=== PATIENT | female | born 1955 | race Caucasian/White ===

== ENCOUNTER 2023-08-09 09:13 | Observation (INO) ==
--- NOTE | 2023-07-16 10:15 | PAT Medication Instructions ---
Medication Instructions Date of Service July 16, 2023 Home Medications acetaminophen 325 mg capsule 325 mg PO QID PRN prn albuterol sulfate 90 mcg/actuation aerosol inhaler (Ventolin HFA) 2 puff inhalation Q6H PRN prn ascorbic acid (vitamin C) 500 mg capsule 500 mg PO TID azithromycin 250 mg tablet 250 mg PO QAM budesonide-formoterol HFA 80 mcg-4.5 mcg/actuation aerosol inhaler (Symbicort) 2 puff inhalation BID famotidine 20 mg tablet 20 mg PO BID ferrous sulfate 325 mg (65 mg iron) tablet 325 mg PO TID furosemide 20 mg tablet 20 mg PO QAM ipratropium 0.5 mg-albuterol 3 mg (2.5 mg base)/3 mL nebulization soln 3 ml inhalation Q6H PRN prn levothyroxine 50 mcg capsule 50 mcg PO QAM omeprazole 20 mg capsule,delayed release 20 mg PO QAM pregabalin 50 mg capsule 100 mg PO HS rivaroxaban 10 mg tablet 10 mg PO QPM Factor 5 2 tab PO QAM Respiractin 1 cap PO QPM Continue as directed azithromycin 250 mg tablet 250 mg PO QAM ASK your prescriber and surgeon rivaroxaban 10 mg tablet 10 mg PO QPM (in order to get spinal anesthesia DOS- must be off Xarelto/rivaroxaban for at least 72 hours) STOP taking 2 weeks before surgery Factor 5 2 tab PO QAM Respiractin 1 cap PO QPM DO NOT take the morning of surgery ascorbic acid (vitamin C) 500 mg capsule 500 mg PO TID ferrous sulfate 325 mg (65 mg iron) tablet 325 mg PO TID furosemide 20 mg tablet 20 mg PO QAM Take morning of surgery With a small sip of water, OTHERWISE NOTHING TO EAT OR DRINK AFTER MIDNIGHT: acetaminophen 325 mg capsule 325 mg PO QID PRN (if needed) albuterol sulfate 90 mcg/actuation aerosol inhaler (Ventolin HFA) 2 puff inhalation Q6H PRN (use if needed; please bring with you to hospital day of surgery if possible) budesonide-formoterol HFA 80 mcg-4.5 mcg/actuation aerosol inhaler (Symbicort) 2 puff inhalation BID famotidine 20 mg tablet 20 mg PO BID ipratropium 0.5 mg-albuterol 3 mg (2.5 mg base)/3 mL nebulization soln 3 ml inhalation Q6H PRN (if needed) levothyroxine 50 mcg capsule 50 mcg PO QAM omeprazole 20 mg capsule,delayed release 20 mg PO QAM Take evening before surgery acetaminophen 325 mg capsule 325 mg PO QID PRN (if needed) albuterol sulfate 90 mcg/actuation aerosol inhaler (Ventolin HFA) 2 puff inhalation Q6H PRN (if needed) ascorbic acid (vitamin C) 500 mg capsule 500 mg PO TID budesonide-formoterol HFA 80 mcg-4.5 mcg/actuation aerosol inhaler (Symbicort) 2 puff inhalation BID famotidine 20 mg tablet 20 mg PO BID ferrous sulfate 325 mg (65 mg iron) tablet 325 mg PO TID ipratropium 0.5 mg-albuterol 3 mg (2.5 mg base)/3 mL nebulization soln 3 ml inhalation Q6H PRN (if needed) pregabalin 50 mg capsule 100 mg PO HS Other Notes If you have any questions please call us at [phone] or [phone] or [phone] or [phone]
--- NOTE | 2023-07-19 08:54 | Anesthesiology Consultation ---
Date of Service July 19, 2023 Assessment & Plan (1) Encounter for pre-operative examination: Chart Review Chart Review: Acceptable Risk for Surgery and Patient seen in Pre Admission Testing - Patient is NOT an OPJ candidate (currently scheduled as 23 hour obs) Per PAT appt on 07/19/23, no recent illness/disease exposures, illness related symptoms, or recent illness/disease positive tests. Will leave to surgeon's discretion if preop Covid testing needed Patient seen by pulm 07/11/23= patient seen for routine follow-up and to review the results of her test. Has been fairly stable and tries to be functional. Still shortness of breath with moderate to strenuous activities. Patient is planning to have right knee replacement surgery and was wondering if it would be okay to go off Xarelto for 3 days prior to procedure. Interstitial lung diseasepatient clinically stable remains functional. Will continue to monitor conservatively at this point. Pulmonary hypertensionusing diuretic as recommen ded. OSAusing CPAP. Moderate persistent asthmacontinue with inhaler. Stable hernia with GERDcontinue reflux precautions. Morbid obesitycontinue diet and exercise as tolerated. COVID-19clinically stable. History of pulmonary embolismon Xarelto. She can stop her Xarelto 3 days before surgery. Continue current medications. Follow-up in 1 year Teaching & Discussion Pre-Anesthesia Teaching/Discussion Notes: Instructed NPO after midnight before surgery,except medications with 15 cc of water. Medication instructions provided according to the PAT guidelines. History Surgery Operation Date: 08/10/23 08:10 Proposed Procedures p Right Total Knee Arthroplasty - Amilcar Johnston, Height/Weight Height: 5 ft 1 in Weight: 110 kg Allergies Allergy/AdvReac Type Severity Reaction Status Date / Time enoxaparin [From Lovenox] Allergy Severe Rash Verified 07/13/23 11:27 contrast Allergy Severe rash, Uncoded 07/13/23 11:27 itching, chills Medications Home Medications Medication Instructions Recorded Confirmed Last Taken acetaminophen 325 mg capsule 325 mg PO QID PRN prn 05/16/23 07/16/23 Unknown albuterol sulfate 90 mcg/actuation 2 puff inhalation Q6H PRN prn 05/16/23 1 09/16/22 Unknown aerosol inhaler (Ventolin HFA) ascorbic acid (vitamin C) 500 mg 500 mg PO TID 05/16/23 07/16/23 Unknown capsule azithromycin 250 mg tablet 250 mg PO QAM 05/16/23 07/16/23 Unknown budesonide-formoterol HFA 80 2 puff inhalation BID 05/16/23 07/16/23 Unknown mcg-4.5 mcg/actuation aerosol inhaler (Symbicort) famotidine 20 mg tablet 20 mg PO BID 05/16/23 07/16/23 Unknown ferrous sulfate 325 mg (65 mg 325 mg PO TID 05/16/23 07/16/23 Unknown iron) tablet furosemide 20 mg tablet 20 mg PO QAM 05/16/23 07/16/23 Unknown ipratropium 0.5 mg-albuterol 3 mg 3 ml inhalation Q6H PRN prn 05/16/23 07/16/23 Unknown (2.5 mg base)/3 mL nebulization soln levothyroxine 50 mcg capsule 50 mcg PO QAM 05/16/23 07/16/23 Unknown omeprazole 20 mg capsule,delayed 20 mg PO QAM 05/16/23 07/16/23 Unknown release pregabalin 50 mg capsule 100 mg PO HS 05/16/23 07/16/23 Unknown rivaroxaban 10 mg tablet 10 mg PO QPM 05/16/23 07/16/23 Unknown Factor 5 2 tab PO QAM 07/13/23 07/16/23 Unknown Respiractin 1 cap PO QPM 07/13/23 07/16/23 Unknown psyllium husk 1 tbsp PO DAILY 07/16/23 07/16/23 Unknown Past Medical History Medical History (Updated 07/19/23 @ 09:49 by Salma Trammell PA-C) History of DVT (deep vein thrombosis) 2015- provoked 2020- s/p Covid infection Hiatal hernia Pulmonary hypertension Estimated PASP is 58 mmHg per 2020 ECHO Hypothyroidism roasterman (current) use of anticoagulants Hx pulmonary embolism 2020 after COVID diagnosis GI bleed 2021, saw Gastro at the time and was cleared, no longer seeing Atrial fibrillation one occurrence 5 years ago, 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, PE and DVT, resolved Exercise / Class Metabolic Activity II 4-5 Yardwork/Stairs/Walk up hill (one flight of stairs - no chest pain or SOB ) Past Surgical History Surgical History History of colonoscopy History of bronchoscopy Past Anesthesia History No Hx of Anesthesia Complications and No Family Hx of Anesthesia Complications History of PONV No Hx of PONV and No Hx of Motion Sickness Social History Smoking Status: Never smoker Do You Dip or Chew Tobacco: No Hx Alcohol Use: No Hx Substance Use: No Review of Systems - Reflux - controlled with medications Patient denies chest pain, shortness of breath, dyspnea on exertion, reflux, cough, wheezing, palpitations. No hx of seizures, stroke, ND. No hx of blood transfusions Physical Exam Vital Signs VITALS BP 126/75 P 70 TEMP 97.7 SP02 95% RESP 16 Constitutional no acute distress ENMT Mouth: no TMJ clicking Thyromental Distance: > or= 3.5 Finger Breadths (3.5) Mallampati Class: II Full upper denture Missing bottom side teeth and molars Neck neck extension not limited Respiratory normal respiratory effort; no respiratory distress Auscultation: lungs clear to auscultation bilaterally; no wheezes Cardiovascular Rate/Rhythm: regular rate and regular rhythm Heart Sounds: no murmur Vessels: no carotid bruit Musculoskeletal Spine: no pain with cervical ROM Extremities: extremities normal to inspection Psychiatric Orientation: alert Lab Results Anesthesia Preop Results Results Anesthesia Widget: WBC 6.86 K/ul (4.8-10.8) 07/19/23 Hgb 13.8 g/dl (12.0-16.0) 07/19/23 Hct 43.1 % (37.0-47.0) 07/19/23 Plt 255 K/uL (130-400) 07/19/23 Na 142 mmol/L (136-145) 07/19/23 K 4.0 mmol/L (3.5-5.1) 07/19/23 Cl 108 mmol/L (98-107) H 07/19/23 CO2 28 mmol/L (21-32) 07/19/23 BUN 23 mg/dl (6-23) 07/19/23 Creat 0.79 mg/dl (0.6-1.2) 07/19/23 Glucose Level 91 mg/dl (70-99(Fasting)) 07/19/23 PT 10.6 Seconds (9.0-12.0) 07/19/23 PTT 29 Seconds (21-31) 07/19/23 INR 1.0 (0.9-1.1) 07/19/23 Blood Type A Positive 07/19/23 Antibody Screen NEGATIVE 07/19/23 Testing Electrocardiogram Date: 07/19/23 Findings: + NSR @ (61bpm) RBBB Chest X-Ray Date: 07/11/23 Findings: + NAD and + cardiomegaly Circumscribed retrocardiac density distended with air, compatible with large hiatal hernia Echocardiogram Date: 05/09/21 EF: 50-54% LV Function: normal Other Findings: no LVH or no diastolic dysfunction Septal motion is normal, mild hypokinesis of the inferior lateral wall and inferior wall. RV systolic function is mildly reduced. Estimated PASP is 58 mmHg Dilated IVC with reduced collapsibility with sniff indicates an elevated right atrial pressure of 15 mmHg Mild MR. Mild TR
--- NOTE | 2023-08-08 07:37 | History & Physical Report ---
Date of Service August 08, 2023 Assessment & Plan (1) Osteoarthritis of right knee: We will proceed with a right total knee arthroplasty. Postoperatively she will be started on Xarelto for DVT prophylaxis and kept overnight in the hospital for postop medical management. She plans to use energy physical therapy upon discharge. History of Present Illness Chief Complaint: Osteoarthritis of the right knee. Primary Care Provider: Candie Rey PA-C Shraddha is a pleasant 68-year-old female who has been dealing with chronic increasing bilateral knee pain, the right worse than left. She saw another provider about a year ago. She has been treated conservatively for her knees. She is struggling more and more with her knees. Her right knee is keeping her from doing simple activities of daily living. She is really struggling with it. X-rays in the office show chronic worsening osteoarthritis of the knee. After failing conservative treatment, she has elected to proceed with a right total knee arthroplasty. Allergies Allergy/AdvReac Type Severity Reaction Status Date / Time enoxaparin [From Lovenox] Allergy Severe Rash Verified 07/13/23 11:27 contrast Allergy Severe rash, Uncoded 07/13/23 11:27 itching, chills Home Medications Medication Instructions Recorded Confirmed Type acetaminophen 325 mg capsule 325 mg PO QID PRN prn 05/16/23 07/16/23 History albuterol sulfate 90 mcg/actuation 2 puff inhalation Q6H PRN prn 05/16/23 07/16/23 History aerosol inhaler (Ventolin HFA) ascorbic acid (vitamin C) 500 mg 500 mg PO TID 05/16/23 07/16/23 History capsule azithromycin 250 mg tablet 250 mg PO QAM 05/16/23 07/16/23 History budesonide-formoterol HFA 80 2 puff inhalation BID 05/16/23 07/16/23 History mcg-4.5 mcg/actuation aerosol inhaler (Symbicort) famotidine 20 mg tablet 20 mg PO BID 05/16/23 07/16/23 History ferrous sulfate 325 mg (65 mg 325 mg PO TID 05/16/23 07/16/23 History iron) tablet furosemide 20 mg tablet 20 mg PO QAM 05/16/23 07/16/23 History ipratropium 0.5 mg-albuterol 3 mg 3 ml inhalation Q6H PRN prn 05/16/23 07/16/23 History (2.5 mg base)/3 mL nebulization soln levothyroxine 50 mcg capsule 50 mcg PO QAM 05/16/23 07/16/23 History omeprazole 20 mg capsule,delayed 20 mg PO QAM 05/16/23 07/16/23 History release pregabalin 50 mg capsule 100 mg PO HS 05/16/23 07/16/23 History rivaroxaban 10 mg tablet 10 mg PO QPM 05/16/23 07/16/23 History Factor 5 2 tab PO QAM 07/13/23 07/16/23 History Respiractin 1 cap PO QPM 07/13/23 07/16/23 History psyllium husk 1 tbsp PO DAILY 07/16/23 07/16/23 History Past Med/Surg History Medical History History of DVT (deep vein thrombosis) 2015- provoked 2020- s/p Covid infection Hiatal hernia Pulmonary hypertension Estimated PASP is 58 mmHg per 2020 ECHO 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 Hx pulmonary embolism 2020 after COVID diagnosis GI bleed 2021, saw Gastro at the time and was cleared, no longer seeing Atrial fibrillation one occurrence 5 years ago, 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, 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 Sleep apnea CPAP 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- follows with Dr Bernal, [facility], last seen 07/11/2023, takes Zithromax 3 times a week History of fungal pneumonia bilateral, 2018 History of COVID-19 2020, hospitalized [facility], PE and DVT, resolved Surgical History History of colonoscopy History of bronchoscopy Social History Smoking Status: Never smoker Second Hand Exposure: No; Do You Dip or Chew Tobacco: No; Tobacco Cessation Education Requested by Patient: No Hx Alcohol Use: No Hx Substance Use: No Preferred Language: American 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 Physical Exam On physical exam of the right knee, she has range of motion from 10 to 110 degrees. She has a large soft tissue envelope. No gross instability. Pain of the distal femoral condyles.. Constitutional WD/WN, vitals as above Eyes PERRL, conjunctivae normal, anicteric sclerae ENMT external ear and nose normal, oropharynx normal Neck trachea midline, no thyromegaly Respiratory normal respiratory effort Cardiovascular RRR, no murmur, no edema Gastrointestinal (Abdomen) normal bowel sounds, soft, nontender, no hepatosplenomegaly Psychiatric A+Ox3, euthymic affect Results & Data Results & Data Laboratory Results . Diagnostic Findings X-rays of the right knee show advanced osteoarthritis with joint space narrowing, osteophyte formation, and [id number] articulation. PG Care Time/CCT Total # of Minutes Spent Total Time Spent with Patient: Total time spent is greater than 50% in coordination of care (as documented) at patient's floor/unit and/or counseling patient: Coding Level of Care Code None Diagnoses Osteoarthritis of right knee M17.11
[~2023-08-09 09:13] MED LIST: ACETAMINOPHEN 500 MG TAB PO SCH; BUPIVACAINE 0.25% PF 30 ML VIAL ONE; BUPIVACAINE 0.5 % 5 MG/1 ML PF 10ML VIAL ONE; DEXAMETHASONE SOD INJ 4 MG/ML VIAL ONE; EPINEPHrine INJ 1 MG/ML AMP ONE; FAMOTIDINE 20 MG TAB PO SCH; GABAPENTIN 300 MG CAP PO SCH; LR 500ML BOLUS, THEN 15ML/HR IV SCH; LR 60ML/HR IV SCH; ORTHO JOINT MIX INFIL SCH; TRANEXAMIC ACID 1,000 MG **IV Intra-op IV SCH; TRANEXAMIC ACID 1,000 MG **IV Pre-op IV SCH; ceFAZolin 2000MG 2,000 MG/15 ML SYR IV SCH; dexAMETHasone 4 MG TAB PO SCH
[2023-08-09] MEDS ORDERED: PROPOFOL IV EMULSION 10 MG/ML 20 ML VIAL IV ONE ×3 (10:18→13:49)
[2023-08-09] MEDS ORDERED: MIDAZOLAM HCL 1 MG/ML 2ML VIAL ONE (10:18)
--- OUTSIDE RECORDS SUMMARY | 2023-08-09 10:37 | External Medical Summary | Summary of Care ---
Author Name Unknown Organization [facility] Address [address] [place] [address] Phone [phone] Care Team Providers Care Gas Tester Name Role Phone Candie Rey PA-C Primary Care Provider +1- [phone] Reason for Visit * Reason Onset Date Comments Medication Refill 07/24/2023 Encounter Details Date Type Department Care Team (Late st Contact Info) Description 07/24/2023 Refill [place] [address] [place], [place] [id number] Candie Rey PA-C [facility] [place], [place] [id number] Neuropathy Allergies Active Allergy Reactions Criticality Noted Date Comments Iodinated Contrast Media 01/26/2022 Will need premedicated for any Contrast Studies Enoxaparin Rash High 05/16/2021 documented as of this encounter (statuses as of 07/25/2023) Medications Medication Sig Dispensed Refills Start Date End Date Status acetaminophen (TYLENOL) 325 MG Tablet Take 1 Tablet by mouth every 4 hours as needed for Pain. 0 Active Ascorbic Acid (VITAMIN C) 500 MG CAPSIndications:Ir on deficiency anemia, unspecified iron deficiency anemia type Take 1 Cap by mouth 2 times a day. With iron 180 Cap 3 01/31/2020 Active Ventolin HFA 108 (90 Base) MCG/ACT Inhalation Aerosol Solution Inhale 2 Puffs by mouth every 4 hours as needed for Shortness of Breath. 18 g 6 07/28/2020 Active Spacer/Aero-Holdin g Chambers Device Use as directed with Symbicort. 1 Each 0 08/11/2020 Active CAM MISCELLANEOUS MEDICATION Take 2 Caps by mouth daily. Factor five herbal supplement from apothecary - Take 2 capsules by mouth daily for inflammation 0 Active CPAP every night at bedtime. Auto 6-15 cm 0 Active Ipratropium-Albute rol 0.5-2.5 (3) MG/3ML Inhalation Solution (Duoneb)Indication s:ILD (interstitial lung disease) ([facility]),Pulmonary hypertension (HCC) INHALE THE CONTENTS OF 1 VIAL VIA NEBULIZER 3 TIMES A DAY NEEDED 810 mL 3 04/25/2021 Active Azithromycin 250 MG Oral Tablet (Zithromax)Indicat ions:Interstitial lung disease (HCC) Mondays, Wednesdays, and Fridays 39 Tablet 3 10/04/2022 Active Symbicort 80-4.5 MCG/ACT Inhalation Aerosol (Budesonide-Formot parish)Indications:I nterstitial lung disease (HCC) INHALE 2 PUFFS IN THE MORNING AND 2 PUFFS BEFORE BEDTIME 30.6 g 3 11/24/2022 Active Famotidine 20 MG Oral Tablet (Pepcid)Indication s:Gastroesophageal reflux disease without esophagitis TAKE 1 TABLET EVERY 12 HOURS 180 Tablet 2 01/03/2023 Active Omeprazole 20 MG Oral Capsule Delayed Release (PriLOSEC)Indicati ons:Gastroesophage al reflux disease without esophagitis TAKE 1 CAPSULE EVERY DAY 90 Capsule 2 01/03/2023 Active Levothyroxine Sodium 50 MCG Oral Tablet (Levoxyl)Indicatio ns:Hypothyroidism, unspecified type TAKE 1 TABLET EVERY DAY FIRST THING IN THE MORNING 90 Tablet 1 03/08/2023 Active Furosemide 20 MG Oral Tablet (Lasix) TAKE 2 TABLETS IN THE MORNING 180 Tablet 1 03/08/2023 Active FeroSul 325 (65 Fe) MG Oral Tablet (Ferrous Sulfate)Indication s:Iron deficiency anemia, unspecified iron deficiency anemia type TAKE 1 TABLET THREE TIMES DAILY (MORNING, NOON, AND BEFORE BEDTIME) 270 Tablet 2 04/10/2023 Active Rivaroxaban 10 MG Oral Tablet (Xarelto)Indicatio ns:History of GI bleed,History of DVT (deep vein thrombosis),Other acute pulmonary embolism without acute cor pulmonale (HCC) Take 1 Tablet by mouth in the morning. 90 Tablet 3 04/12/2023 Active Pregabalin 50 MG Oral Capsule (Lyrica)Indication s:Neuropathy Take 2 Capsules by mouth at bedtime. 180 Capsule 1 07/25/2023 Active Pregabalin 50 MG Oral Capsule (Lyrica)Indication s:Neuropathy TAKE 2 CAPSULES AT BEDTIME 180 Capsule 1 01/12/2023 07/24/20 23 Discontinu ed(Refill) Hospital, Clinic, or Other Facility Administered Medication Ordered Dose Route Frequency Start Date End Date Status Albuterol Sulfate (Proventil) (2.5 MG/3ML) 0.083% inhalation solution 2.5 mgIndications:Interstit ial lung disease (HCC) 2.5 mg NEBULIZER PRN 10/04/2022 10/04/2023 Ac tive Albuterol Sulfate (Proventil) (5 MG/ML) 0.5% *conc* inhalation solution 2.5 mgIndications:Interstit ial lung disease (HCC) 2.5 mg NEBULIZER PRN 10/04/2022 10/04/2023 Ac tive Albuterol Sulfate (Proventil) (2.5 MG/3ML) 0.083% inhalation solution 2.5 mgIndications:Interstit ial lung disease (HCC) 2.5 mg NEBULIZER PRN 07/11/2023 07/10/2024 Ac tive Albuterol Sulfate (Proventil) (5 MG/ML) 0.5% *conc* inhalation solution 2.5 mgIndications:Interstit ial lung disease (HCC) 2.5 mg NEBULIZER PRN 07/11/2023 07/10/2024 Ac tive documented as of this encounter (statuses as of 07/25/2023) Active Problems Problem Noted Date Diagnosed Date History of pulmonary embolism 11/08/2021 History of 2019 novel coronavirus disease (COVID -19) 11/08/2021 Cardiac murmur, previously undiagnosed JANINE (obstructive sleep apnea) 07/19/2020 Class 3 severe obesity due t o excess calories with serious comorbidity and body mass index (BMI) of 45.0 to 49.9 in adult 08/20/2019 Acquired hypothyroidism 02/17/2019 RBBB (right bundle branch block) 08/27/2018 Chronic diastolic congestive heart failure 08/19 Pulmonary hypertension 08/19/2018 Interstitial lung disease 08/19/2018 History of atrial flutter 08/19/2018 History of DVT (deep vein thrombosis) 08/19/2018 Gastroesophageal reflux disease without esophagi tis 07/09/2018 Large hiatal hernia 06/30/2018 Chronic hypoxemic respiratory failure 06/28/2018 documented as of this encounter (statuses as of 07/25/2023) Resolved Problems Problem Noted Date Diagnosed Date Resolved Date Pulmonary embolism 05/06/2021 2 Hypoxia 05/06/2021 11/08/2021 COVID-19 05/06/2021 11/08/2021 Chronic deep vein thrombosis (DVT) of femoral vein of right lower extremity 08/30/2020 11/08/2021 GI bleed 03/07/2020 12/17/2020 Lower GI bleed 03/03/2020 03/10/2020 Body mass index (BMI) of 40. 0 to 44.9 in adult 02/17/2019 08/30/2020 Overview: Per Obesity protocol Class 3 severe obesity due t o excess calories with serious comorbidity and body mass index (BMI) of 45.0 to 49.9 in adult 08/19/2018 9 Overview: Per Obesity protocol Aspiration pneumonitis 06/30/201808/19 Morbid obesity 06/30/2018 08/19/2018 Chronic anticoagulation 06/28/201804/14 documented as of this encounter (statuses as of 07/25/2023) Immunizations No known immunizationsdocumented as of this encounter Social History Tobacco Use Types Packs/Day Years Used Date Smoking Tobacco: Never Smokeless Tobacco: Never Alcohol Use Standard Drinks/Week Comments No 0 (1 standard drink = 0.6 oz pur e alcohol) AUDIT-C Answer Date Recorded Frequency of Alcohol Consumption Never 06/28/2018 Average Number of Drinks Not on file 018 Frequency of Binge Drinking Not on file 06/13 PHQ-2 Answer Date Recorded PHQ Adult Total Score 2 06/19/2022 Hunger Vital Sign Answer Date Recorded Within the past 12 months, y ou worried that your food would run out before you got the money to buy more. Never true 06/19/20 22 Within the past 12 months, t he food you bought just didn't last and you didn't have money to get more. Never true 06/19/2022 Sex and Gender Information Value Date Recorded Sex Assigned at Female 03/10/2020 10:47 AM EDT Gender Identity Female 03/10/2020 10:47 AM EDT Sexual Orientation Straight 03/10/2020 10 :47 AM EDT Job Start Date Occupation Industry Not on file Not on file Not on file documented as of this encounter Functional Status Functional Status Response Date of Assess ment Are you deaf or do you have serious difficulty h earing? No 05/06/2021 Are you blind or do you have serious difficulty seeing, even when wearing glasses? No 05/06/2021 Do you have serious difficul ty walking or climbing stairs? (5 years old or older) No 05/06/2021 Do you have difficulty dress ing or bathing? (5 years old or older) No 05/06/2021 Because of a physical, menta l, or emotional condition, do you have difficulty doing errands alone such as visiting a doctor s office or shopping? (15 years old or older) No 05/06/20 21 Cognitive Status Response Date of Assessm ent Because of a physical, menta l, or emotional condition, do you have serious difficulty concentrating, remembering, or making decisions? (5 years old or older) No 05/06/2021 documented as of this encounter Miscellaneous Notes * Telephone Encounter - Candie Rey PA-C - 07/25/2023 7:08 AM ESTSigned Prescriptions: Disp Refills Pregabalin 50 MG Oral Capsule (Lyrica) 180 Ca*1 Sig: Take 2 Capsules by mouth at bedtime. Authorizing Provider: CANDIE REY * Telephone Encounter - Ricardo Cheung [facility] - 07/24/2023 10:11 AM EST Pending Prescriptions: Disp Refills Pregabalin 50 MG Oral Capsule (Lyrica) 180 Ca*1 Sig: Take 2 Capsules by mouth at bedtime. * Telephone Encounter - Ricardo Cheung [facility] - 07/24/2023 10:10 AM EST I have reviewed the patients controlled substance dispensing history in the Prescription Drug Monitoring Program in compliance with the [facility] regulations before prescribing a controlled substance. PDMP checked on 07/24/2023. Pending Prescriptions: Disp Refills Pregabalin 50 MG Oral Capsule (Lyrica) 180 Ca*1 Sig: Take 2 Capsules by mouth at bedtime. Last Visit: 03/13/2023 (in office), Visit date not found (telemedicine) Next Visit: 09/14/2023 Date medication was last filled: 04/10/2023 Date medication is due for refill: 07/08/2023 Pharmacy: [facility] [address] [facility] [place] Is this request for a controlled substance? Yes and Urine Drug Screen Not completed Toxicology results: No results found for this or any previous visit. Please approve if appropriate. Thanks, Ricardo Cheung Pharm.D. Clinical Pharmacist [facility] ([facility])(Formerly Telepharmacy) [phone] 07/24/2023, 10:10 AM * Telephone Encounter - Magalie Jose CPhT - 07/24/2023 9:57 AM EST Pt is out. Did you pend patient's preferred pharmacy and medication before forwarding?yes Pharmacy: [facility] [address] [facility] [place] Pending Prescriptions: Disp Refills Pregabalin 50 MG Oral Capsule (Lyrica) 180 Ca*1 Sig: Take 2 Capsules by mouth at bedtime. Last Visit: 03/13/2023 (in office), Visit date not found (telemedicine) Next Visit: 09/14/2023 If no future appointments scheduled, and last appointment is greater than a year ago, please schedule patient for a follow-up appointment Last date the medication was ordered: 01/12/23 Is this request for a controlled substance?Yes, What was the last refill date 01/12/23 w/ quantity 180 and dosage 50 mg and Urine Drug Screen Not completed Urine Drug Screen:No results found for this or any previous visit. Patient Phone Numbers Labs: Lab Results Component Value Date/Time CREAT 0.9 08/24/2022 07:22 AM CREAT 0.8 03/07/2020 07:39 AM POTASSIUM 4.7 08/24/2022 07:22 AM POTASSIUM 4.2 03/07/2020 07:39 AM TSH 2.62 08/24/2022 07:22 AM TSH 2.24 01/15/2020 08:09 AM LDLCALC 114 08/24/2022 07:22 AM LDLCALC 89 01/19/2020 08:05 AM LDLDIRECT NOT APPLICABLE 01/19/2020 08:05 AM LDLDIRECT 119 12/05/2018 08:17 AM ALT 15 08/24/2022 07:22 AM ALT 13 03/06/2020 06:01 AM HGBA1C 5.3 08/24/2022 07:22 AM documented in this encounter Plan of Treatment Upcoming Encounters Date Type Department Care Team (Late st Contact Info) Description 09/05/2023 8:30 AM EST [facility]ment [facility] [place] [address] 09/14/2023 9:00 AM EST [facility] [address] [place] [address] Candie Rey PAHalleyC [address] [facility] [address] 07/11/2024 11:00 AM EST PulmDiagnostic Pulmonary Function Lab, [facility] [address] [place] [address] Gl, Pulm Function [facility] 2 [address] [facility] [address] 07/11/2024 11:30 AM EST Appointment Radiology, [facility] [address] [place] [id number] Scheduled Procedures Name Priority Associated Diagnoses Date/Ti me COLONOSCOPY FLEXIBLE PROXIMAL DIAGNOSTIC Recall Diverticulosis Health Maintenance Due Date Last Done Comments COVID-19 Vaccine (#1) 1955 Pneumococcal Vaccine: 65+ Years (1 - PCV) 1962 DTaP,Tdap,and Td Vaccines (1 - Tdap) 1975 Zoster Vaccines (1 of 2) 2006 Influenza Vaccine (FLU shot) (#1) 2023 Depression Screening 06/19/2023 06/19/2022 TSH 08/24/2023 08/24/2022, 12/2021, 01/14/2021, Additional history exists Mammogram 09/04/2023 09/04/2022, 08/14, 03/04/2021, Additional history exists Diabetes Screening 08/24/2025 08/24/2022, 0 08/24/2022, 01/24/2022, Additional history exists COLONOSCOPY-EVERY 5 YRS AGES 18-100 01/06/2026 01/06/2021, 01/06/2021, 03/05/2020, Additional history exists Lipid Panel 08/24/2027 08/24/2022, 06/0 03/2020, 12/05/2018 DXA Scan 06/29/2029 06/29/2022 Pap Smear Discontinued 08/20/2019, 08/20/2019 GARDASIL-HPV IMMUNIZATION SERIES Aged Out No longer eligible based on patient's age to complete this topic Hepatitis B Aged Out No longer eligi ble based on patient's age to complete this topic MENINGOCOCCAL (MENACTRA/MENVEO) Aged Out No longer eligible based on patient's age to complete this topic documented as of this encounter Medical Devices Implanted Type Area Head Of Art Device Identifier Shelf Expiration Date Model / Serial / Lot Clip Quick 2.8mm 230cm - [id number] Implanted:Qty: 5 on 03/05/2020 by Brent Barrow MD at [facility] [employer] 05/12/2022 [id number] / [id number] Description:Sigmoid colon = site placed documented as of this encounter Visit Diagnoses Diagnosis Neuropathy Mononeuritis of unspecified site documented in this encounter Advance Directives Documents on File Type Date Recorded 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 Question Answer Comments Discussion of Advance Directives occurred with: Patient Code Status History Code Status Date Activated Date Inactivated Comments Full Code 12/15/2020 10:57 AM 12/17/2020 5:31 PM This o rder reflects the patients wishes and were consensually agreed upon. Full Code 03/05/2020 5:40 PM 03/07/2020 4:18 PM This order reflects the patients wishes and were consensually agreed upon. Question Answer Comments Discussion of Advance Directives occurred with: Patient Does the patient have a Living Will? No Does the patient have Health Care Power of Peoplesoft Fscm Developer? No Full Code 03/03/2020 4:23 PM 03/03/2020 9:41 PM This order reflects the patients wishes and were consensually agreed upon. Question Answer Comments Discussion of Advance Directives occurred with: Patient Full Code 06/28/2018 9:42 AM 07/18/2018 6:19 PM This order reflects the patients wishes and were consensually agreed upon. Question Answer Comments Discussion of Advance Directives occurred with: Patient/Family Care Teams Gas Tester Relationship Specialty Start Date End Date Candie Rey, PASTORC [address] [facility] [place] [address] PCP - General Physician Mason Foreman/Superintendant 08/30/20 documented as of this encounter
--- OUTSIDE RECORDS SUMMARY | 2023-08-09 10:37 | External Medical Summary | Summary of Care ---
Author Name Unknown Organization [facility] Address [address] [place] [address] Phone [phone] Care Team Providers Care Hole Digger Name Role Phone Candie Rey PA-C Primary Care Provider +1- [phone] Reason for Visit * Reason Comments eRx-Medication Refill Encounter Details Date Type Department Care Team (Late st Contact Info) Description 07/31/2023 Refill Pulmonary Medicine James Lyles [address] [place] [address] Sherrell Bernal MD [address] [place] [id number] Interstitial lung disease (HCC) Allergies Active Allergy Reactions Criticality Noted Date Comments Iodinated Contrast Media 01/26/2022 Will need premedicated for any Contrast Studies Enoxaparin Rash High 05/16/2021 documented as of this encounter (statuses as of 08/02/2023) Medications Medication Sig Dispensed Refills Start Date End Date Status acetaminophen (TYLENOL) 325 MG Tablet Take 1 Tablet by mouth every 4 hours as needed for Pain. 0 Active Ascorbic Acid (VITAMIN C) 500 MG CAPSIndications:Ir on deficiency anemia, unspecified iron deficiency anemia type Take 1 Cap by mouth 2 times a day. With iron 180 Cap 3 0 Active Ventolin HFA 108 (90 Base) MCG/ACT Inhalation Aerosol Solution Inhale 2 Puffs by mouth every 4 hours as needed for Shortness of Breath. 18 g 6 0 Active Spacer/Aero-Holdin g Chambers Device Use as directed with Symbicort. 1 Each 0 0 Active CAM MISCELLANEOUS MEDICATION Take 2 Caps by mouth daily. Factor five herbal supplement from [employer] - Take 2 capsules by mouth daily for inflammation 0 Active CPAP every night at bedtime. Auto 6-15 cm 0 Active Ipratropium-Albute rol 0.5-2.5 (3) MG/3ML Inhalation Solution (Duoneb)Indication s:ILD (interstitial lung disease) ([facility]),Pulmonary hypertension (HCC) INHALE THE CONTENTS OF 1 VIAL VIA NEBULIZER 3 TIMES A DAY NEEDED 810 mL 3 1 Active Symbicort 80-4.5 MCG/ACT Inhalation Aerosol (Budesonide-Formot parish)Indications:I nterstitial lung disease (HCC) INHALE 2 PUFFS IN THE MORNING AND 2 PUFFS BEFORE BEDTIME 30.6 g 3 3 Active Famotidine 20 MG Oral Tablet (Pepcid)Indication s:Gastroesophageal reflux disease without esophagitis TAKE 1 TABLET EVERY 12 HOURS 180 Tablet 2 3 Active Omeprazole 20 MG Oral Capsule Delayed Release (PriLOSEC)Indicati ons:Gastroesophage al reflux disease without esophagitis TAKE 1 CAPSULE EVERY DAY 90 Capsule 2 3 Active Levothyroxine Sodium 50 MCG Oral Tablet (Levoxyl)Indicatio ns:Hypothyroidism, unspecified type TAKE 1 TABLET EVERY DAY FIRST THING IN THE MORNING 90 Tablet 1 3 Active Furosemide 20 MG Oral Tablet (Lasix) TAKE 2 TABLETS IN THE MORNING 180 Tablet 1 3 Active FeroSul 325 (65 Fe) MG Oral Tablet (Ferrous Sulfate)Indication s:Iron deficiency anemia, unspecified iron deficiency anemia type TAKE 1 TABLET THREE TIMES DAILY (MORNING, NOON, AND BEFORE BEDTIME) 270 Tablet 2 3 Active Rivaroxaban 10 MG Oral Tablet (Xarelto)Indicatio ns:History of GI bleed,History of DVT (deep vein thrombosis),Other acute pulmonary embolism without acute cor pulmonale (HCC) Take 1 Tablet by mouth in the morning. 90 Tablet 3 3 Active Pregabalin 50 MG Oral Capsule (Lyrica)Indication s:Neuropathy Take 2 Capsules by mouth at bedtime. 180 Capsule 1 3 Active Azithromycin 250 MG Oral Tablet (Zithromax)Indicat ions:Interstitial lung disease (HCC) TAKE 1 TABLET ON SUN, SUN AND SUN 39 Tablet 3 3 Active Azithromycin 250 MG Oral Tablet (Zithromax)Indicat ions:Interstitial lung disease (HCC) Mondays, Wednesdays, and Fridays 39 Tablet 3 3 08/02/20 23 Discontinued Hospital, Clinic, or Other Facility Administered Medication [...] as of this encounter (statuses as of 08/02/2023) Active Problems Problem Noted Date Diagnosed Date History of pulmonary embolism 11/08/2021 History of 2019 novel coronavirus disease (COVID -19) 11/08/2021 Cardiac murmur, previously undiagnosed 1 JANINE (obstructive sleep apnea) 07/19/2020 Class 3 [...] as of this encounter (statuses as of 08/02/2023) Resolved Problems Problem Noted Date Diagnosed Date [...] as of this encounter (statuses as of 08/02/2023) Immunizations No known immunizationsdocumented as of this [...] (15 years old or older) No 05/06/20 Cognitive Status Response Date of Assessm ent Because of a physical, menta l, or emotional condition, do you have serious difficulty concentrating, remembering, or making decisions? (5 years old or older) No 05/06/2021 documented as of this encounter Miscellaneous Notes * Telephone Encounter - Sherrell Bernal MD - 08/02/2023 8:18 AM ESTSigned Prescriptions: Disp Refills Azithromycin 250 MG Oral Tablet (Zithromax)39 Tab*3 Sig: TAKE 1 TABLET ON MON, WED AND FRI Authorizing Provider: SHERRELL BERNAL * Telephone Encounter - Sola Kingsley LPN - 07/31/2023 11:46 AM ESTPending Prescriptions: Disp Refills Azithromycin 250 MG Oral Tablet [Pharmacy *39 Tab*3 Sig: TAKE 1 TABLET ON MON, WED AND FRI * Telephone Encounter - Sola Kingsley LPN - 07/31/2023 11:45 AM EST Did you pend patient's preferred pharmacy and medication before forwarding?yes Pharmacy: [facility] [address] [facility] [place] Pending Prescriptions: Disp Refills Azithromycin 250 MG Oral Tablet (Zithroma*39 Tab*3 Sig: TAKE 1 TABLET ON SUN, SUN AND SUN Last Visit: 07/11/2023 (in office), Visit date not found (telemedicine) Next Visit: Visit date not found If no future appointments scheduled, and last appointment is greater than a year ago, please schedule patient for a follow-up appointment Last date the medication was ordered: 10/04/22 Is this request for a controlled substance?No Urine Drug Screen:No results found for this [...] Info) Description 09/05/2023 8:30 AM EST Appointment Radiology[address] [place] [address] 09/14/2023 9:00 AM EST Office Visit [place] [address] [place] [address] Candie Rey PARiaz [address] [place] [address] 07/11/2024 11:00 AM EST PulmDiagnostic Pulmonary Function Lab, [address] [address] [address], Pulm Function Room 2 [address] [facility] [place] [address] 07/11/2024 11:30 AM EST Appointment Radiology, [address] [place] [phone] Scheduled Procedures Name Priority Associated Diagnoses Date/Ti me COLONOSCOPY FLEXIBLE PROXIMAL DIAGNOSTIC Recall Diverticulosis Health Maintenance Due Date Last Done Comments COVID-19 Vaccine (#1) 1955 Pneumococcal Vaccine: 65+ Years (1 - PCV) 1962 DTaP,Tdap,and Td Vaccines (1 - Tdap) 1975 Zoster Vaccines (1 of 2) 2006 Influenza Vaccine (FLU shot) (#1) 2023 Depression Screening 06/19/2023 06/19/2022 TSH 08/24/2023 08/24/2022, 0 12/2021, 01/14/2021, Additional history exists Mammogram 09/04/2023 09/04/2022, 08/14, 03/04/2021, Additional history exists Diabetes Screening 08/24/2025 08/24/2022, 0 08/24/2022, 01/24/2022, Additional history exists COLONOSCOPY-EVERY 5 YRS AGES 18-100 01/06/2026 01/06/2021, 01/06/2021, 03/05/2020, Additional history exists Lipid Panel 08/24/2027 08/24/2022, 060 03/2020, 12/05/2018 DXA Scan 06/29/2029 06/29/2022 Pap [...] this encounter Medical Devices Implanted Type Area Wireless Consultant Device Identifier Shelf Expiration Date Model / Serial / Lot Clip Quick 2.8mm 230cm - [id number] Implanted:Qty: 5 on 03/05/2020 by Brent Barrow MD at [facility] [employer] [facility] 05/12/2022 [id number] / [id number] Description:Sigmoid colon = site placed documented as of this encounter Visit Diagnoses Diagnosis Interstitial lung disease (HCC) Postinflammatory pulmonary fibrosis documented in this encounter Advance Directives Documents on File Type Date Recorded 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 No Full Code 03/03/2020 4:23 PM 03/03/2020 9:41 PM This order reflects the patients wishes and were consensually agreed upon. Question Answer Comments Discussion of Advance Directives occurred with: Patient Full Code 06/28/2018 9:42 AM 07/18/2018 6:19 PM This order reflects the patients wishes and were consensually agreed upon. Question Answer Comments Discussion of Advance Directives occurred with: Patient/Family Care Teams Hole Digger Relationship Specialty Start Date End Date Candie Rey PA-C [address] [place] [address] [place] [address] PCP - General Physician Plumbing Assembler 08/30/20 documented as of this encounter
[2023-08-09] MEDS ORDERED: fentaNYL citrate PF 100 MCG/2 ML VIAL IV PRN (11:05)
[2023-08-09] MEDS ORDERED: ePHEDrine sulfate 50 MG/ML AMP IV PRN (11:05)
[2023-08-09] MEDS ORDERED: ATROPINE SULFATE 0.1 MG/ML 10ML SYR IV PRN (11:05)
[2023-08-09] MEDS ORDERED: ONDANSETRON INJ 2 MG/ML 2 ML VIAL IV PRN ×2 (11:05→17:04)
[2023-08-09] MEDS ORDERED: ORTHO JOINT ANESTHETIC ONE (11:41)
--- NOTE | 2023-08-09 11:46 | History & Physical Bridge Note ---
Date of Service August 09, 2023 History & Physical Bridge Note I have examined the patient, reviewed the History & Physical and in the interval since the performance of the History & Physical I have noted the following changes of clinical significance: no changes noted
[2023-08-09] MEDS ORDERED: ONDANSETRON INJ 2 MG/ML 2 ML VIAL ONE (12:42)
--- NOTE | 2023-08-09 13:37 | Operative Report ---
PG Post Operative Report Pre & Post Diagnosis Operation Date: 08/09/23 11:00 Pre-Op Diagnosis: Osteoarthritis of right knee Post-Op Diagnosis: Osteoarthritis of right knee I identified the patient and participated in the time-out.: Yes Procedure Operation Date: 08/09/23 11:00 Actual Procedures p Right Total Knee Arthroplasty(Right) - Amilcar Johnston DO Surgeon Amilcar Johnston DO Assistant Bookkeeper Redd Ramirez PA-C Estimated Blood Loss 30 Findings Consistent with Post-Op Diagnosis Specimens Right femoral and tibial bone Description of Procedure Implants used: I used a Zeina Persona total knee arthroplasty system with a size 7 standard PRK femur, D tibia, 31 oval patella, and a size 18 CCK polyethylene bearing. All components were cemented in place with Biomet cement. Shraddha arrived [facility] for the above procedure. She was seen in the preoperative holding area and the operative extremity was identified and signed. She was given a preoperative antibiotic, TXA, a spinal anesthetic and an adductor nerve block. She was taken back to the operating room and laid on the table in supine position. She was given basic sedation. The operative knee was then prepped and draped in sterile fashion. A timeout was done, and the patient and the operative extremity was properly identified. A midline incision was made directly over the patella. Dissection was taken down to the extensor mechanism. A medial parapatellar arthrotomy was used. The medial retinaculum was released and the fat pad was mostly excised. The knee was flexed and the ACL, PCL, and meniscus were removed. A drill was sent down the center of the femoral canal followed by an intramedullary blake. Off that blake a distal femoral cutting block was placed. 9 mm was resected off the distal femur at 5 of valgus. A posterior referencing AP sizing guide was then placed on the distal femur. The femur measured to be a size 7. 2 drill holes were placed in 3 of external rotation. A 4-in-1 cutting block was then impacted into place. Anterior, posterior, and chamfer cuts were then made. The proximal tibia was then exposed. An external tibial alignment guide was placed. A tibial cut guide was then anchored in place and the proximal tibia was then resected. The posterior aspect of the knee was then opened up and any additional meniscus fragments and osteophytes were removed. The tibia measured to be a size D. The tibial plate was then placed in the appropriate rotation and the tibia was drilled and punched. Trial components were then placed. I used a size 18 CCK polyethylene insert. The knee was brought through a full range of motion and felt to be stable. The peg holes for the femoral component were then drilled. The patella was then everted and 9 mm was resected off the posterior aspect of the patella. The patella measured to be a size 31 oval. 3 peg holes were then drilled. A trial patella was placed. The knee was once again brought through a full range of motion and felt to be stable. Trial components were then removed. The surrounding soft tissues were injected with 100 cc of an orthopedic pain control cocktail. All components were then cemented into place with Biomet cement. The final polyethylene insert was then snapped into place. Once cement was dry the tourniquet was deflated. Hemostasis was obtained. A dilute betadyne lavage was then done for 3 minutes. The joint was then irrigated with normal saline solution. The medial parapatellar arthrotomy was then closed with #1 Vicryl suture. The skin was closed with 2-0 Vicryl, 3-0V lock suture, and emy. A soft compressive dressing was placed. She was then transferred to a hospital bed and taken to the postanesthesia care unit in stable condition. She tolerated the procedure well. Redd Ramirez PA-C, was present for the entire procedure. He was critical for patient positioning, prepping, draping, retraction exposure, wound closure and application of sterile dressing. I attest to the content of the Intraoperative Record and any orders documented therein. Any exceptions are noted below.
--- NOTE | 2023-08-09 14:57 | XRay Report ---
TWO VIEWS RIGHT KNEE CLINICAL HISTORY: Postoperative examination. FINDINGS: AP and crosstable lateral portable views of the right knee are obtained. A right knee arthr oplasty is in near anatomic alignment. There has been undersurface remodeling of the patella. No acut e fracture is seen. There are expected postoperative changes around the knee including skin clips, so ft tissue edema, and subcutaneous gas. IMPRESSION: Expected postoperative changes status post right knee arthroplasty. No acute fracture is seen. ACT 112: Negative or not required by law. Electronically signed by: Den Andujar M.D. 08/09/2023 2:55 PM
--- NOTE | 2023-08-09 15:06 | Anesthesiology Progress Note ---
Date of Service August 09, 2023 Anesthesia Post Procedure Vital Signs Vital Signs: Temp Pulse Resp BP Pulse Ox O2 Del Method O2 Flow Rate 08/09/23 15:00 58 L 18 108/68 97 Nasal Cannula 2 08/09/23 14:50 53 L 20 114/67 97 Nasal Cannula 2 08/09/23 14:40 55 L 18 120/73 96 Nasal Cannula 2 08/09/23 14:30 57 L 20 113/62 96 Nasal Cannula 2 08/09/23 14:20 36.4 C L 61 18 114/67 91 Nasal Cannula 2 08/09/23 09:35 36.9 C 66 20 155/92 H 93 Room Air Pain Intensity Right Knee: Pain Intensity: 0 Transfer of Care Handoff Completed per policy Notes Mental Status: alert / awake / arousable Patient Amnestic to Procedure: Yes Nausea / Vomiting: adequately controlled Pain: adequately controlled Airway Patency, RR, SpO2: stable & adequate BP & HR: stable & adequate Hydration State: stable & adequate Neuraxial Anesthesia: was administered and sensory block is resolving Anesthetic Complications: no major complications apparent
[2023-08-09] MEDS ORDERED: NALOXONE HCL 0.4 MG/1 ML VIAL/CARP IV PRN (17:04)
[2023-08-09] MEDS ORDERED: METOCLOPRAMIDE HCL INJ 5 MG/ML 2 ML VIAL IV PRN (17:04)
[2023-08-09] MEDS ORDERED: MAGNESIUM HYDROXIDE SUSP 30 ML UDC PO PRN (17:04)
[2023-08-09] MEDS ORDERED: bisacodyL 10 MG SUPP PR PRN (17:04)
[2023-08-09] MEDS ORDERED: HYDROmorphone INJ 0.5 MG/0.5 ML SYR IV PRN (17:04)
[2023-08-09] MEDS: SODIUM CHLORIDE 0.9% 1,000 ML IV SCH (17:16)
[2023-08-09] MEDS: KETOROLAC TROMETHAMINE 15 MG/ML VIAL IV SCH ×2 (17:47→22:30)
[2023-08-09] MEDS: ceFAZolin 2000MG 2,000 MG/15 ML SYR IV SCH (20:02)
[2023-08-09] MEDS: DOCUSATE SODIUM 100 MG CAP PO SCH (20:08)
[2023-08-09] MEDS: FAMOTIDINE 20 MG TAB PO SCH (20:09)
[2023-08-09] MEDS: oxyCODONE HCL IR 5 MG TAB (IMMEDIATE RELEASE) PO PRN (20:46)
[2023-08-09] MEDS ORDERED: SENNA 8.6 MG TAB PO SCH (21:00)
[2023-08-09] MEDS ORDERED: PREGABALIN 100 MG CAP PO SCH (21:00)
[2023-08-09] MEDS: ACETAMINOPHEN 500 MG TAB PO SCH (22:30)
[2023-08-10] MEDS: SODIUM CHLORIDE 0.9% 1,000 ML IV SCH (02:46)
[2023-08-10] MEDS: ACETAMINOPHEN 500 MG TAB PO SCH (05:07)
[2023-08-10] MEDS: ceFAZolin 2000MG 2,000 MG/15 ML SYR IV SCH (05:07)
[2023-08-10] MEDS: KETOROLAC TROMETHAMINE 15 MG/ML VIAL IV SCH (05:07)
[2023-08-10] MEDS ORDERED: LEVOTHYROXINE SODIUM 50 MCG TABLET PO SCH (06:30)
[2023-08-10] MEDS ORDERED: dexAMETHasone 4 MG TAB PO SCH (08:00)
[2023-08-10] MEDS: DOCUSATE SODIUM 100 MG CAP PO SCH (08:11)
[2023-08-10] MEDS: FAMOTIDINE 20 MG TAB PO SCH (08:11)
[2023-08-10] MEDS: oxyCODONE HCL IR 5 MG TAB (IMMEDIATE RELEASE) PO PRN (08:14)
[2023-08-10] MEDS ORDERED: MULTIVITAMIN TAB PO SCH (09:00)
[2023-08-10] MEDS ORDERED: PANTOprazole 40 MG TAB PO SCH (09:00)
[2023-08-10] MEDS ORDERED: FUROSEMIDE 20 MG TAB PO SCH (09:00)
[2023-08-10] MEDS ORDERED: FACTOR PO SCH (09:00)
--- NOTE | 2023-08-10 10:15 | Orthopedic Progress Note ---
Date of Service August 10, 2023 Assessment & Plan (1) Status post right knee replacement: Overall she is doing quite well today with good pain control to the right knee. She will work with physical therapy later on this morning to work on ambulation and range of motion exercises. She is currently on Xarelto for DVT prophylaxis. She will be discharged home later today pending physical therapy evaluation. She will follow-up in orthopedics in 2 weeks for postoperative care. Subjective . Shraddha was seen and evaluated at bedside today resting comfortably in no apparent distress. She states that her pain to the right knee is well- controlled. She has been up and ambulating with no significant issues. She has yet to work with physical therapy. She has no other concerns. Review of Systems All systems reviewed & are unremarkable except as noted in HPI & below. Physical Exam . On physical examination of the right knee, dressing is in place, clean, dry, and intact. Her leg is out in full extension. She has active plantarflexion dorsiflexion of the right ankle. +2 DP and PT pulses. Less than 2-second capillary refill. Normal sensation. Neurovascular intact. Results & Data Results & Data Laboratory Results . Diagnostic Findings . Postoperative x-rays of the right knee show prosthesis to be in anatomical alignment with no signs of fracture complication or loosening. PG Care Time/CCT Total # of Minutes Spent Total Time Spent with Patient: Total time spent is greater than 50% in coordination of care (as documented) at patient's floor/unit and/or counseling patient: Coding Level of Care Code 97640 Post Operative Follow-Up Diagnoses Status post right knee replacement Z96.651
--- NOTE | 2023-08-10 10:16 | Discharge Summary ---
Date of Service August 10, 2023 Admission HPI (Per Admitting) Shraddha is a pleasant 68-year-old female who has been dealing with chronic increasing bilateral knee pain, the right worse than left. She saw another provider about a year ago. She has been treated conservatively for her knees. She is struggling more and more with her knees. Her right knee is keeping her from doing simple activities of daily living. She is really struggling with it. X-rays in the office show chronic worsening osteoarthritis of the knee. After failing conservative treatment, she has elected to proceed with a right total knee arthroplasty. Admission Exam (Per Admitting) On physical exam of the right knee, she has range of motion from 10 to 110 degrees. She has a large soft tissue envelope. No gross instability. Pain of the distal femoral condyles.. Principal Diagnosis Same as "Discharge Diagnosis" noted below under Discharge Instructions. Discharge Exam . On physical examination of the right knee, dressing is in place, clean, dry, and intact. Her leg is out in full extension. She has active plantarflexion dorsiflexion of the right ankle. +2 DP and PT pulses. Less than 2-second capillary refill. Normal sensation. Neurovascular intact. Discharge Data Procedures Performed Operation Date: 08/09/23 11:00 Actual Procedures p Right Total Knee Arthroplasty(Right) - Amilcar Johnston DO Ordered Studies 08/09/23 05:00 US - OR guided needle placemen Routine Hospital Course (1) Status post right knee replacement: On August 09, 2023 Shraddha arrived at [facility] and underwent a right total knee arthroplasty without complications. She had a spinal anesthetic. Postoperatively, she was restarted on Xarelto for DVT prophylaxis and transferred to the general orthopedic floor in stable condition. Her hospital course was uneventful. On postoperative day #1, her vital signs were stable and her pain was well-controlled. She participated well with physical therapy doing ambulation and range of motion exercises. She was then discharged home in stable condition. She will follow-up in orthopedics in 2 weeks for postoperative care. PG Care Time/CCT Total # of Minutes Spent Total Time Spent with Patient: Total time spent is greater than 50% in coordination of care (as documented) at patient's floor/unit and/or counseling patient: Discharge Plan Discharge Items Patient Disposition: Home - Home Health Services Reason For Visit: POST OP Discharge Diagnosis: Same Activity: Per Instructions section Non-emergency contact: Surgeon Call non-emergency contact if: your temperature is above 101.5, your wound has increased redness and your wound has increased drainage Follow-up/Referrals: Candie Rey PA-C [Primary Care Provider] - Diet: Regular Addtl Attending Provider Instructions: Activity and Therapy Recommendations: * If you are using [facility] then therapy will be provided at your home until they feel you have accomplished all of your goals. * If you are using [facility] then Physical Therapy will be provided until they feel you are ready to start Outpatient Physical Therapy. * If you are not using home therapy then Outpatient Physical Therapy should start about 3-5 days from your day of surgery. Therapy will last about 6-10 weeks * It is important not to put a pillow under your knee when you are relaxing or sleeping. It is just as important to make sure you are getting your knee perfectly straight as it is to regain your knee bend. * You were shown a series of exercises in the hospital. Do these exercises three times each day including the exercises you were shown in physical therapy. * Get up and walk several times each day. For the first four weeks, try not to stand or walk for more than one hour at a time. If you do stand or walk for more than one hour, you will not hurt anything, but your leg will likely swell. * As you feel comfortable, you may change from the walker or crutches to a cane and then to independent walking. Medications: * Narcotic You will likely be sent home from the hospital with a prescription for the narcotic pain medication that worked best throughout your stay. * Cefadroxil -take the antibiotic twice a day for 10 days to help prevent infection. * Continue taking your Xarelto as prescribed. * Other medications may be prescribed for specific circumstances. If you have any questions, please call the office at . * Resume previous home medications unless otherwise instructed TEDs/Elastic Stockings: The white elastic stockings help limit swelling and prevent blood clots from forming in your legs.~ The more you wear them, the more they work. Wear them for six weeks. Dressing Care: The dressing can be changed after physical therapy on postop day #1. Daily dry dressing changes for a few days, especially if the incision is still draining some. If the incision is not draining then you may leave the emy open to air. If there is a little bit of drainage or if the emy are getting stuck on your clothing then cover the incision with a dry dressing. The emy will be removed at your 2 week follow-up appointment. Showering: You may shower 5 days from the day of surgery as long as the incision is no longer draining. You may shower with the emy exposed. Let soapy water run over the emy and pat them dry. Do not scrub or soak the incision. Things To Watch For: * Drainage from the incision site that occurs more than one week after your surgery. * Increased redness at the incision site. * Fever above 102 degrees Fahrenheit. * Unusual chest pain or shortness of breath. * Call [facility] at with any of the above problems Follow-Up Visit: Follow-up with Dr. Johnston's PA (Amilcar Vaca) 2-3 weeks after your day of surgery. He will remove your emy and answer any questions. If you have any additional questions or concerns, Dr Johnston is usually in the office at the same time and will be available An appointment was probably scheduled when you signed-up for surgery in the office. If you have any questions call Office Instructions: More detailed instructions as well as Frequently Asked Questions were provided in a folder by our office when you signed-up for surgery. Please review these instructions when you get home. If you have any further questions or concerns, please feel free to call the office at [phone] Pending Studies at Discharge: No Stand-Alone Forms: [facility], Smoking Cessation Medications and DC Order Prescriptions: New oxycodone 5 mg Tablet 5 mg PO Q6 PRN (Reason: pain) Qty: 30 0RF cefadroxil 500 mg capsule 500 mg PO BID 10 Days Qty: 20 0RF Continued acetaminophen 325 mg capsule 325 mg PO QID PRN (Reason: prn) ipratropium-albuterol 0.5 mg-3 mg(2.5 mg base)/3 mL solution for nebulization 3 ml inhalation Q6H PRN (Reason: prn) famotidine 20 mg tablet 20 mg PO BID ferrous sulfate 325 mg (65 mg iron) tablet 325 mg PO TID furosemide 20 mg tablet 20 mg PO QAM levothyroxine 50 mcg capsule 50 mcg PO QAM omeprazole 20 mg capsule,delayed release(DR/EC) 20 mg PO QAM pregabalin 50 mg capsule 100 mg PO HS rivaroxaban 10 mg tablet 10 mg PO QPM Rx Instructions: for 35 days budesonide-formoterol [Symbicort] 80-4.5 mcg/actuation HFA aerosol inhaler 2 puff inhalation BID albuterol sulfate [Ventolin HFA] 90 mcg/actuation HFA aerosol inhaler 2 puff inhalation Q6H PRN (Reason: prn) ascorbic acid (vitamin C) 500 mg capsule 500 mg PO TID Factor 5 2 tab PO QAM Patient Comments: herbal supplement, tumeric, garlic, horsetail, stinging metal, celery Respiractin 1 cap PO QPM Patient Comments: puria, zeinab ox, skullcap root, kellie leaf, nigella, sinkiang bulb, magnolia bark extract, cinnamon bark, thyme, schisandra rodriguez ingredients per patient psyllium husk 1 tbsp PO DAILY Discontinued azithromycin 250 mg tablet 250 mg PO QAM Rx Instructions: sun orally daily; start on day 2 of therapy Admission Data Admit Date/Time: 08/09/23 14:16 Attending Provider: Amiclar Johnston Admit Provider: Amilcar Johnston Primary Care Provider: Candie Rey
[2023-08-10] MEDS ORDERED: RIVAROXABAN 10 MG TABLET PO SCH (21:00)
== END 2023-08-10 11:09 | disposition home health service (06) ==
LOC: PACUINP 09:13 → ASU 09:13 → 3E 17:00

== ENCOUNTER 2023-09-01 11:54 | Inpatient (IN) ==
[2023-09-01] MEDS ORDERED: cefTRIAXone SODIUM 2,000 MG/50 ML BAG IV STA (12:18)
[2023-09-01] MEDS ORDERED: VANCOMYCIN HCL 2,000 MG in SODIUM CHLORIDE 0.9% 500 ML IV ONE (12:18)
[2023-09-01] MEDS ORDERED: VANCOMYCIN CONSULT ACTIVE PRN ×2 (12:18→14:07)
--- NOTE | 2023-09-01 12:22 | Emergency Department Note ---
Impression & Plan Post op infection, Cellulitis ED Provider Note NAME: TAY BLANDON AGE: 68 SEX: F : 1955 ARRIVES VIA: Walk-In INFORMANT: Patient ED PROVIDER(S): Brigido Palmer DO CHIEF COMPLAINT: possible infection HPI: Patient is a 68-year-old female who had her right knee replaced by Dr. Johnston 3 weeks ago. She had the emy removed on Sunday. She notes over the past 48 hours she has noticed surrounding redness and green to yellow drainage from the incision midline. She notes it is becoming cool and is slightly more uncomfortable to move. She denies any headache or change in vision. No chest pain or shortness of breath. No nausea vomiting or diarrhea. ADDITIONAL HISTORY OBTAINED: Per HPI Chronic Medical/Social Conditions Affecting Care: Per HPI PAST MEDICAL HISTORY:See Below PAST SURGICAL HISTORY:See Below FAMILY HISTORY:See Below SOCIAL HISTORY:See Below HOME MEDICATIONS:See Below ALLERGIES:See Below VITALS:See Below PHYSICAL EXAMINATION: GENERAL: Sitting up in bed, alert, well appearing, well nourished, no distress, non-toxic EYE EXAM: normal conjunctiva. OROPHARYNX: no exudate, no erythema, lips, buccal mucosa, and tongue normal and mucous membranes are moist NECK: supple, no nuchal rigidity, no adenopathy, non-tender LUNGS: Clear to auscultation. Normal chest wall mechanics HEART: no murmurs, S1 normal and S2 normal ABDOMEN: abdomen soft, non-tender, normo-active bowel sounds, no masses, no rebound or guarding. UPPER EXTREMITIES: upper extremities are grossly normal. LOWER EXTREMITIES: Incision midline is approximated with some dehiscence and surrounding erythema midline in the middle of the incision. Skin is warm and tender. Patient does have range of motion. DP 2 out of 4. NEURO EXAM: Normal sensorium, cranial nerves II-XII grossly intact, normal speech, no gross weakness of arms, no gross weakness of legs. MEDICAL DECISION MAKING: Patient is a 68-year-old female who presents ER for above-stated complaint. IV was established blood work was obtained. Labs show no significant leukocytosis or anemia. BMP was unremarkable. Midline incision of the right knee is erythematous warm and slightly tender. Patient notes drainage/yellow purulence from it. Ordered Rocephin and vancomycin. Discussed with orthopedics as well as the hospitalist and patient was admitted for orthopedic evaluation. Consults/Care Managements Discussions: Per MDM Triage Nursing notes reviewed. Limited review of prior medical records performed Vital Signs: reviewed and remarkable for HTN Differential diagnosis: Cellulitis, abscess, MRSA infection, DVT, necrotizing fasciitis, dermatitis, drug eruption, allergic reaction, as well as other pathologies. ER treatment provided: See below Diagnostics interpreted by me include EKG and cardiac monitoring as listed below: -Cardiac Monitoring: An order was placed for continuous cardiac monitoring. The monitor shows a rate of 80 with sinus rhythm. -ECG: none -Laboratory studies:Interpreted by me as stated above in MDM and shown below. Imaging studies: Xrays: As interpreted by me:none CTs show: none Procedures:none Critical Care: None Past Med/Surg History Medical History (Updated 09/01/23 @ 17:26 by Brigido Palmer DO) Surgical site infection History of DVT (deep vein thrombosis) 2014- provoked 2020- s/p Covid infection Hiatal hernia Pulmonary hypertension Estimated PASP is 58 mmHg per 2020 ECHO Hypothyroidism residential (current) use of anticoagulants Hx pulmonary embolism 2020 after COVID diagnosis GI bleed 2021, saw Gastro at the time and was cleared, no longer seeing Atrial fibrillation one occurrence 5 years ago, 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, 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 Sleep apnea CPAP 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- follows with Dr Bernal, [facility], last seen 07/11/2023, takes Zithromax 3 times a week History of fungal pneumonia bilateral, 2018 History of COVID-19 2020, hospitalized [facility], PE and DVT, resolved Surgical History History of colonoscopy History of bronchoscopy Social History Smoking Status: Never smoker Second Hand Exposure: No; Do You Dip or Chew Tobacco: No; Tobacco Cessation Education Requested by Patient: No Hx Alcohol Use: No Hx Substance Use: No Preferred Language: Malawian Communication Ability: Effective Players Club Representative Required: No Beliefs That Will Affect Care: None Current Living Situation: Alone Current Living Situation Comment: Alone in own home Other Information That Helps Us Care for You: No Feels Safe at Home: Yes Safety Concerns: Feels Safe At This Time Assistive Devices: Walker Allergies Allergies Allergy/AdvReac Type Severity Reaction Status Date / Time enoxaparin [From Lovenox] Allergy Severe Rash Verified 08/09/23 09:30 contrast Allergy Severe rash, Uncoded 08/09/23 09:30 itching, chills Home Meds Home Medications Medication Instructions Recorded Confirmed acetaminophen 325 mg capsule 325 mg PO QID PRN prn 05/16/23 09/01/23 albuterol sulfate 90 mcg/actuation 2 puff inhalation Q6H PRN prn 05/16/23 09/01/23 aerosol inhaler (Ventolin HFA) ascorbic acid (vitamin C) 500 mg 500 mg PO TID 05/16/23 09/01/23 capsule budesonide-formoterol HFA 80 2 puff inhalation BID 05/16/23 09/01/23 mcg-4.5 mcg/actuation aerosol inhaler (Symbicort) famotidine 20 mg tablet 20 mg PO BID 05/16/23 09/01/23 ferrous sulfate 325 mg (65 mg 325 mg PO TID 05/16/23 09/01/23 iron) tablet furosemide 20 mg tablet 40 mg PO QAM 05/16/23 09/01/23 ipratropium 0.5 mg-albuterol 3 mg 3 ml inhalation Q6H PRN prn 05/16/23 09/01/23 (2.5 mg base)/3 mL nebulization soln levothyroxine 50 mcg capsule 50 mcg PO QAM 05/16/23 09/01/23 omeprazole 20 mg capsule,delayed 20 mg PO QAM 05/16/23 09/01/23 release pregabalin 50 mg capsule 100 mg PO HS 05/16/23 09/01/23 rivaroxaban 10 mg tablet (Xarelto) 10 mg PO QPM 05/16/23 09/01/23 psyllium husk 1 tbsp PO DAILY 07/16/23 09/01/23 Previous Rx's Medication Instructions Recorded oxycodone 5 mg tablet 5 mg PO Q6 PRN pain #30 tabs 08/10/23 Results & Data (ED) Vital Signs Vital Signs - 24 hr 09/01/23 12:02 Temperature 36.8 C Temperature Source Temporal Artery Scan Pulse Rate 78 Respiratory Rate 21 Respiratory Effort / Characteristics Non-Labored Spontaneous Respiratory Depth Normal Respiratory Pattern Regular Blood Pressure 161/94 H Blood Pressure Mean 116 Blood Pressure Position Sitting Pulse Oximetry 94 Oxygen Delivery Method Room Air Sepsis Recent Fever Within 48 Hours No Sepsis New/Unexplained Change in Mental Status No Sepsis Action Taken by Nursing No Action Required Laboratory Data 09/01/23 12:15 09/01/23 12:15 Lab Results 09/01/23 Range/Units 12:15 WBC 9.96 (4.8-10.8) K/ul RBC 4.60 (4.20-5.40) M/uL Hgb 13.7 (12.0-16.0) g/dl Hct 42.3 (37.0-47.0) % MCV 92.0 (80.0-100.0) fL MCH 29.8 (25.0-34.0) pg MCHC 32.4 (32.0-36.0) g/dL RDW Std Deviation 47.8 H (36.4-46.3) fL RDW Coeff of Arelis 14.2 (11.5-14.5) % Plt Count 293 (130-400) K/uL MPV 9.9 (9.4-12.4) fL Immature Gran % (Auto) 0.4 % Neut % (Auto) 68.7 % Lymph % (Auto) 21.7 % [place] % (Auto) 8.0 % Eos % (Auto) 0.5 % Baso % (Auto) 0.7 % Neut # (Auto) 6.84 H (1.40-6.50) K/uL Lymph # (Auto) 2.16 (1.20-3.40) K/uL [place] # (Auto) 0.80 H (0.11-0.59) K/uL Eos # (Auto) 0.05 (0.00-0.50) K/uL Baso # (Auto) 0.07 (0.00-0.20) K/uL Immature Gran # (Auto) 0.04 (0.01-0.20) K/uL Sodium 140 (136-145) mmol/L Potassium 3.8 (3.5-5.1) mmol/L Chloride 107 (98-107) mmol/L Carbon Dioxide 24 (21-32) mmol/L Anion Gap 9 (3-11) BUN 21 (6-23) mg/dl Creatinine 0.79 (0.6-1.2) mg/dl Est Cr Clr Drug Dosing Not Reportable Est GFR ( Amer) 89.8 ml/min Est GFR (Non-Af Amer) 77.5 ml/min BUN/Creatinine Ratio 26.6 H (10-20) Glucose 96 (70-99(Fasting)) mg/dl Calcium 9.1 (8.6-10.3) mg/dl Administered Medications Ferrous Sulfate (Ferrous Sulfate 325 Mg Tab) 325 mg PO TIDM MIROSLAVA Stop: 10/01/23 16:59 Last Admin: 09/01/23 17:02 Dose: 325 mg Documented By: GEOVANY Discontinued Medications Vancomycin HCl 2,000 mg/ (Sodium Chloride) 540 mls @ 200 mls/hr IV NOW ONE Stop: 09/01/23 14:59 Last Infusion: 09/01/23 16:18 Dose: Infused Documented By: Admin: 09/01/23 13:32 Dose: 200 mls/hr Documented By: BROCK Ceftriaxone Sodium (Rocephin) 2,000 mg in 50 mls @ 100 mls/hr IV NOW STA Stop: 09/01/23 12:47 Last Infusion: 09/01/23 13:08 Dose: Infused Documented By: Admin: 09/01/23 12:34 Dose: 100 mls/hr Documented By: GUADALUPE Vancomycin HCl 1,500 mg/ (Sodium Chloride) 530 mls @ 200 mls/hr IV Q12H [facility] Stop: 09/08/23 14:14 Last Admin: 09/01/23 14:37 Dose: Not Given Documented By: Discharge Plan Visit Data Chief Complaint: Infection, Wound Stated Complaint: RT KNEE LAC INFECTION ED Provider: Brigido Palmer Discharge Problem: Post op infection, Cellulitis Patient Disposition: Admitted As Inpatient Discharge Instructions Interventions: ED Discharge Assessment Last Done: 09/01/23 14:47 Discharge Problem: Post op infection Qualifiers: Encounter type: initial encounter Postoperative infection type: unspecified type Qualified Code(s): T81.40XA - Infection following a procedure, unspecified, initial encounter Cellulitis Qualifiers: Site of cellulitis: unspecified site Qualified Code(s): L03.90 - Cellulitis, unspecified
[2023-09-01 12:35] LABS: Basophils # (auto) 0.07 K/uL (0.00-0.20); Basophils % (auto) 0.7 %; Eosinophils # (auto) 0.05 K/uL (0.00-0.50); Eosinophils % (auto) 0.5 %; Hematocrit (blood only) 42.3 % (37.0-47.0); Hemoglobin 13.7 g/dl (12.0-16.0); Immature Granulocytes # (auto) 0.04 K/uL (0.01-0.20); Immature Granulocytes % (auto) 0.4 %; Lymphocytes # (auto) 2.16 K/uL (1.20-3.40); Lymphocytes % (auto) 21.7 %; Mean Corpuscular Hemoglobin 29.8 pg (25.0-34.0); Mean Corpuscular Hgb Conc 32.4 g/dL (32.0-36.0); Mean Platelet Volume 9.9 fL (9.4-12.4); Neutrophils # (auto) 6.84 K/uL (1.40-6.50); Neutrophils % (auto) 68.7 %; Platelet Count 293 K/uL (130-400); RDW Coefficient of Variation 14.2 % (11.5-14.5); RDW Standard Deviation 47.8 fL (36.4-46.3); White Blood Count 9.96 K/ul (4.8-10.8)
[2023-09-01 13:07] LABS: Anion Gap 9 (3-11); BUN Creatinine Ratio 26.6 (10-20); Blood Urea Nitrogen 21 mg/dl (6-23); Calcium 9.1 mg/dl (8.6-10.3); Carbon Dioxide 24 mmol/L (21-32); Chloride 107 mmol/L (98-107); Est GFR (African American) 89.8 ml/min; Est GFR (Non-African American) 77.5 ml/min; Glucose 96 mg/dl (70-99(Fasting)); Potassium 3.8 mmol/L (3.5-5.1); Sodium 140 mmol/L (136-145)
[2023-09-01] MEDS ORDERED: MAGNESIUM HYDROXIDE SUSP 30 ML UDC PO PRN (13:19)
[2023-09-01] MEDS ORDERED: POLYETHYLENE (MIRALAX) 17 GM PACK PO PRN (13:19)
[2023-09-01] MEDS ORDERED: ALUMINUM/MAGNESIUM SUSP 30 ML UDC PO PRN (13:19)
[2023-09-01] MEDS ORDERED: ONDANSETRON INJ 2 MG/ML 2 ML VIAL IV PRN (13:19)
--- NOTE | 2023-09-01 13:31 | History & Physical Report ---
Date of Service September 01, 2023 Assessment & Plan (1) Surgical site infection: (2) Pulmonary fibrosis: (3) Hx pulmonary embolism: (4) History of DVT (deep vein thrombosis): (5) intermediate (current) use of anticoagulants: (6) Hypothyroidism: Plan Right Total Knee Arthroplasty on 08/09/23 under the care of Dr. Johnston; emy removed on Monday 08/28; now erythematous at site with green drainage; non- maldordours started 48 hr ago after she started her exercises. Does not appear toxic, no leukocytosis and is afebrile. Denies pain in right knee. ED physician spoke with Ortho air conditioning equipment mechanic who will formally see the patient. For now, recommended IV antibiotics. Vanco and Ceftriaxone started in ED. She uses a can int he house and walker outside of the house to ambulate. Other PMH includes: H/O DVT provoked in 2014; on Xarelto. H/O PE 2020 post covid. H/O Fungal PNA and pulm fibrosis; follows Dr. Bernla and takes Azithro three times weekly. No leukocytosis, afebrile, and does not appear toxic. Knee xray in ED without fracture and noted expected postoperative changes. Pt denies CHEEK, dizziness, SOB, chest pain, palpitations, neuropathy, N/V/D, abdominal pain or tenderness, visual or auditory changes, mental status changes, recent falls or trauma. Pt denies tobacco use, alcohol use, recreational drug use. She has not had any other major surgeries. No family history of AMI or CVA. On examination, AAO x4, right knee midline incision erythematous with green drainage. (+) popliteal and pedal pulses. Will admit for continuation of IV abx, NPO after MN with pending orthopedics consultation. Discussed with Orthopedics; ok to continue Xarelto for now. Surgical site infection: Acute Right Total Knee Arthroplasty on 08/09/23 under the care of Dr. 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 Bernal; last appt 07/11/23 Takes Zithromax three times weekly;continue Takes Lasix; continue JANINE: Chronic Uses Symbicort and Albuterol PRN; cont Wears CPAP at home; will order CPAP while here at [facility] Disposition: PCP: Candie Rey PA-C Code Status: Full Code VTE Prophylaxis: On Xarelto I spent a total of 87 minutes coordinating, documenting, and providing care for this patient excluding time spent in the performance of separately billed services. All of the aforementioned completed while collaborating with the assigned attending physician for a full treatment plan. Please see their addendum for further details. History of Present Illness Chief Complaint: knee infection Primary Care Provider: Candie Rey PA-C Right Total Knee Arthroplasty on 08/09/23 under the care of Dr. Johnston; emy removed on Monday 08/28; now erythematous at site with green drainage; non- maldordours started 48 hr ago after she started her exercises. No Leukocytosis and otherwise labs unremarkable. ED physician spoke with Ortho air conditioning equipment mechanic who will formally see the patient. For now, recommended IV antibiotics. Vanco and Ceftriaxone started in ED. She uses a can int he house and walker outside of the house to ambulate. No leukocytosis and does not appear toxic. Other PMH includes: H/O DVT provoked in 2014; on Xarelto. H/O PE 2020 provoked secondary to covid. H/O Fungal PNA and pulmonary fibrosis; follows Dr. Bernal and takes Zithromax three times weekly. Pt denies CHEEK, dizziness, SOB, chest pain, palpitations, neuropathy, N/V/D, abdominal pain or tenderness, visual or auditory changes, mental status changes, recent falls or trauma. Pt denies tobacco use, alcohol use, recreational drug use. She has not had any other major surgeries. No family history of AMI or CVA. On examination, AAO x4, right knee midline incision erythematous around midline without malodor. (+) popliteal , posttibial, and pedal pulses. Will admit for continuation of IV abx, NPO after MN with pending orthopedics consultation. Discussed with Orthopedics; ok to continue Xarelto for now. Patient will be admitted for further evaluation and management. Please see A/P for further details. Allergies Allergy/AdvReac Type Severity Reaction Status Date / Time enoxaparin [From Lovenox] Allergy Severe Rash Verified 08/09/23 09:30 contrast Allergy Severe rash, Uncoded 08/09/23 09:30 itching, chills Home Medications Medication Instructions Recorded Confirmed Type acetaminophen 325 mg capsule 325 mg PO QID PRN prn 05/16/23 09/01/23 History albuterol sulfate 90 mcg/actuation 2 puff inhalation Q6H PRN prn 05/16/23 09/01/23 History aerosol inhaler (Ventolin HFA) ascorbic acid (vitamin C) 500 mg 500 mg PO TID 05/16/23 09/01/23 History capsule budesonide-formoterol HFA 80 2 puff inhalation BID 05/16/23 09/01/23 History mcg-4.5 mcg/actuation aerosol inhaler (Symbicort) famotidine 20 mg tablet 20 mg PO BID 05/16/23 09/01/23 History ferrous sulfate 325 mg (65 mg 325 mg PO TID 05/16/23 09/01/23 History iron) tablet furosemide 20 mg tablet 40 mg PO QAM 05/16/23 09/01/23 History ipratropium 0.5 mg-albuterol 3 mg 3 ml inhalation Q6H PRN prn 05/16/23 09/01/23 History (2.5 mg base)/3 mL nebulization soln levothyroxine 50 mcg capsule 50 mcg PO QAM 05/16/23 09/01/23 History omeprazole 20 mg capsule,delayed 20 mg PO QAM 05/16/23 09/01/23 History release pregabalin 50 mg capsule 100 mg PO HS 05/16/23 09/01/23 History rivaroxaban 10 mg tablet (Xarelto) 10 mg PO QPM 05/16/23 09/01/23 History psyllium husk 1 tbsp PO DAILY 07/16/23 09/01/23 History oxycodone 5 mg tablet 5 mg PO Q6 PRN pain #30 tabs 08/10/23 09/01/23 Rx Past Med/Surg History Medical History (Updated 09/01/23 @ 13:26 by TOMAS Gomez) Surgical site infection History of DVT (deep vein thrombosis) 2015- provoked 2020- s/p Covid infection Hiatal hernia Pulmonary hypertension Estimated PASP is 58 mmHg per 2020 ECHO Hypothyroidism intermediate (current) use of anticoagulants Hx pulmonary embolism 2020 after COVID diagnosis GI bleed 2021, saw Gastro at the time and was cleared, no longer seeing Atrial fibrillation one occurrence 5 years ago, 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, 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 ogist 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 Sleep apnea CPAP 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- follows with José Miguel Grant, last seen 07/11/2023, takes Zithromax 3 times a week History of fungal pneumonia bilateral, 2018 History of COVID-2020, hospitalized [facility], PE and DVT, resolved Surgical History History of colonoscopy History of bronchoscopy Social History Smoking Status: Never smoker Second Hand Exposure: No; Do You Dip or Chew Tobacco: No; Tobacco Cessation Education Requested by Patient: No Hx Alcohol Use: No Hx Substance Use: No Preferred Language: Guatemalan Communication Ability: Effective 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 Outfitter Required: No Beliefs That Will Affect Care: None Current Living Situation: Alone Current Living Situation Comment: Alone in own home Other Information That Helps Us Care for You: No Feels Safe at Home: Yes Safety Concerns: Feels Safe At This Time Assistive Devices: Walker Review of Systems Review of Systems: Neuro: (-) Falls, trauma, slurred speech HEENT: (-) CHEEK, dizziness, dysphagia, visual or auditory changes CV: (-) CP, palpitations, swelling Resp: (-) SOB GI: (-) appetite changes, N/V/D, bowel changes : (-) urinary changes Skin: (-) rashes (+) erythema at surgical site Psych: (-) anxiety, depression Physical Exam Physical Exam: See Dr. Stallworth's addendum for physical examination findings Results & Data Results & Data Vital Signs (Past 12 Hours) Vital Signs Temp Pulse Resp BP Pulse Ox O2 Del Method 09/01/23 12:02 36.8 C 78 21 161/94 H 94 Room Air Laboratory Results Short CBC 09/01/23 Range/Units 12:15 WBC 9.96 (4.8-10.8) K/ul Hgb 13.7 (12.0-16.0) g/dl Hct 42.3 (37.0-47.0) % Plt Count 293 (130-400) K/uL BMP 09/01/23 12:15 Sodium 140 Potassium 3.8 Chloride 107 Carbon Dioxide 24 BUN 21 Creatinine 0.79 Glucose 96 Calcium 9.1 Code Status & VTE Plan Code Status Full Code in the event of cardiac or respiratory arrest VTE Prophylaxis Plan VTE Prophylaxis will be ordered: Yes Supervising Physician Co-Signing Physician Notes 68 year old woman who had Right total knee arthroplasty on 08/09/23, had emy removed 3 days ago presents with drain from right knee since yesterday morning. Reports feeling some tightness around knee. Reported drainage was reddish yellowish. Denied fevers, chills, pain, nausea, vomiting. On exam, General: Obese, no acute distress Eyes: PERRL, conjunctivae normal, not pale, anicteric sclerae, EOM intact bilaterally ENMT: External ear and nose normal, oropharynx normal Respiratory: Normal respiratory effort, no respiratory distress, lungs clear to auscultation, no crackles and no wheezes Cardiovascular: RRR S1 S2 Gastrointestinal (Abdomen): Abdomen is not distended, soft, non-tender to palpation, no guarding, no palpable hepatosplenomegaly, normal bowel sounds Musculoskeletal: Tiny opening along center of Right knee surgical site with surrounding erythema. No tenderness. No drainage noted at this time Neurologic: Alert and oriented x 3, No focal weakness, sensation grossly intact Psychiatric: Alert and oriented x 3, euthymic affect Labs are unremarkable Surgical site infection Continue ceftriaxone Pharm recommended Dapto instead of vanc for better dosing due to BMI Orthopedic consult Will keep NPO PMN in case surgeon wants to take to OR. Follow up infectious workup Continue home xarelto Continue home meds Agree with plans as detailed by Harriet MARIN I spent a total of 40 minutes coordinating, documenting and providing care for this patient excluding time spent in performance of separately billed services
[2023-09-01] MEDS ORDERED: VANCOMYCIN HCL 1,500 MG in SODIUM CHLORIDE 0.9% 500 ML IV SCH (14:15)
[2023-09-01] MEDS ORDERED: ALBUT/IPRATROP 3MG/0.5MG NEB 3 ML VIAL INH PRN (14:15)
[2023-09-01] MEDS ORDERED: ALBUTEROL HFA 8 GM INHALER INH PRN (14:15)
[2023-09-01] MEDS: FERROUS SULFATE 325 MG TAB PO SCH (17:02)
[2023-09-01] MEDS: DAPTOmycin 425 MG in SYRINGE 0 ML IV SCH (18:10)
[2023-09-01] MEDS: RIVAROXABAN 10 MG TABLET PO SCH (21:08)
[2023-09-01] MEDS: FAMOTIDINE 20 MG TAB PO SCH (21:08)
[2023-09-01] MEDS: PREGABALIN 100 MG CAP PO SCH (21:08)
[2023-09-02] MEDS ORDERED: VANCOMYCIN HCL 1,500 MG in SODIUM CHLORIDE 0.9% 500 ML IV SCH (03:00)
[2023-09-02] MEDS: LEVOTHYROXINE SODIUM 50 MCG TABLET PO SCH (04:20)
[2023-09-02] MEDS: ACETAMINOPHEN 325 MG TAB PO PRN (06:49)
[2023-09-02 06:56] LABS: Hematocrit (blood only) 39.4 % (37.0-47.0); Hemoglobin 12.5 g/dl (12.0-16.0); Mean Corpuscular Hemoglobin 29.5 pg (25.0-34.0); Mean Corpuscular Hgb Conc 31.7 g/dL (32.0-36.0); Mean Corpuscular Volume 92.9 fL (80.0-100.0); Mean Platelet Volume 9.4 fL (9.4-12.4); Platelet Count 310 K/uL (130-400); RDW Coefficient of Variation 13.9 % (11.5-14.5); RDW Standard Deviation 46.8 fL (36.4-46.3); Red Blood Count 4.24 M/uL (4.20-5.40); White Blood Count 6.71 K/ul (4.8-10.8)
[2023-09-02 07:12] LABS: Albumin Globulin Ratio 1.3 (0.9-2); Albumin Level 3.6 gm/dl (3.4-5.0); BUN Creatinine Ratio 29.9 (10-20); Bilirubin,Total 1.3 mg/dl (0.2-1.0); Creatinine Clr Calc Pharmacy 92.9 ml/min; Est GFR (African American) 105.4 ml/min; Globulin 2.8 gm/dl (2.5-4.0); Magnesium 2.1 mg/dl (1.7-2.4); Phosphorus 3.5 mg/dl (2.5-4.9); Potassium 4.2 mmol/L (3.5-5.1); Total Protein 6.4 gm/dl (6.0-8.3)
--- NOTE | 2023-09-02 07:14 | Orthopedic Consultation ---
Date of Service September 02, 2023 Assessment & Plan (1) Surgical site infection: I think she is dealing with a superficial surgical site infection and some cellulitis in the area. She is on Xarelto and she is morbidly obese with a BMI of 45.3. She does not have an effusion of the knee or any significant knee pain. Her white count is normal and she is afebrile. I do not feel that there is a deep infection. I was able to express a small amount of mostly bloody fluid from around the incision. We wrapped the knee. I think it is reasonable to continue the ceftriaxone and daptomycin for now. I will feed a regular diet and see how she is doing tomorrow morning. I think it is unlikely that this will need to go to the operating room for formal washout, however we will follow closely. History of Present Illness Reason for Consultation: Right knee surgical site infection. Requesting Physician: . Attending Physician: Lissette Stallworth MD Shraddha is a pleasant six 8-year-old female who underwent a right knee replacement on August 09, 2023. She is now about 3 weeks out. She has been doing fairly well with the knee. She is not having much pain. She has a little bit of stiffness which is to be expected. Beginning 3 days ago, she began noticing some soreness and some redness in the superior aspect of her incision. She was then noted to have some erythema around the area. She went to the emergency room and was admitted to the medical service for surgical site infection. She has had a very small amount of drainage from the area. Not a lot of drainage. She is on Xarelto. Orthopedics was consulted to evaluate and treat.. Allergies Allergy/AdvReac Type Severity Reaction Status Date / Time enoxaparin [From Lovenox] Allergy Severe Rash Verified 08/09/23 09:30 contrast Allergy Severe rash, Uncoded 08/09/23 09:30 itching, chills Home Medications Medication Instructions Recorded Confirmed Type acetaminophen 325 mg capsule 325 mg PO QID PRN prn 05/16/23 09/01/23 History albuterol sulfate 90 mcg/actuation 2 puff inhalation Q6H PRN prn 05/16/23 09/01/23 History aerosol inhaler (Ventolin HFA) ascorbic acid (vitamin C) 500 mg 500 mg PO TID 05/16/23 09/01/23 History capsule budesonide-formoterol HFA 80 2 puff inhalation BID 05/16/23 09/01/23 History mcg-4.5 mcg/actuation aerosol inhaler (Symbicort) famotidine 20 mg tablet 20 mg PO BID 05/16/23 09/01/23 History ferrous sulfate 325 mg (65 mg 325 mg PO TID 05/16/23 09/01/23 History iron) tablet furosemide 20 mg tablet 40 mg PO QAM 05/16/23 09/01/23 History ipratropium 0.5 mg-albuterol 3 mg 3 ml inhalation Q6H PRN prn 05/16/23 09/01/23 History (2.5 mg base)/3 mL nebulization soln levothyroxine 50 mcg capsule 50 mcg PO QAM 05/16/23 09/01/23 History omeprazole 20 mg capsule,delayed 20 mg PO QAM 05/16/23 09/01/23 History release pregabalin 50 mg capsule 100 mg PO HS 05/16/23 09/01/23 History rivaroxaban 10 mg tablet (Xarelto) 10 mg PO QPM 05/16/23 09/01/23 History psyllium husk 1 tbsp PO DAILY 07/16/23 09/01/23 History oxycodone 5 mg tablet 5 mg PO Q6 PRN pain #30 tabs 08/10/23 09/01/23 Rx Past Med/Surg History Medical History Surgical site infection History of DVT (deep vein thrombosis) 2015- provoked 2020- s/p Covid infection Hiatal hernia Pulmonary hypertension Estimated PASP is 58 mmHg per 2020 ECHO Hypothyroidism senior living (current) use of anticoagulants Hx pulmonary embolism 2020 after COVID diagnosis GI bleed 2021, saw Gastro at the time and was cleared, no longer seeing Atrial fibrillation one occurrence 5 years ago, 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, no cardiol ogist currently Sleep apnea CPAP 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- follows with Dr Bernal, [facility], last seen 07/11/2023, takes Zithromax 3 times a week History of fungal pneumonia bilateral, 2018 History of COVID-19 2020, hospitalized [facility], PE and DVT, resolved Surgical History History of colonoscopy History of bronchoscopy Social History Smoking Status: Never smoker Second Hand Exposure: No; Do You Dip or Chew Tobacco: No; Tobacco Cessation Education Requested by Patient: No Hx Alcohol Use: No Hx Substance Use: No Preferred Language: Somali Communication Ability: Effective Business Initiatives Manager Required: No Beliefs That Will Affect Care: None Current Living Situation: Alone Current Living Situation Comment: Alone in own home Other Information That Helps Us Care for You: No Feels Safe at Home: Yes Safety Concerns: Feels Safe At This Time Assistive Devices: Walker Review of Systems All systems reviewed & are unremarkable except as noted in HPI & below. Physical Exam On examination of the right knee, the erythema is all located around the superior incision site. There does not seem to be any deep infection within the knee. There is no significant effusion. Unable to flex at about 90 degrees without much pain. There is not much drainage from the incision but I pushed on it. I was able to extract a small amount of blood-tinged mildly purulent fluid. There was not enough to really culture. A soft dressing was placed.. Constitutional WD/WN, vitals as above Eyes PERRL, conjunctivae normal, anicteric sclerae ENMT external ear and nose normal, oropharynx normal Neck trachea midline, no thyromegaly Respiratory normal respiratory effort Cardiovascular RRR, no murmur, no edema Gastrointestinal (Abdomen) normal bowel sounds, soft, nontender, no hepatosplenomegaly Psychiatric A+Ox3, euthymic affect Results & Data Results & Data Laboratory Results . Diagnostic Findings . PG Care Time/CCT Total # of Minutes Spent Total Time Spent with Patient: Total time spent is greater than 50% in coordination of care (as documented) at patient's floor/unit and/or counseling patient: Coding Level of Care Code None Diagnoses Surgical site infection T81.49XA
[2023-09-02] MEDS: FLUTICASONE/VILANTEROL 100/25MCG 14 PUFFS/INHALER INH SCH (08:30)
[2023-09-02] MEDS: PANTOprazole 40 MG TAB PO SCH (08:31)
[2023-09-02] MEDS: FAMOTIDINE 20 MG TAB PO SCH ×2 (08:31→20:12)
[2023-09-02] MEDS: FUROSEMIDE 40 MG TAB PO SCH (08:31)
[2023-09-02] MEDS: FERROUS SULFATE 325 MG TAB PO SCH ×3 (08:32→17:01)
[2023-09-02] MEDS: cefTRIAXone SODIUM 2,000 MG in DEXTROSE 5 % MINI-B 50 ML IV SCH (12:29)
--- NOTE | 2023-09-02 16:24 | Hospitalist Progress Note ---
Date of Service September 02, 2023 Assessment & Plan (1) Surgical site infection: (2) Pulmonary fibrosis: (3) Hx pulmonary embolism: (4) History of DVT (deep vein thrombosis): (5) long-term (current) use of anticoagulants: (6) Hypothyroidism: Plan Ms. Mendez is a 68 year old woman with past medical history of DVT/PE on xarelto, pulmonary fibrosis c/b fungal pneumona (Dr Bernal), hypothyroidism, RLS and JANINE who is s/p Right Total Knee Arthroplasty on 08/09/23 under the care of Dr. Johnston. Patient admitted on 09/01 due to concern for surgical site infection. Patient's bette removed on Monday 08/28. On Thursday 08/31, patient noted feeling down with her physical therapy exercises and some increased soreness. She noted redness and discharge from surgical site. Patient started on Vanc, CTX. Vanc discontiued, Dapto added. Ortho on consult, suspects likely superficial infection at this time. Plan is to continue IV antibiotics and monitor clinical response for another 24 hours. If notable improvement, potential for discharge on PO regimen with close OP follow up. If still concerned, Ortho will plan washout. #SSTI/ Surgical site infection #s/p right RKA Right Total Knee Arthroplasty on 08/09/23 under the care of Dr. 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 Bernal; last appt 07/11/23 Takes Zithromax three times weekly;continue Takes Lasix; continue #JANINE: Chronic Uses Symbicort and Albuterol PRN; cont Wears CPAP at home; will order CPAP while here at [facility] Disposition: PCP: Candie Rey PA-C Code Status: Full Code VTE Prophylaxis: On Xarelto Admission and Anticipated Discharge Date Admission Date: September 01, 2023 Subjective NAEO Patient pleasant woman, reports feeling well overall, happy that Ortho does not suspect deep infection. Denies pain, just notes that knee feels "tight" She denies any chest pain, fevers, chill, or other acute concerns Physical Exam Constitutional: WD/WN, vitals as above Respiratory: normal respiratory effort, lungs clear to auscultation Cardiovascular: RRR, no murmur, no edema Skin: Right knee with midline incision and dehiscence of superior incision site, no purulence noted, surrounding erythema within drawn marker border drawn upon admission, no tenderness posteriorly Results & Data Results & Data Vital Signs (Past 12 Hours) Vital Signs Temp Pulse Resp BP Pulse Ox O2 Del Method 09/02/23 07:46 36.6 C 69 16 119/73 95 Room Air Laboratory Results Short CBC 09/02/23 Range/Units 06:03 WBC 6.71 (4.8-10.8) K/ul Hgb 12.5 (12.0-16.0) g/dl Hct 39.4 (37.0-47.0) % Plt Count 310 (130-400) K/uL BMP 09/02/23 06:03 Sodium 142 Potassium 4.2 Chloride 109 H Carbon Dioxide 28 BUN 20 Creatinine 0.67 Glucose 93 Calcium 9.0 Liver Function 09/02/23 Range/Units 06:03 Total Bilirubin 1.3 H (0.2-1.0) mg/dl AST 12 L (13-39) U/L ALT 13 (7-52) U/L Alkaline Phosphatase 103 (34-104) U/L Albumin 3.6 (3.4-5.0) gm/dl Medications Administered Home Medications Medication Instructions Recorded Confirmed Last Taken acetaminophen 325 mg capsule 325 mg PO QID PRN prn 05/16/23 09/01/23 1 Month Ago ~07/10/23 albuterol sulfate 90 mcg/actuation 2 puff inhalation Q6H PRN prn 05/16/23 09/01/23 Unknown aerosol inhaler (Ventolin HFA) ascorbic acid (vitamin C) 500 mg 500 mg PO TID 05/16/23 09/01/23 08/08/23 20:00 capsule budesonide-formoterol HFA 80 2 puff inhalation BID 05/16/23 09/01/23 08/09/23 08:00 mcg-4.5 mcg/actuation aerosol inhaler (Symbicort) famotidine 20 mg tablet 20 mg PO BID 05/16/23 09/01/23 Unknown ferrous sulfate 325 mg (65 mg 325 mg PO TID 05/16/23 09/01/23 08/08/23 20:00 iron) tablet furosemide 20 mg tablet 40 mg PO QAM 05/16/23 09/01/23 08/08/23 08:00 ipratropium 0.5 mg-albuterol 3 mg 3 ml inhalation Q6H PRN prn 05/16/23 09/01/23 Unknown (2.5 mg base)/3 mL nebulization soln levothyroxine 50 mcg capsule 50 mcg PO QAM 05/16/23 09/01/23 Unknown omeprazole 20 mg capsule,delayed 20 mg PO QAM 05/16/23 09/01/23 Unknown release pregabalin 50 mg capsule 100 mg PO HS 05/16/23 09/01/23 08/08/23 20:00 rivaroxaban 10 mg tablet (Xarelto) 10 mg PO QPM 05/16/23 09/01/23 08/05/23 psyllium husk 1 tbsp PO DAILY 07/16/23 09/01/23 08/07/23 oxycodone 5 mg tablet 5 mg PO Q6 PRN pain #30 tabs 08/10/23 09/01/23 Unknown Active Medications Generic Name Dose Route Start Last Admin Trade Name Freq PRN Reason Stop Dose Admin Acetaminophen 650 mg 09/01/23 13:19 09/02/23 06:49 Acetaminophen 325 Mg Tab PO 10/01/23 13:18 650 mg Q4H PRN Administration pain/fever Famotidine 20 mg 09/01/23 21:00 09/02/23 08:31 Famotidine 20 Mg Tab PO 10/01/23 20:59 20 mg BID MIROSLAVA Administration Ferrous Sulfate 325 mg 09/01/23 17:00 09/02/23 12:29 Ferrous Sulfate 325 Mg Tab PO 10/01/23 16:59 325 mg TIDM MIROSLAVA Administration Fluticasone/Vilanterol 1 puffs 09/02/23 09:00 09/02/23 08:30 Fluticasone/Vilanterol 100/25mcg 14 Puffs/Inhaler INH 10/02/23 08:59 1 puffs DAILY MIROSLAVA Administration Furosemide 40 mg 09/02/23 09:00 09/02/23 08:31 Furosemide 40 Mg Tab PO 10/02/23 08:59 40 mg QAM MIROSLAVA Administration Ceftriaxone Sodium 2,000 mg/ 50 mls @ 100 mls/hr 09/02/23 12:00 09/02/23 13:06 Dextrose IV 09/09/23 11:59 Infused Q24H MIROSLAVA Infusion Protocol Daptomycin 425 mg/ Syringe 8.5 mls @ 0 mls/min 09/01/23 18:00 09/01/23 18:10 IV 09/08/23 17:59 1 mls/min Q24H MIROSLAVA Administration Protocol Levothyroxine Sodium 50 mcg 09/02/23 06:30 09/02/23 04:20 Levothyroxine Sodium 50 Mcg Tablet PO 10/02/23 06:29 50 mcg DAILYBB MIROSLAVA Administration Pantoprazole Sodium 40 mg 09/02/23 09:00 09/02/23 08:31 Pantoprazole 40 Mg Tab PO 10/02/23 08:59 40 mg QAM MIROSLAVA Administration Pregabalin 100 mg 09/01/23 21:00 09/01/23 21:08 Pregabalin 100 Mg Cap PO 10/01/23 20:59 100 mg HS MIROSLAVA Administration Rivaroxaban 10 mg 09/01/23 21:00 09/01/23 21:08 Rivaroxaban 10 Mg Tablet PO 10/01/23 20:59 10 mg QPM MIROSLAVA Administration
[2023-09-02] MEDS: DAPTOmycin 425 MG in SYRINGE 0 ML IV SCH (17:01)
[2023-09-02] MEDS: PREGABALIN 100 MG CAP PO SCH (20:11)
[2023-09-02] MEDS: RIVAROXABAN 10 MG TABLET PO SCH (20:12)
[2023-09-03] MEDS: ACETAMINOPHEN 325 MG TAB PO PRN (02:52)
[2023-09-03] MEDS: LEVOTHYROXINE SODIUM 50 MCG TABLET PO SCH (02:52)
[2023-09-03 06:09] LABS: Basophils # (auto) 0.03 K/uL (0.00-0.20); Basophils % (auto) 0.3 %; Eosinophils % (auto) 3.3 %; Hematocrit (blood only) 41.4 % (37.0-47.0); Hemoglobin 13.4 g/dl (12.0-16.0); Immature Granulocytes # (auto) 0.03 K/uL (0.01-0.20); Immature Granulocytes % (auto) 0.3 %; Lymphocytes # (auto) 1.84 K/uL (1.20-3.40); Lymphocytes % (auto) 20.3 %; Mean Corpuscular Hemoglobin 29.6 pg (25.0-34.0); Mean Corpuscular Hgb Conc 32.4 g/dL (32.0-36.0); Mean Corpuscular Volume 91.4 fL (80.0-100.0); Mean Platelet Volume 9.4 fL (9.4-12.4); Monocytes # (auto) 1.02 K/uL (0.11-0.59); Monocytes % (auto) 11.3 %; Neutrophils # (auto) 5.83 K/uL (1.40-6.50); Neutrophils % (auto) 64.5 %; Platelet Count 321 K/uL (130-400); RDW Coefficient of Variation 13.8 % (11.5-14.5); RDW Standard Deviation 46.8 fL (36.4-46.3); Red Blood Count 4.53 M/uL (4.20-5.40); White Blood Count 9.05 K/ul (4.8-10.8)
[2023-09-03 06:15] LABS: BUN Creatinine Ratio 37.2 (10-20); Calcium 8.5 mg/dl (8.6-10.3); Creatinine Clr Calc Pharmacy 79.8 ml/min; Est GFR (African American) 91.2 ml/min; Est GFR (Non-African American) 78.7 ml/min; Potassium 3.8 mmol/L (3.5-5.1)
[2023-09-03] MEDS ORDERED: diphenhydrAMINE 50 MG/ML VIAL IV STA (07:37)
[2023-09-03] MEDS: FERROUS SULFATE 325 MG TAB PO SCH ×3 (08:42→17:42)
[2023-09-03] MEDS: FAMOTIDINE 20 MG TAB PO SCH ×2 (08:42→19:57)
[2023-09-03] MEDS: PANTOprazole 40 MG TAB PO SCH (08:42)
[2023-09-03] MEDS: FLUTICASONE/VILANTEROL 100/25MCG 14 PUFFS/INHALER INH SCH (08:42)
[2023-09-03] MEDS: FUROSEMIDE 40 MG TAB PO SCH (08:42)
[2023-09-03] MEDS: TRIAMCINOLONE ACET 0.1% OINT 15 GM TUBE EXT SCH ×2 (10:42→19:57)
[2023-09-03] MEDS: cefTRIAXone SODIUM 2,000 MG in DEXTROSE 5 % MINI-B 50 ML IV SCH (12:09)
--- NOTE | 2023-09-03 12:40 | Hospitalist Progress Note ---
Date of Service September 03, 2023 Assessment & Plan (1) Surgical site infection: (2) Pulmonary fibrosis: (3) Hx pulmonary embolism: (4) History of DVT (deep vein thrombosis): (5) [facility] (current) use of anticoagulants: (6) Hypothyroidism: Plan Ms. Mendez is a 68 year old woman with past medical history of DVT/PE on xarelto, pulmonary fibrosis c/b fungal pneumona (Dr Bernal), hypothyroidism, RLS and JANINE who is s/p Right Total Knee Arthroplasty on 08/09/23 under the care of Dr. Johnston. Patient admitted on 09/01 due to concern for surgical site infection. Patient's bette removed on Monday 08/28. On Thursday 08/31, patient noted feeling down with her physical therapy exercises and some increased soreness. She noted redness and discharge from surgical site. Patient started on Vanc, CTX. Vanc discontiued, Dapto added. Ortho on consult, suspects likely superficial infection at this time. Plan is to continue IV antibiotics and monitor clinical response for another 24 hours. If notable improvement, potential for discharge on PO regimen with close OP follow up. If still concerned, Ortho will plan washout. #SSTI/ Surgical site infection #s/p right RKA Right Total Knee Arthroplasty on 08/09/23 under the care of Dr. Johnston Bette removed as OPT on Monday 08/28, appeared infectious 08/30 Follow up infectious work up -No wound culture as will only capture skin santhosh -Continue Rocephin, switch Daptomycin to Doxycycline for suspected drug reaction -Blood cultures NGTD -Ortho following appreciate recommendations -Per Ortho, ok to continue Xarelto for now #Suspected Drug eruption pt with maculopapular itchy rash to back, neck, anterior thorax only new medications are Daptomycin and rocephin She has tolerated Cephalosporins in past, specifically took 10 days of oral antibiotics after d/c from hospital s/p TKA possibly related to Dapto, will switch to IV Doxy + Rocephin #Prior DVT/PE: #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 Bernal; last appt 07/11/23 Takes Zithromax three times weekly;continue Takes Lasix; continue #JANINE: Chronic Uses Symbicort and Albuterol PRN; cont Wears CPAP at home; will order CPAP while here at [facility] Disposition: PCP: Candie Rey PA-C Code Status: Full Code VTE Prophylaxis: On Xarelto Await ortho recs in terms of D/C vs intra op wash out Pt was seen and examined in collaboration with Dr. Jacobs, please see addendum A total of 45 minutes was spent coordinating, documenting, and providing care for this patient excluding time spent in the performance of separately billed services. This included personally viewing all current laboratories and imaging studies, medication reconciliation, outpatient chart review, and discussion with specialists. Admission and Anticipated Discharge Date Admission Date: September 01, 2023 Supervising Physician Co-Signing Physician Notes I have seen and discussed the case with the collaborating TONIE. I agree with the above PN. I have reviewed and confirmed the patients medical history, the findings on physical examination, and the patients diagnosis and treatment plan with Umm SCHILLING and agree with the information documented. In short, Ms. Mendez is 68 year old woman with recent knee replacement with concern for superficial infection. Appears patient has a drug eruption with prior tolerance to cephalosporins historically. Physical exam revealed maculopapular rash torso/chest. Plan to discontinue dapto, transition to doxy. CTM. Rest of plan as above Subjective Patient was seen and examined in 322. Follow-up right superficial TKA infection. 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 She has never experienced before. C/o itching, not painful. States ortho was in to see her and will re eval her this afternoon. She was discharged on antibiotics after TKA and didn't have reaction. She denies f/c/s, chest pain, sob, n/v/d. She is tolerating diet and moved bowels yesterday. Review of Systems Review of Systems: All systems reviewed & are unremarkable except as noted in HPI & below Physical Exam Physical Exam: Gen: WD/WN, NAD, A&O x3 HEENT: Normocephalic, atraumatic, conjunctivae moist, sclerae anicteric, mucous membranes moist. Lung: Clear to Auscultation bilaterally, no wheezes/rales/rhonchi Heart: Regular rate, regular rhythm, no murmurs, rubs, or gallops Abdomen: Soft, NT, ND +BS x 4 Extremities: R knee zen wrap in place, NVI distally Skin: Warm, erythematous maculopapular rash to back/upper thorax, negative turgor. Constitutional: WD/WN, vitals as above Respiratory: normal respiratory effort, lungs clear to auscultation Cardiovascular: RRR, no murmur, no edema Results & Data Results & Data Vital Signs (Past 12 Hours) Vital Signs Temp Pulse Resp BP Pulse Ox O2 Del Method 09/03/23 07:24 36.3 C L 71 18 125/79 94 Room Air Laboratory Results I have independently reviewed and interpreted patient's admitting labs including CBC, BMP, Mag, Phos Medications Administered Current Inpatient Medications Acetaminophen (Acetaminophen 325 Mg Tab) 650 mg PO Q4H PRN PRN Reason: pain/fever Stop: 10/01/23 13:18 Last Admin: 09/03/23 02:52 Dose: 650 mg Al Hydrox/Mg Hydrox/Simethicone (Aluminum/Magnesium Susp 30 Ml Udc) 30 ml PO Q6H PRN PRN Reason: Dyspepsia Stop: 10/01/23 13:18 Albuterol (Albuterol Hfa 8 Gm Inhaler) 2 puffs INH Q6H PRN PRN Reason: prn Stop: 10/01/23 14:14 Albuterol (Albut/Ipratrop 3mg/0.5mg Neb 3 Ml Vial) 3 ml INH Q6H PRN; Protocol PRN Reason: prn Stop: 10/01/23 14:14 Famotidine (Famotidine 20 Mg Tab) 20 mg PO BID MIROSLAVA Stop: 10/01/23 20:59 Last Admin: 09/03/23 08:42 Dose: 20 mg Ferrous Sulfate (Ferrous Sulfate 325 Mg Tab) 325 mg PO TIDM MIROSLAVA Stop: 10/01/23 16:59 Last Admin: 09/03/23 11:47 Dose: 325 mg Fluticasone/Vilanterol (Fluticasone/Vilanterol 100/25mcg 14 Puffs/Inhaler) 1 puffs INH DAILY MIROSLAVA Stop: 10/02/23 08:59 Last Admin: 09/03/23 08:42 Dose: 1 puffs Furosemide (Furosemide 40 Mg Tab) 40 mg PO QAM [facility] Stop: 10/02/23 08:59 Last Admin: 09/03/23 08:42 Dose: 40 mg Ceftriaxone Sodium 2,000 mg/ (Dextrose) 50 mls @ 100 mls/hr IV Q24H [facility]; Protocol Stop: 09/09/23 11:59 Last Admin: 09/03/23 12:09 Dose: 30 mls/hr Daptomycin 425 mg/ Syringe 8.5 mls @ 0 mls/min IV Q24H [facility]; Protocol Stop: 09/08/23 17:59 Last Admin: 09/02/23 17:01 Dose: 2 mls/min Lactic Acid (Ammonium Lactate 12% Lotion 225 Gm Btl) 1 gm EXT TID [facility] Stop: 10/03/23 13:59 Levothyroxine Sodium (Levothyroxine Sodium 50 Mcg Tablet) 50 mcg PO DAILYBB [facility] Stop: 10/02/23 06:29 Last Admin: 09/03/23 02:52 Dose: 50 mcg Magnesium Hydroxide (Magnesium Hydroxide Susp 30 Ml Udc) 30 ml PO Q6H PRN PRN Reason: Constipation Stop: 10/01/23 13:18 Ondansetron HCl (Ondansetron Inj 2 Mg/Ml 2 Ml Vial) 4 mg IV Q6H PRN PRN Reason: Nausea Stop: 10/01/23 13:18 Pantoprazole Sodium (Pantoprazole 40 Mg Tab) 40 mg PO QAM [facility] Stop: 10/02/23 08:59 Last Admin: 09/03/23 08:42 Dose: 40 mg Polyethylene Glycol (Polyethylene (Miralax) 17 Gm Pack) 17 gm PO DAILY PRN PRN Reason: Constipation Stop: 10/01/23 13:18 Pregabalin (Pregabalin 100 Mg Cap) 100 mg PO HS [facility] Stop: 10/01/23 20:59 Last Admin: 09/02/23 20:11 Dose: 100 mg Rivaroxaban (Rivaroxaban 10 Mg Tablet) 10 mg PO QPM [facility] Stop: 10/01/23 20:59 Last Admin: 09/02/23 20:12 Dose: 10 mg Triamcinolone Acetonide (Triamcinolone Acet 0.1% Oint 15 Gm Tube) 1 appln EXT BID [facility] Stop: 10/03/23 09:44 Last Admin: 09/03/23 10:42 Dose: 1 appln
--- NOTE | 2023-09-03 14:13 | Orthopedic Progress Note ---
<Statement entered by Amilcar Johnston, DO - 09/03/23 17:27> I, Dr. Amilcar Johnston, saw and examined Shraddha this morning. The surgical site infection seems mostly superficial. I did express a very small amount of purulent discharge but it was mostly a little bit of bloody drainage. She has a little bit of cellulitis around her incision as well. She has good motion of the knee. She has been walking up and down the hallways without any pain. I do not think that there is a deep surgical infection. At this point I do not see any areas of abscess or fluid collection that would warrant going to the operating room. We will keep her in the hospital on IV antibiotics for 1 more day. Tomorrow I will see her in the morning. If she is doing well then we can possibly discharge her to home on oral antibiotics. Date of Service September 03, 2023 Assessment & Plan (1) Surgical site infection: At this point, it was discussed with Dr. Johnston that this patient can still be treated with IV antibiotics at this point. It does appear that this is a superficial infection compared to a deep-seated hardware infection. Continue with ceftriaxone and daptomycin. Will continue to monitor. Subjective . Shraddha was resting comfortably today in bed in no apparent distress. She was seen and evaluated this morning by Dr. Johnston as well. She notes that she really has no pain to the right knee. She notes that the discharge that was exp ressed yesterday was a lot less today. She is still on ceftriaxone and daptomycin for coverage. No other concerns today. Review of Systems All systems reviewed & are unremarkable except as noted in HPI & below. Physical Exam . On examination of the right knee, the erythema is all located around the superior incision site. There does not seem to be any deep infection within the knee. There is no significant effusion. Unable to flex at about 90 degrees without much pain. There is not much drainage from the incision but when pushed, very mild bloody tinged mildly purulent fluid came out when compared to yesterday. Dressings are clean, dry, intact. Results & Data Results & Data Laboratory Results . Abnormal lab results 09/03/23 Range/Units 05:24 RDW Std Deviation 46.8 H (36.4-46.3) fL [place] # (Auto) 1.02 H (0.11-0.59) K/uL BUN 29 H (6-23) mg/dl BUN/Creatinine Ratio 37.2 H (10-20) Glucose 108 H (70-99(Fasting)) mg/dl Calcium 8.5 L (8.6-10.3) mg/dl Diagnostic Findings . PG Care Time/CCT Total # of Minutes Spent Total Time Spent with Patient: Total time spent is greater than 50% in coordination of care (as documented) at patient's floor/unit and/or counseling patient: Coding Level of Care Code 29261 Post Operative Follow-Up Diagnoses Surgical site infection T81.49XA
[2023-09-03] MEDS: AMMONIUM LACTATE 12% LOTION 225 GM BTL EXT SCH ×2 (15:37→19:57)
[2023-09-03] MEDS: DOXYCYCLINE HYCLATE 100 MG in DEXTROSE 5% MINI-B 100 ML IV SCH (15:37)
[2023-09-03 15:58] VITALS: RESP 16
[2023-09-03] MEDS: PREGABALIN 100 MG CAP PO SCH (19:57)
[2023-09-03] MEDS: RIVAROXABAN 10 MG TABLET PO SCH (19:57)
[2023-09-04] MEDS: DOXYCYCLINE HYCLATE 100 MG in DEXTROSE 5% MINI-B 100 ML IV SCH (01:56)
[2023-09-04] MEDS: LEVOTHYROXINE SODIUM 50 MCG TABLET PO SCH (06:15)
[2023-09-04 06:19] LABS: Basophils # (auto) 0.02 K/uL (0.00-0.20); Basophils % (auto) 0.2 %; Eosinophils # (auto) 0.59 K/uL (0.00-0.50); Eosinophils % (auto) 6.9 %; Hematocrit (blood only) 42.4 % (37.0-47.0); Hemoglobin 13.6 g/dl (12.0-16.0); Immature Granulocytes # (auto) 0.05 K/uL (0.01-0.20); Immature Granulocytes % (auto) 0.6 %; Lymphocytes # (auto) 1.34 K/uL (1.20-3.40); Lymphocytes % (auto) 15.7 %; Mean Corpuscular Hemoglobin 29.4 pg (25.0-34.0); Mean Corpuscular Hgb Conc 32.1 g/dL (32.0-36.0); Mean Corpuscular Volume 91.6 fL (80.0-100.0); Mean Platelet Volume 9.2 fL (9.4-12.4); Monocytes % (auto) 11.7 %; Neutrophils # (auto) 5.52 K/uL (1.40-6.50); Neutrophils % (auto) 64.9 %; Platelet Count 291 K/uL (130-400); RDW Coefficient of Variation 13.7 % (11.5-14.5); RDW Standard Deviation 46.7 fL (36.4-46.3); Red Blood Count 4.63 M/uL (4.20-5.40); White Blood Count 8.52 K/ul (4.8-10.8)
[2023-09-04 07:00] LABS: BUN Creatinine Ratio 35.8 (10-20); Calcium 8.9 mg/dl (8.6-10.3); Creatinine Clr Calc Pharmacy 76.8 ml/min; Est GFR (African American) 87.1 ml/min; Est GFR (Non-African American) 75.2 ml/min; Magnesium 1.9 mg/dl (1.7-2.4); Potassium 3.7 mmol/L (3.5-5.1)
[2023-09-04] MEDS: FUROSEMIDE 40 MG TAB PO SCH (09:05)
[2023-09-04] MEDS: FAMOTIDINE 20 MG TAB PO SCH ×2 (09:05→20:10)
[2023-09-04] MEDS: FLUTICASONE/VILANTEROL 100/25MCG 14 PUFFS/INHALER INH SCH (09:05)
[2023-09-04] MEDS: FERROUS SULFATE 325 MG TAB PO SCH ×3 (09:05→17:39)
[2023-09-04] MEDS: PANTOprazole 40 MG TAB PO SCH (09:05)
[2023-09-04] MEDS: AMMONIUM LACTATE 12% LOTION 225 GM BTL EXT SCH ×3 (09:06→20:09)
[2023-09-04] MEDS: TRIAMCINOLONE ACET 0.1% OINT 15 GM TUBE EXT SCH ×2 (09:06→20:10)
--- NOTE | 2023-09-04 10:21 | Orthopedic Progress Note ---
Date of Service September 04, 2023 Assessment & Plan (1) Surgical site infection: At this point, it was discussed with Dr. Johnston that this patient from an orthopedic standpoint can be switched to oral antibiotics and be discharged home at this point. It does appear that this is a superficial infection compared to a deep-seated hardware infection. Continue with ceftriaxone and daptomycin while in the hospital. Medical management per primary. Will continue to monitor. Subjective . Shraddha was resting comfortably today in bed in no apparent distress. She was seen and evaluated this morning by Dr. Johnston as well. She notes that she really has no pain to the right knee. She notes that she has not noticed any discharge and when Dr. Johnston tried to express any discharge this morning, he was unable too. She really had no pain to the right knee and has been walking up and down the hallways with no issues.. She is still on ceftriaxone and doxycycline for coverage. No other concerns today. Review of Systems All systems reviewed & are unremarkable except as noted in HPI & below. Physical Exam .On examination of the right knee, the erythema is all located around the superior incision site. There does not seem to be any deep infection within the knee. There is no significant effusion. Able to flex at about 90 degrees without much pain. There is not much drainage from the incision. Dressings are clean, dry, intact. Results & Data Results & Data Laboratory Results . Diagnostic Findings . PG Care Time/CCT Total # of Minutes Spent Total Time Spent with Patient: Total time spent is greater than 50% in coordination of care (as documented) at patient's floor/unit and/or counseling patient: Coding Level of Care Code 26798 Post Operative Follow-Up Diagnoses Surgical site infection T81.49XA
[2023-09-04] MEDS: cefTRIAXone SODIUM 2,000 MG in DEXTROSE 5 % MINI-B 50 ML IV SCH (12:25)
--- NOTE | 2023-09-04 12:49 | Hospitalist Progress Note ---
Date of Service September 04, 2023 Assessment & Plan (1) Surgical site infection: (2) Pulmonary fibrosis: (3) Hx pulmonary embolism: (4) History of DVT (deep vein thrombosis): (5) snf (current) use of anticoagulants: (6) Hypothyroidism: Plan Ms. Mendez is a 68 year old woman with past medical history of DVT/PE on xarelto, pulmonary fibrosis c/b fungal pneumona (Dr Bernal), hypothyroidism, RLS and JANINE who is s/p Right Total Knee Arthroplasty on 08/09/23 under the care of Dr. Johnston. Patient admitted on 09/01 due to concern for surgical site infection. Patient's bette removed on Monday 08/28. On Thursday 08/31, patient noted feeling down with her physical therapy exercises and some increased soreness. She noted redness and discharge from surgical site. Patient started on Vanc, CTX. Vanc discontiued, Dapto added. Ortho on consult, suspects likely superficial infection at this time. Plan is to continue IV antibiotics and monitor clinical response for another 24 hours. If notable improvement, potential for discharge on PO regimen with close OP follow up. If still concerned, Ortho will plan washout. #SSTI/ Surgical site infection #s/p right RKA Right Total Knee Arthroplasty on 08/09/23 under the care of Dr. Johnston Bette removed as OPT on Monday 08/28, appeared infectious 08/30 Follow up infectious work up -No wound culture as will only capture skin santhosh -Continue Rocephin, switch Daptomycin to Doxycycline for suspected drug reaction on 09/03 -Blood cultures NGTD -Erythema worsening on 09/04, will switch Doxy to IV Zyvox for better MRSA coverage, continue IV Rocephin -Drug Rash from Dapto much improved -consult infectious disease for antibiotic management and oral antibiotic recommendations for discharge in the next 1-2 days -Discussed with Dr. Johnston - no current indication for wash out, we both feel infection superficial, pt ambulating well w/o pain -Per Ortho, ok to continue Xarelto for now -Encourage patient to drink fluids, also adding senna s for bowel regimen #Suspected Drug eruption pt with maculopapular itchy rash to back, neck, anterior thorax only new medications are Daptomycin and rocephin She has tolerated Cephalosporins in past, specifically took 10 days of oral antibiotics after d/c from hospital s/p TKA possibly related to Dapto Rash has resolved with removing Dapto #Prior DVT/PE: #snf use of anticoagulants: Chronic DVT 2014, PE 2020 provoked secondary to Covid Takes Xarelto;continue for now #Hypothyroidism: Chronic Takes Levothyroxine;continue #RLS: Chronic Takes Lyrica; continue #Pulmonary Fibrosis: Chronic history of fungal PNA; follows with Dr. Bernal; last appt 07/11/23 Takes Zithromax three times weekly;continue Takes Lasix; continue #JANINE: Chronic Uses Symbicort and Albuterol PRN; cont Wears CPAP at home; will order CPAP while here at [facility] Disposition: PCP: Candie Rey PA-C Code Status: Full Code VTE Prophylaxis: On Xarelto Pt not yet medically stable for discharge, continued need for IV antibiotics, awaiting ID input Pt was seen and examined in collaboration with Dr. Jacobs, please see addendum A total of 51 minutes was spent coordinating, documenting, and providing care for this patient excluding time spent in the performance of separately billed services. This included personally viewing all current laboratories and imaging studies, medication reconciliation, outpatient chart review, and discussion with specialists. CBC, BMP ordered for a.m. Admission and Anticipated Discharge Date Admission Date: September 01, 2023 Supervising Physician Co-Signing Physician Notes I have seen and discussed the case with the collaborating TONIE. I agree with the above PN. I have reviewed and confirmed the patients medical history, the findings on physical examination, and the patients diagnosis and treatment plan with Umm SCHILLING and agree with the information documented. In short, Ms. Mendez is 68 year old woman with recent knee replacement with concern for superficial infection. Appears patient has a drug eruption with prior tolerance to cephalosporins historically. Physical exam revealed maculopapular rash torso/chest, still present at this time, but not bothersome per patient. Vertical incision with dehiscence present,minimal drainage, no odor, surround erythema not improved since admission. Plan to discontinue doxy +linezolid for better MRSA. ID for better abx and duration of treatment. CTM. Rest of plan as above Subjective Patient was seen and examined in 322. Follow-up right superficial TKA infection. NAEO He rash has resolved and improved. She is ambulating around the room w/o significant pain. She feels her redness is worse today, but denies drainage. She denies f/c/s, chest pain, sob, n/v/d. No BM in 2-3 days. She is passing flatus. Review of Systems Review of Systems: All systems reviewed & are unremarkable except as noted in HPI & below Physical Exam Physical Exam: Gen: WD/WN, NAD, A&O x3 HEENT: Normocephalic, atraumatic, conjunctivae moist, sclerae anicteric, mucous membranes moist. Lung: Clear to Auscultation bilaterally, no wheezes/rales/rhonchi Heart: Regular rate, regular rhythm, no murmurs, rubs, or gallops Abdomen: Soft, NT, ND +BS x 4 Extremities: R knee zen wrap in place, NVI distally, wrap removed which revealed R knee incision with central wound, no namita purulent drainage, erythema and warmth to knee Skin: Warm, erythematous maculopapular rash to back/upper thorax, negative turgor. Results & Data Results & Data Vital Signs (Past 12 Hours) Vital Signs Temp Pulse Resp BP Pulse Ox O2 Del Method 09/04/23 07:29 36.8 C 76 16 138/86 95 Room Air Laboratory Results Short CBC 09/04/23 Range/Units 06:00 WBC 8.52 (4.8-10.8) K/ul Hgb 13.6 (12.0-16.0) g/dl Hct 42.4 (37.0-47.0) % Plt Count 291 (130-400) K/uL BMP 09/04/23 06:00 Sodium 137 Potassium 3.7 Chloride 103 Carbon Dioxide 27 BUN 29 H Creatinine 0.81 Glucose 104 H Calcium 8.9 I have independently reviewed and interpreted patient's labs including CBC, bmp, mag Medications Administered Current Inpatient Medications Acetaminophen (Acetaminophen 325 Mg Tab) 650 mg PO Q4H PRN PRN Reason: pain/fever Stop: 10/01/23 13:18 Last Admin: 09/03/23 02:52 Dose: 650 mg Al Hydrox/Mg Hydrox/Simethicone (Aluminum/Magnesium Susp 30 Ml Udc) 30 ml PO Q6H PRN PRN Reason: Dyspepsia Stop: 10/01/23 13:18 Albuterol (Albuterol Hfa 8 Gm Inhaler) 2 puffs INH Q6H PRN PRN Reason: prn Stop: 10/01/23 14:14 Albuterol (Albut/Ipratrop 3mg/0.5mg Neb 3 Ml Vial) 3 ml INH Q6H PRN; Protocol PRN Reason: prn Stop: 10/01/23 14:14 Famotidine (Famotidine 20 Mg Tab) 20 mg PO BID [facility] Stop: 10/01/23 20:59 Last Admin: 09/04/23 09:05 Dose: 20 mg Ferrous Sulfate (Ferrous Sulfate 325 Mg Tab) 325 mg PO TIDM [facility] Stop: 10/01/23 16:59 Last Admin: 09/04/23 09:05 Dose: 325 mg Fluticasone/Vilanterol (Fluticasone/Vilanterol 100/25mcg 14 Puffs/Inhaler) 1 puffs INH DAILY [facility] Stop: 10/02/23 08:59 Last Admin: 09/04/23 09:05 Dose: 1 puffs Furosemide (Furosemide 40 Mg Tab) 40 mg PO QAM [facility] Stop: 10/02/23 08:59 Last Admin: 09/04/23 09:05 Dose: 40 mg Ceftriaxone Sodium 2,000 mg/ (Dextrose) 50 mls @ 100 mls/hr IV Q24H [facility]; Protocol Stop: 09/09/23 11:59 Last Admin: 09/04/23 12:25 Dose: 100 mls/hr Linezolid (Zyvox) 600 mg in 300 mls @ 300 mls/hr IV Q12H [facility] Stop: 09/11/23 11:14 Lactic Acid (Ammonium Lactate 12% Lotion 225 Gm Btl) 1 gm EXT TID [facility] Stop: 10/03/23 13:59 Last Admin: 09/04/23 09:06 Dose: 1 gm Levothyroxine Sodium (Levothyroxine Sodium 50 Mcg Tablet) 50 mcg PO DAILYBB [facility] Stop: 10/02/23 06:29 Last Admin: 09/04/23 06:15 Dose: 50 mcg Magnesium Hydroxide (Magnesium Hydroxide Susp 30 Ml Udc) 30 ml PO Q6H PRN PRN Reason: Constipation Stop: 10/01/23 13:18 Ondansetron HCl (Ondansetron Inj 2 Mg/Ml 2 Ml Vial) 4 mg IV Q6H PRN PRN Reason: Nausea Stop: 10/01/23 13:18 Pantoprazole Sodium (Pantoprazole 40 Mg Tab) 40 mg PO QAM [facility] Stop: 10/02/23 08:59 Last Admin: 09/04/23 09:05 Dose: 40 mg Polyethylene Glycol (Polyethylene (Miralax) 17 Gm Pack) 17 gm PO DAILY PRN PRN Reason: Constipation Stop: 10/01/23 13:18 Pregabalin (Pregabalin 100 Mg Cap) 100 mg PO HS [facility] Stop: 10/01/23 20:59 Last Admin: 09/03/23 19:57 Dose: 100 mg Rivaroxaban (Rivaroxaban 10 Mg Tablet) 10 mg PO QPM [facility] Stop: 10/01/23 20:59 Last Admin: 09/03/23 19:57 Dose: 10 mg Senna/Docusate Sodium (Docusate Sodium/Senna 50/8.6mg Tab) 1 tab PO QAM [facility] Stop: 10/04/23 12:59 Triamcinolone Acetonide (Triamcinolone Acet 0.1% Oint 15 Gm Tube) 1 appln EXT BID [facility] Stop: 10/03/23 09:44 Last Admin: 09/04/23 09:06 Dose: 1 appln
[2023-09-04] MEDS: LINEZOLID 600 MG/300 ML BAG IV SCH ×2 (13:02→23:23)
[2023-09-04] MEDS: DOCUSATE SODIUM/SENNA 50/8.6MG TAB PO SCH (13:08)
[2023-09-04] MEDS: PREGABALIN 100 MG CAP PO SCH (20:09)
[2023-09-04] MEDS: RIVAROXABAN 10 MG TABLET PO SCH (20:10)
[2023-09-05] MEDS: LEVOTHYROXINE SODIUM 50 MCG TABLET PO SCH (05:21)
[2023-09-05 06:47] LABS: Basophils # (auto) 0.03 K/uL (0.00-0.20); Basophils % (auto) 0.3 %; Eosinophils # (auto) 0.82 K/uL (0.00-0.50); Eosinophils % (auto) 8.7 %; Hematocrit (blood only) 39.3 % (37.0-47.0); Hemoglobin 13.1 g/dl (12.0-16.0); Immature Granulocytes # (auto) 0.04 K/uL (0.01-0.20); Immature Granulocytes % (auto) 0.4 %; Lymphocytes # (auto) 1.43 K/uL (1.20-3.40); Lymphocytes % (auto) 15.2 %; Mean Corpuscular Hemoglobin 29.6 pg (25.0-34.0); Mean Corpuscular Hgb Conc 33.3 g/dL (32.0-36.0); Mean Corpuscular Volume 88.9 fL (80.0-100.0); Mean Platelet Volume 9.8 fL (9.4-12.4); Monocytes % (auto) 10.6 %; Neutrophils % (auto) 64.8 %; Platelet Count 295 K/uL (130-400); RDW Coefficient of Variation 13.4 % (11.5-14.5); RDW Standard Deviation 43.7 fL (36.4-46.3); Red Blood Count 4.42 M/uL (4.20-5.40); White Blood Count 9.42 K/ul (4.8-10.8)
[2023-09-05 07:07] LABS: Calcium 8.9 mg/dl (8.6-10.3); Potassium 3.3 mmol/L (3.5-5.1)
[2023-09-05 07:12] LABS: BUN Creatinine Ratio 28.7 (10-20); Creatinine Clr Calc Pharmacy 71.5 ml/min; Est GFR (African American) 79.9 ml/min; Est GFR (Non-African American) 68.9 ml/min
[2023-09-05] MEDS ORDERED: POTASSIUM CHLORIDE CRTAB 20 MEQ TABCR PO STA (07:24)
[2023-09-05 07:43] VITALS: BP 131/82; PULSE 70; TEMP 97.7; O2SAT 93
[2023-09-05] MEDS: FAMOTIDINE 20 MG TAB PO SCH (08:32)
[2023-09-05] MEDS: AMMONIUM LACTATE 12% LOTION 225 GM BTL EXT SCH ×2 (08:32→14:21)
[2023-09-05] MEDS: FUROSEMIDE 40 MG TAB PO SCH (08:32)
[2023-09-05] MEDS: FLUTICASONE/VILANTEROL 100/25MCG 14 PUFFS/INHALER INH SCH (08:32)
[2023-09-05] MEDS: DOCUSATE SODIUM/SENNA 50/8.6MG TAB PO SCH (08:32)
[2023-09-05] MEDS: TRIAMCINOLONE ACET 0.1% OINT 15 GM TUBE EXT SCH (08:32)
[2023-09-05] MEDS: PANTOprazole 40 MG TAB PO SCH (08:33)
[2023-09-05] MEDS: FERROUS SULFATE 325 MG TAB PO SCH ×2 (08:33→12:20)
[2023-09-05] MEDS: cefTRIAXone SODIUM 2,000 MG in DEXTROSE 5 % MINI-B 50 ML IV SCH (12:20)
--- NOTE | 2023-09-05 12:30 | Infectious Disease Consult ---
Date of Service September 05, 2023 Telehealth Information I performed this visit using a real-time telehealth connection between my location and the patients location ([facility]). After connecting through interactive tele-video, patient was identified by name and date of and/or wristband check.Patient (or authorized healthcare fraud representative) was informed that this was a telemedicine visit and it was being conducted confidentially over secure lines. My office door was closed and no one else was present in the room with me.Patient (or authorized healthcare fraud representative) provided consent to proceed with the visit, expressed an understanding of privacy and security of the telemedicine visit, and gave permission to have a hospital fraud representative in the room in order to assist with the visit and to conduct portions of the visit, as needed. I informed the patient (or authorized healthcare fraud representative) that I reviewed their record and presented the opportunity for them to ask any questions regarding the visit today. The patient agreed to participate. Assessment & Plan (1) Surgical site infection: (2) Cellulitis: (3) Status post right knee replacement: Plan Patient with recent R TKA 08/09/23. Following surgery she had emy present which were removed 08/28. After staple removal she developed redness and drainage consistent with SSI. She has been evaluated by ortho who feels the infection is superficial and not involving hardware. She has been receiving CTX and multiple different gram positive medications. Currently on CTX and linezolid and consistently improving. It is difficult to confidently rule out deep infection at this time. Patient would benefit from arthrocentesis to rule out join infection. If her symptoms worsen would recommend re-evaluation by ortho. Can dc on cipro 500 BID and linezolid 600 BID to complete 10-14 days if treating for skin and soft tissue infection. Recommend short term follow up with ortho following discharge. Patient is at risk for treatment failure as PJI remains possible. ATTESTATION: I saw and evaluated the patient today. I have reviewed the trainee note and agree. My additional thoughts/findingsor any changes to the planare listed below. The fellow's choice of ABX is not incorrect - as we do not have cultures to guide us. However, my concern is that we may me masking a PJI. I attempted to discuss the case with the patient's Orthopedic Surgeon but unfortunately the patient was discharged prior to this discussion. These recommendations are not final. ID coverage changes frequently. Use the on- call schedule to find out who is covering your facility. Then, contact ID for updated recommendations. History of Present Illness History of Present Illness Patient will be admitted for further evaluation and management. Please see A/P for further details. Patient underwent R TKA on 08/09/23. Per H&P emy were removed 08/28. Following removal the site became erythematous with greenish discharge. Patient was started on vancomycin and ceftriaxone in the ED. She otherwise appeared well with no fever or leukocytosis. She has been seen by ortho who feels that her infection is superficial and not deep seated. She continues to improve and now drainage is minimal. She is currently receiving linezolid and ceftriaxone.She has been afebrile. Ortho is recommending discharge with oral antibiotics. No plans for washout at this time. Allergies Allergy/AdvReac Type Severity Reaction Status Date / Time enoxaparin [From Lovenox] Allergy Severe Rash Verified 08/09/23 09:30 daptomycin Allergy Mild rash Verified 09/04/23 11:05 Iodinated Contrast Media Allergy Itching Verified 09/03/23 10:00 Home Medications Medication Instructions Recorded Confirmed Type acetaminophen 325 mg capsule 325 mg PO QID PRN prn 05/16/23 09/01/23 History albuterol sulfate 90 mcg/actuation 2 puff inhalation Q6H PRN prn 05/16/23 09/01/23 History aerosol inhaler (Ventolin HFA) ascorbic acid (vitamin C) 500 mg 500 mg PO TID 05/16/23 09/01/23 History capsule budesonide-formoterol HFA 80 2 puff inhalation BID 05/16/23 09/01/23 History mcg-4.5 mcg/actuation aerosol inhaler (Symbicort) famotidine 20 mg tablet 20 mg PO BID 05/16/23 09/01/23 History ferrous sulfate 325 mg (65 mg 325 mg PO TID 05/16/23 09/01/23 History iron) tablet furosemide 20 mg tablet 40 mg PO QAM 05/16/23 09/01/23 History ipratropium 0.5 mg-albuterol 3 mg 3 ml inhalation Q6H PRN prn 05/16/23 09/01/23 History (2.5 mg base)/3 mL nebulization soln levothyroxine 50 mcg capsule 50 mcg PO QAM 05/16/23 09/01/23 History omeprazole 20 mg capsule,delayed 20 mg PO QAM 05/16/23 09/01/23 History release pregabalin 50 mg capsule 100 mg PO HS 05/16/23 09/01/23 History rivaroxaban 10 mg tablet (Xarelto) 10 mg PO QPM 05/16/23 09/01/23 History psyllium husk 1 tbsp PO DAILY 07/16/23 09/01/23 History oxycodone 5 mg tablet 5 mg PO Q6 PRN pain #30 tabs 08/10/23 09/01/23 Rx Saccharomyces boulardii 250 mg 250 mg PO DAILY #14 caps 09/05/23 Rx capsule (Florastor) ammonium lactate 5 % lotion 1 applic EXT TID #226 grams 09/05/23 Rx (Lac-Hydrin Five) ciprofloxacin HCl 500 mg tablet 500 mg PO BID #22 tabs 09/05/23 Rx linezolid 600 mg tablet (Zyvox) 600 mg PO BID 11 days #22 tabs 09/05/23 Rx triamcinolone acetonide 0.1 % 1 applic EXT BID rash #15 grams 09/05/23 Rx topical ointment Patient History Medical History Surgical site infection History of DVT (deep vein thrombosis) 2015- provoked 2020- s/p Covid infection Hiatal hernia Pulmonary hypertension Estimated PASP is 58 mmHg per 2020 ECHO Hypothyroidism care home (current) use of anticoagulants Hx pulmonary embolism 2020 after COVID diagnosis GI bleed 2021, saw Gastro at the time and was cleared, no longer seeing Atrial fibrillation one occurrence 5 years ago, 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, 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 Sleep apnea CPAP 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- [facility], last seen 07/11/2023, takes Zithromax 3 times a week History of fungal pneumonia bilateral, 2018 History of COVID-19 2020, hospitalized [facility], PE and DVT, resolved Surgical History History of colonoscopy History of bronchoscopy Social History Smoking Status: Never smoker Second Hand Exposure: No; Do You Dip or Chew Tobacco: No; Hx Alcohol Use: No Hx Substance Use: No Preferred Language: [place] Communication Ability: Effective Gate Tender Required: No Beliefs That Will Affect Care: None Current Living Situation: Alone Current Living Situation Comment: Alone in own home Feels Safe at Home: Yes Assistive Devices: Walker Review of Systems Full ROS was performed and is negative unless mentioned in the HPI. Physical Exam Patient was evaluated by telemedicine. Complete physical not performed Results & Data Vital Signs (Past 12 Hours) Vital Signs Temp Pulse Resp BP Pulse Ox O2 Del Method 09/05/23 07:43 36.5 C 70 16 131/82 93 Room Air Laboratory Results Microbiology 09/01/23 12:18 Blood Aerobic Blood Culture - Preliminary No growth in Aerobic bottle after 48 hours. 09/01/23 12:18 Blood Anaerobic Blood Culture - Preliminary No growth in Anaerobic bottle after 48 hours. 09/01/23 12:15 Blood Aerobic Blood Culture - Preliminary No growth in Aerobic bottle after 48 hours. 09/01/23 12:15 Blood Anaerobic Blood Culture - Final Laboratory Results - last 72 hr 09/03/23 09/04/23 09/05/23 05:24 06:00 05:29 WBC 9.05 8.52 9.42 RBC 4.53 4.63 4.42 Hgb 13.4 13.6 13.1 Hct 41.4 42.4 39.3 MCV 91.4 91.6 88.9 MCH 29.6 29.4 29.6 MCHC 32.4 32.1 33.3 RDW Std Deviation 46.8 H 46.7 H 43.7 RDW Coeff of Arelis 13.8 13.7 13.4 Plt Count 321 291 295 MPV 9.4 9.2 L 9.8 Immature Gran % (Auto) 0.3 0.6 0.4 Neut % (Auto) 64.5 64.9 64.8 Lymph % (Auto) 20.3 15.7 15.2 [place] % (Auto) 11.3 11.7 10.6 Eos % (Auto) 3.3 6.9 8.7 Baso % (Auto) 0.3 0.2 0.3 Neut # (Auto) 5.83 5.52 6.10 Lymph # (Auto) 1.84 1.34 1.43 [place] # (Auto) 1.02 H 1.00 H 1.00 H Eos # (Auto) 0.30 0.59 H 0.82 H Baso # (Auto) 0.03 0.02 0.03 Immature Gran # (Auto) 0.03 0.05 0.04 Sodium 140 137 137 Potassium 3.8 3.7 3.3 L Chloride 107 103 101 Carbon Dioxide 25 27 27 Anion Gap 8 7 9 BUN 29 H 29 H 25 H Creatinine 0.78 0.81 0.87 Est Cr Clr Drug Dosing 79.8 76.8 71.5 Est GFR ( Amer) 91.2 87.1 79.9 Est GFR (Non-Af Amer) 78.7 75.2 68.9 BUN/Creatinine Ratio 37.2 H 35.8 H 28.7 H Glucose 108 H 104 H 98 Calcium 8.5 L 8.9 8.9 Phosphorus 4.0 Magnesium 2.0 1.9 Diagnostic Findings No recent imaging Medications Administered Home Medications Medication Instructions Recorded Confirmed Last Taken acetaminophen 325 mg capsule 325 mg PO QID PRN prn 05/16/23 09/01/23 1 Month Ago ~07/10/23 albuterol sulfate 90 mcg/actuation 2 puff inhalation Q6H PRN prn 05/16/23 09/01/23 Unknown aerosol inhaler (Ventolin HFA) ascorbic acid (vitamin C) 500 mg 500 mg PO TID 05/16/23 09/01/23 08/08/23 20:00 capsule budesonide-formoterol HFA 80 2 puff inhalation BID 05/16/23 09/01/23 08/09/23 08:00 mcg-4.5 mcg/actuation aerosol inhaler (Symbicort) famotidine 20 mg tablet 20 mg PO BID 05/16/23 09/01/23 Unknown ferrous sulfate 325 mg (65 mg 325 mg PO TID 05/16/23 09/01/23 08/08/23 20:00 iron) tablet furosemide 20 mg tablet 40 mg PO QAM 05/16/23 09/01/23 08/08/23 08:00 ipratropium 0.5 mg-albuterol 3 mg 3 ml inhalation Q6H PRN prn 05/16/23 09/01/23 Unknown (2.5 mg base)/3 mL nebulization soln levothyroxine 50 mcg capsule 50 mcg PO QAM 05/16/23 09/01/23 Unknown omeprazole 20 mg capsule,delayed 20 mg PO QAM 05/16/23 09/01/23 Unknown release pregabalin 50 mg capsule 100 mg PO HS 05/16/23 09/01/23 08/08/23 20:00 rivaroxaban 10 mg tablet (Xarelto) 10 mg PO QPM 05/16/23 09/01/23 08/05/23 psyllium husk 1 tbsp PO DAILY 07/16/23 09/01/23 08/07/23 oxycodone 5 mg tablet 5 mg PO Q6 PRN pain #30 tabs 08/10/23 09/01/23 Unknown Active Medications Generic Name Dose Route Start Last Admin Trade Name Freq PRN Reason Stop Dose Admin Acetaminophen 650 mg 09/01/23 13:19 09/03/23 02:52 Acetaminophen 325 Mg Tab PO 10/01/23 13:18 650 mg Q4H PRN Administration pain/fever Famotidine 20 mg 09/01/23 21:00 09/05/23 08:32 Famotidine 20 Mg Tab PO 10/01/23 20:59 20 mg BID MIROSLAVA Administration Ferrous Sulfate 325 mg 09/01/23 17:00 09/05/23 12:20 Ferrous Sulfate 325 Mg Tab PO 10/01/23 16:59 325 mg TIDM MIROSLAVA Administration Fluticasone/Vilanterol 1 puffs 09/02/23 09:00 09/05/23 08:32 Fluticasone/Vilanterol 100/25mcg 14 Puffs/Inhaler INH 10/02/23 08:59 1 puffs DAILY MIROSLAVA Administration Furosemide 40 mg 09/02/23 09:00 09/05/23 08:32 Furosemide 40 Mg Tab PO 10/02/23 08:59 40 mg QAM [facility]IROSLAVA Administration Ceftriaxone Sodium 2,000 mg/ 50 mls @ 100 mls/hr 09/02/23 12:00 09/05/23 12:20 Dextrose IV 09/09/23 11:59 100 mls/hr Q24H [facility] Administration Protocol Linezolid 600 mg in 300 mls @ 300 mls/hr 09/04/23 12:00 09/05/23 00:40 Zyvox IV 09/11/23 11:14 Infused Q12H [facility] Infusion Lactic Acid 1 gm 09/03/23 14:00 09/05/23 08:32 Ammonium Lactate 12% Lotion 225 Gm Btl EXT 10/03/23 13:59 1 gm TID [facility]IROSLAVA Administration Levothyroxine Sodium 50 mcg 09/02/23 06:30 09/05/23 05:21 Levothyroxine Sodium 50 Mcg Tablet PO 10/02/23 06:29 50 mcg DAILYBB [facility]OSLA[facility] Administration Pantoprazole Sodium 40 mg 09/02/23 09:00 09/05/23 08:33 Pantoprazole 40 Mg Tab PO 10/02/23 08:59 40 mg QAM [facility]LA[facility] Administration Pregabalin 100 mg 09/01/23 21:00 09/04/23 20:09 Pregabalin 100 Mg Cap PO 10/01/23 20:59 100 mg HS [facility]OSLAVA Administration Rivaroxaban 10 mg 09/01/23 21:00 09/04/23 20:10 Rivaroxaban 10 Mg Tablet PO 10/01/23 20:59 10 mg QPM [facility] Administration Senna/Docusate Sodium 1 tab 09/04/23 13:00 09/05/23 08:32 Docusate Sodium/Senna 50/8.6mg Tab PO 10/04/23 12:59 1 tab QAM [facility]LA[facility] Administration Triamcinolone Acetonide 1 appln 09/03/23 09:45 09/05/23 08:32 Triamcinolone Acet 0.1% Oint 15 Gm Tube EXT 10/03/23 09:44 1 appln BID [facility] Administration (2) Cellulitis Site of cellulitis: unspecified site Qualified Code(s): L03.90 - Cellulitis, unspecified
[2023-09-05] MEDS: LINEZOLID 600 MG/300 ML BAG IV SCH (12:57)
[2023-09-05] MEDS ORDERED: CIPROFLOXACIN 500 MG TAB PO STA (14:35)
--- NOTE | 2023-09-05 14:41 | Discharge Summary ---
Discharge Summary Date of Service September 05, 2023 Notes For Next Care Provider Patient admitted for superficial soft tissue infection to right total knee replacement incision site. She was seen and evaluated by orthopedics and has not felt that this is extending to the joint and most likely all related to soft tissue. She was hospitalized and treated with IV antibiotics. She did have an allergic drug reaction to daptomycin with rash. She was therefore placed on Zyvox. She was seen and evaluated by infectious disease prior to discharge and recommended to be discharged on a trial of oral antibiotics with Cipro and Zyvox. We will continue this for additional 11 days. Medication Changes From Visit New medications: Ciprofloxacin 500 mg twice daily for additional 11 days. Next dose due 09/06/2023 A.M. Zyvox 600mg twice daily for additional 11 days. Next dose dose 07/07/24 A.M. Probiotic daily for the next 14 days for GI protection. Continue to Use AM-Lactin lotion or Triamcinolone as needed for itching Do Not Use anti nausea medication Zofran while using the antibiotic Cipro and these two interact with each other. Admission HPI Per Admitting Provider Right Total Knee Arthroplasty on 08/09/23 under the care of Dr. Johnston; bette removed on Monday 08/28; now erythematous at site with green drainage; non- maldordours started 48 hr ago after she started her exercises. No Leukocytosis and otherwise labs unremarkable. ED physician spoke with Ortho delivery consultant who will formally see the patient. For now, recommended IV antibiotics. Vanco and Ceftriaxone started in ED. She uses a can int he house and walker outside of the house to ambulate. No leukocytosis and does not appear toxic. Other PMH includes: H/O DVT provoked in 2014; on Xarelto. H/O PE 2020 provoked secondary to covid. H/O Fungal PNA and pulmonary fibrosis; follows Dr. Bernal and takes Zithromax three times weekly. Pt denies CHEEK, dizziness, SOB, chest pain, palpitations, neuropathy, N/V/D, abdominal pain or tenderness, visual or auditory changes, mental status changes, recent falls or trauma. Pt denies tobacco use, alcohol use, recreational drug use. She has not had any other major surgeries. No family history of AMI or CVA. On examination, AAO x4, right knee midline incision erythematous around midline without malodor. (+) popliteal , posttibial, and pedal pulses. Will admit for continuation of IV abx, NPO after MN with pending orthopedics consultation. Discussed with Orthopedics; ok to continue Xarelto for now. Patient will be admitted for further evaluation and management. Please see A/P for further details. Admission Exam Per Admitting Provider On exam, General: Obese, no acute distress Eyes: PERRL, conjunctivae normal, not pale, anicteric sclerae, EOM intact bilaterally ENMT: External ear and nose normal, oropharynx normal Respiratory: Normal respiratory effort, no respiratory distress, lungs clear to auscultation, no crackles and no wheezes Cardiovascular: RRR S1 S2 Gastrointestinal (Abdomen): Abdomen is not distended, soft, non-tender to palpation, no guarding, no palpable hepatosplenomegaly, normal bowel sounds Musculoskeletal: Tiny opening along center of Right knee surgical site with surrounding erythema. No tenderness. 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 Mendez is a 68 year old woman with past medical history of DVT/PE on xarelto, pulmonary fibrosis c/b fungal pneumona (Dr Bernal), hypothyroidism, RLS and JANINE who is s/p Right Total Knee Arthroplasty on 08/09/23 under the care of Dr. Johnston. Patient admitted on 09/01 due to concern for surgical site infection. Patient's bette removed on Monday 08/28. On Thursday 08/31, patient noted feeling down with her physical therapy exercises and some increased soreness. She noted redness and discharge from surgical site. Patient started on Vanc, CTX. Vanc discontiued, Dapto added. Ortho on consult, suspects likely superficial infection at this time. Plan is to continue IV antibiotics and monitor clinical response for another 24 hours. If notable improvement, potential for discharge on PO regimen with close OP follow up. If still concerned, Ortho will plan washout. #SSTI/ Surgical site infection #s/p right RKA Right Total Knee Arthroplasty on 08/09/23 under the care of Dr. Johnston Bette removed as OPT on Monday 08/28, appeared infectious 08/30 Follow up infectious work up -No wound culture as will only capture skin santhosh -Continue Rocephin, switch Daptomycin to Doxycycline for suspected drug reaction on 09/03 -Blood cultures NGTD -Erythema worsening on 09/04, will switch Doxy to IV Zyvox for better MRSA coverage, continue IV Rocephin -Drug Rash from Dapto much improved -Discussed with Dr. Johnston - no current indication for wash out, we both feel infection superficial, pt ambulating well w/o pain -Patient has been seen and evaluated by infectious disease. Okay to discharge on trial of oral antibiotics with ciprofloxacin 500 mg twice daily for additional 11 days and Zyvox 600 mg twice daily for additional 11 days. -Placed a call to patient's pharmacy which states both antibiotics will be a total of $9 and they will not have them in until later tomorrow afternoon. We will send her home with a 24-hour home pack supply. 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 Bernal; last appt 07/11/23 Takes Zithromax three times weekly;continue Takes Lasix; continue #JANINE: Chronic Uses Symbicort and Albuterol PRN; cont Wears CPAP at home; will order CPAP while here at Disposition: PCP: Candie Rey PA-C Code Status: Full Code VTE Prophylaxis: On Xarelto Patient is been seen and evaluated by infectious disease. She is medically stable to be discharged home. Discussed with patient and nurse at bedside. All questions were answered and she agrees with above. Pt was seen and examined in collaboration with Dr. Jacobs, please see addendum Discharge Exam Gen: WD/WN, NAD, A&O x3 HEENT: Normocephalic, atraumatic, conjunctivae moist, sclerae anicteric, mucous membranes moist. Lung: Clear to Auscultation bilaterally, no wheezes/rales/rhonchi Heart: Regular rate, regular rhythm, no murmurs, rubs, or gallops Abdomen: Soft, NT, ND +BS x 4 Extremities: R knee incision CDI, central area of clearing around incision site. Erythema slowing improving, less warm Skin: Warm, erythematous maculopapular rash to back/upper thorax, negative turgor. Updated Medication List Medication Instructions Recorded Confirmed Type acetaminophen 325 mg capsule 325 mg PO QID PRN prn 05/16/23 09/01/23 History albuterol sulfate 90 mcg/actuation 2 puff inhalation Q6H PRN prn 05/16/23 09/01/23 History aerosol inhaler (Ventolin HFA) ascorbic acid (vitamin C) 500 mg 500 mg PO TID 05/16/23 09/01/23 History capsule budesonide-formoterol HFA 80 2 puff inhalation BID 05/16/23 09/01/23 History mcg-4.5 mcg/actuation aerosol inhaler (Symbicort) famotidine 20 mg tablet 20 mg PO BID 05/16/23 09/01/23 History ferrous sulfate 325 mg (65 mg 325 mg PO TID 05/16/23 09/01/23 History iron) tablet furosemide 20 mg tablet 40 mg PO QAM 05/16/23 09/01/23 History ipratropium 0.5 mg-albuterol 3 mg 3 ml inhalation Q6H PRN prn 05/16/23 09/01/23 History (2.5 mg base)/3 mL nebulization soln levothyroxine 50 mcg capsule 50 mcg PO QAM 05/16/23 09/01/23 History omeprazole 20 mg capsule,delayed 20 mg PO QAM 05/16/23 09/01/23 History release pregabalin 50 mg capsule 100 mg PO HS 05/16/23 09/01/23 History rivaroxaban 10 mg tablet (Xarelto) 10 mg PO QPM 05/16/23 09/01/23 History psyllium husk 1 tbsp PO DAILY 07/16/23 09/01/23 History oxycodone 5 mg tablet 5 mg PO Q6 PRN pain #30 tabs 08/10/23 09/01/23 Rx Saccharomyces boulardii 250 mg 250 mg PO DAILY #14 caps 09/05/23 Rx capsule (Florastor) ciprofloxacin HCl 500 mg tablet 500 mg PO BID #22 tabs 09/05/23 Rx linezolid 600 mg tablet (Zyvox) 600 mg PO BID 11 days #22 tabs 09/05/23 Rx triamcinolone acetonide 0.1 % 1 applic EXT BID rash #15 grams 09/05/23 Rx topical ointment Hospital Stay Data Consultations 09/01/23 12:55 ED Decision to Admit Stat 09/01/23 16:08 Consult Orthopedic Surgery Routine 09/04/23 11:04 Consult Infectious Diseases Routine Pending Results Patient Have Any Pending Studies at Discharge: No Discharge Instructions Given to Patient (Per Discharging Provider) MEDICATION CHANGES: New medications: Ciprofloxacin 500 mg twice daily for additional 11 days. Next dose due 09/06/2023 A.M. Zyvox 600mg twice daily for additional 11 days. Next dose dose 07/07/24 A.M. Probiotic daily for the next 14 days for GI protection. Continue to Use AM-Lactin lotion or Triamcinolone as needed for itching Do not use anti nausea medication, Zofran, While taking Ciprofloxacin as these two medications can interact. SUMMARY OF TEST RESULTS: You were admitted to hospital secondary to a superficial skin infection related to your right total knee replacement. You were seen and evaluated by your orthopedic surgeon who did not feel your infection requires any further surgical intervention. You were seen and evaluated by infectious disease for antibiotic recommendations. You did develop a rash and this is thought to be due to antibiotic, Daptomycin. Please alert your primary care provider to add to your allergy list. PENDING TEST RESULTS: None RECOMMENDATIONS FOR FOLLOW-UP: Continue your current medication regimen. Continue to follow your current orthopedic activity plan. Please complete antibiotics in their entirety. If you have any difficulty with your antibiotics or adverse drug reaction please contact your primary care provider immediately. Recommend taking daily probiotic while on antibiotic therapy for GI prevention. If symptoms worsen please contact orthopedic surgeon and report to emergency department. OTHER INSTRUCTIONS: Seek medical attention if you have: * temperature above 101 * chest pain or trouble breathing * abdominal pain, nausea, vomiting * diarrhea, dark stools or bloody stools * any unanswered questions or concerns Call 911 if symptoms are severe. Please take good care of yourself. It has been a pleasure taking care of you. Please take care of yourself. If you have any questions regarding your recent hospitalization please contact [facility] and request [facility] @ [phone]. Martha Salomon PA-C Total Time Total Time Spent Total Time Spent (In Minutes): 55 minutes Supervising Physician Co-Signing Physician Notes I have seen and discussed the case with the collaborating TONIE. I agree with the above PN. I have reviewed and confirmed the patients medical history, the findings on physical examination, and the patients diagnosis and treatment plan with Umm SCHILLING and agree with the information documented. In short, Ms. Mendez is 68 year old woman with recent knee replacement with concern for superficial infection. Appears patient has a drug eruption which is improving with cessation of dapto. Physical exam revealed maculopapular rash torso/chest, which seems to be less prominent on day of discharge. Incision on right knee appears more dry this am with marginal improvement in surrounding erythema. ID consulted, recommend discharge on cipro/linezolid for an additional 11 days with plans for close follow up with surgery. Rest of plan as above I spent a total of 25 minutes coordinating, documenting, and providing care for this patient excluding time spent in the performance of separately billed services. All of the aforementioned completed outside of collaboration with advanced practitioner for a full treatment plan.
[2023-09-05] MEDS ORDERED: CIPROFLOXACIN 500MG HOME PACK PO ONE (15:00)
[2023-09-05] MEDS ORDERED: LINEZOLID 600 MG TAB PO SCH ×2 (15:00→21:00)
== END 2023-09-05 17:00 | disposition home or self-care (01) | DRG 863 ==
LOC: ED 11:54 → 3E 13:19 → SUATTDRO 13:19 → 3E 14:47

== ENCOUNTER 2023-11-19 09:14 | Observation (INO) ==
--- NOTE | 2023-11-02 13:10 | Anesthesiology Consultation ---
Date of Service November 02, 2023 Assessment & Plan (1) Encounter for pre-operative examination: - Infectious disease screening: Per assessment on 11/02/23: No known infectious disease contacts or current infectious disease symptoms. No noted recent Covid positive test result. - Outpatient joint assessment: Pt currently scheduled for inpatient pathway. If surgeon requests review for outpatient joint pathway, patient is not recommended candidate for outpatient joint program from anesthesia standpoint. - Pulmonary visit (07/11/23): Seen prior to Right TKA done 07/2023 at [facility] > Has been fairly stable and tries to be functional. Still shortness of breath with moderate to strenuous activities. Patient is planning to have right knee replacement surgery and was wondering if it would be okay to go off Xarelto for 3 days prior to procedure. Interstitial lung diseasepatient clinically stable remains functional. Will continue to monitor conservatively at this point. Pulmonary hypertensionusing diuretic as recommended. OSAusing CPAP. Moderate persistent asthmacontinue with inhaler. Stable hernia with GERDcontinue reflux precautions. Morbid obesitycontinue diet and exercise as tolerated. COVID-19clinically stable. History of pulmonary embolismon Xarelto. She can stop her Xarelto 3 days before surgery. Continue current medications. Follow- up in 1 year - S/P Right TKA (08/09/23): SAB at L3/4 + regional at [facility] - Orthopedic surgeon visit (09/26/23): "Shraddha is a pleasant 68-year-old female who is now 7 weeks status post right total knee arthroplasty. Postoperative course has been complicated by a postoperative cellulitis. She was placed on oral antibiotics. She is doing much better and the cellulitis has completely resolved. She has been off the antibiotics for the last week. It has not returned. She has no pain in her right knee. Unfortunately, she is dealing with a lot of left knee pain and she has known osteoarthritis of her left knee.. With regard to her right knee, she is doing well. She has been off the antibiotics for a week and the cellulitis has not returned. She is very happy with the progress. She would like to proceed with a left total knee arthroplasty. She understands the risks, benefits, and alternatives of the procedure and is electing to proceed." - Xarelto instructions: Spoke with patient via phone 11/02/23- patient made aware that for neuraxial anesthesia, Xarelto needs to be held 72 hours prior to surgery (patient states that these were the instructions she was already provided). Chart Review Chart Review: Acceptable Risk for Surgery and Patient NOT seen in Pre Admission Testing History Surgery Operation Date: 11/19/23 12:30 Proposed Procedures p Left Total Knee Arthroplasty - Amilcar Johnston DO Height/Weight Height: 5 ft 1 in Weight: 104.326 kg Allergies Allergy/AdvReac Type Severity Reaction Status Date / Time enoxaparin [From Lovenox] Allergy Severe Rash Verified 11/02/23 11:48 ciprofloxacin Allergy Intermediate Rash Verified 11/02/23 11:48 daptomycin Allergy Mild rash Verified 11/02/23 11:48 Iodinated Contrast Media Allergy Mild Itching Verified 11/02/23 11:48 Medications Home Medications Medication Instructions Recorded Confirmed Last Taken acetaminophen 325 mg capsule 325 mg PO QID PRN prn 05/16/23 11/02/23 1 Month Ago ~07/10/23 albuterol sulfate 90 mcg/actuation 2 puff inhalation Q6H PRN 05/16/23 11/02/23 Unknown aerosol inhaler (Ventolin HFA) Shortness Of Breath ascorbic acid (vitamin C) 500 mg 500 mg PO TID 05/16/23 11/02/23 08/08/23 20:00 capsule budesonide-formoterol HFA 80 2 puff inhalation BID 05/16/23 11/02/23 08/09/23 08:00 mcg-4.5 mcg/actuation aerosol inhaler (Symbicort) famotidine 20 mg tablet 20 mg PO BID 05/16/23 11/02/23 Unknown ferrous sulfate 325 mg (65 mg 325 mg PO TID 05/16/23 11/02/23 08/08/23 20:00 iron) tablet furosemide 20 mg tablet 40 mg PO QAM 05/16/23 11/02/23 08/08/23 08:00 ipratropium 0.5 mg-albuterol 3 mg 3 ml inhalation Q6H PRN Shortness 05/16/23 11/02/23 Unknown (2.5 mg base)/3 mL nebulization Of Breath soln levothyroxine 50 mcg capsule 50 mcg PO QAM 05/16/23 11/02/23 Unknown omeprazole 20 mg capsule,delayed 20 mg PO QAM 05/16/23 11/02/23 Unknown release pregabalin 50 mg capsule 100 mg PO HS 05/16/23 11/02/23 08/08/23 20:00 rivaroxaban 10 mg tablet (Xarelto) 10 mg PO QPM 05/16/23 11/02/23 08/05/23 psyllium husk 1 tbsp PO DAILY 07/16/23 11/02/23 08/07/23 azithromycin 250 mg tablet 250 mg PO [id number] 11/02/23 11/02/23 Unknown (Zithromax) Past Medical History Medical History Atrial fibrillation Episode 2018 (during PNA hospitalization), no known issues since, NSR on most recent EKG 07/19/23 GI bleed 2021, evaluated by GI at the time and was "cleared" No issues since Hiatal hernia History of COVID-19 2020- hospitalized [facility], DVT/PE History of DVT (deep vein thrombosis) 2014- provoked 2020- s/p Covid infection Hx pulmonary embolism 2020 (after COVID infection) Taking Xarelto Hypothyroidism Morbid obesity with BMI of 40.0-44.9, adult Pulmonary fibrosis R/t previous fungal infection (2017) Follows with Dr Bernal ([facility]) Takes Zithromax 3 times a week Pulmonary hypertension Echo 2020: Estimated PASP is 58 mmHg Sleep apnea CPAP Past Family History Family History Other No family history of adverse response to anesthesia Past Surgical History Surgical History History of bronchoscopy History of colonoscopy Status post right knee replacement (07/2023) Social History Smoking Status: Never smoker Do You Dip or Chew Tobacco: No Hx Alcohol Use: No Hx Substance Use: No substance use type: does not use Lab Results Anesthesia Preop Results Results Anesthesia Widget: WBC 6.60 K/ul (4.8-10.8) 09/27/23 Hgb 12.9 g/dl (12.0-16.0) 09/27/23 Hct 40.6 % (37.0-47.0) 09/27/23 Plt 321 K/uL (130-400) 09/27/23 Na 142 mmol/L (136-145) 09/27/23 K 3.9 mmol/L (3.5-5.1) 09/27/23 Cl 106 mmol/L (98-107) 09/27/23 CO2 28 mmol/L (21-32) 09/27/23 BUN 15 mg/dl (6-23) 09/27/23 Creat 0.73 mg/dl (0.6-1.2) 09/27/23 Glucose Level 96 mg/dl (70-99(Fasting)) 09/27/23 PT 10.9 Seconds (9.0-12.0) 09/27/23 PTT 29 Seconds (21-31) 09/27/23 INR 1.0 (0.9-1.1) 09/27/23 Blood Type A Positive 09/27/23 Antibody Screen NEGATIVE 09/27/23 Testing Electrocardiogram Date: 07/19/23 Findings: + NSR @ (61bpm) RBBB Chest X-Ray Date: 07/11/23 Findings: + NAD and + cardiomegaly Circumscribed retrocardiac density distended with air, compatible with large hiatal hernia Echocardiogram Date: 05/09/21 EF: 50-54% LV Function: normal Other Findings: no LVH or no diastolic dysfunction Septal motion is normal, mild hypokinesis of the inferior lateral wall and inferior wall. RV systolic function is mildly reduced. Estimated PASP is 58 mmHg Dilated IVC with reduced collapsibility with sniff indicates an elevated right atrial pressure of 15 mmHg Mild MR. Mild TR
--- NOTE | 2023-11-15 11:23 | History & Physical Report ---
Date of Service November 15, 2023 Assessment & Plan (1) Osteoarthritis of left knee: We will proceed with a left total knee arthroplasty. Postoperatively she will be started on Xarelto for DVT prophylaxis and kept overnight in the hospital for postop medical management. She plans to have energy physical therapy upon discharge. History of Present Illness Chief Complaint: Osteoarthritis of the left knee. Primary Care Provider: Candie Rey PA-C Shraddha is a pleasant 68-year-old female who is now 7 weeks status post right total knee arthroplasty. Postoperative course has been complicated by a postoperative cellulitis. She was placed on oral antibiotics. She is doing much better and the cellulitis has completely resolved. She has been off the antibiotics for the last week. It has not returned. She has no pain in her right knee. Unfortunately, she is dealing with a lot of left knee pain and she has known osteoarthritis of her left knee. After failing extensive conservative treatment with the left knee, she has elected proceed with a left total knee arthroplasty. Allergies Allergy/AdvReac Type Severity Reaction Status Date / Time enoxaparin [From Lovenox] Allergy Severe Rash Verified 11/02/23 11:48 ciprofloxacin Allergy Intermediate Rash Verified 11/02/23 11:48 daptomycin Allergy Mild rash Verified 11/02/23 11:48 Iodinated Contrast Media Allergy Mild Itching Verified 11/02/23 11:48 Home Medications Medication Instructions Recorded Confirmed Type acetaminophen 325 mg capsule 325 mg PO QID PRN prn 05/16/23 11/02/23 History albuterol sulfate 90 mcg/actuation 2 puff inhalation Q6H PRN 05/16/23 11/02/23 History aerosol inhaler (Ventolin HFA) Shortness Of Breath ascorbic acid (vitamin C) 500 mg 500 mg PO TID 05/16/23 11/02/23 History capsule budesonide-formoterol HFA 80 2 puff inhalation BID 05/16/23 11/02/23 History mcg-4.5 mcg/actuation aerosol inhaler (Symbicort) famotidine 20 mg tablet 20 mg PO BID 05/16/23 11/02/23 History ferrous sulfate 325 mg (65 mg 325 mg PO TID 05/16/23 11/02/23 History iron) tablet furosemide 20 mg tablet 40 mg PO QAM 05/16/23 11/02/23 History ipratropium 0.5 mg-albuterol 3 mg 3 ml inhalation Q6H PRN Shortness 05/16/23 0 11/02/23 History (2.5 mg base)/3 mL nebulization Of Breath soln levothyroxine 50 mcg capsule 50 mcg PO QAM 05/16/23 11/02/23 History omeprazole 20 mg capsule,delayed 20 mg PO QAM 05/16/23 11/02/23 History release pregabalin 50 mg capsule 100 mg PO HS 05/16/23 11/02/23 History rivaroxaban 10 mg tablet (Xarelto) 10 mg PO QPM 05/16/23 11/02/23 History psyllium husk 1 tbsp PO DAILY 07/16/23 11/02/23 History azithromycin 250 mg tablet 250 mg PO 3XWK 11/02/23 11/02/23 History (Zithromax) Past Med/Surg History Medical History Morbid obesity with BMI of 40.0-44.9, adult History of DVT (deep vein thrombosis) 2015- provoked 2020- s/p Covid infection Hiatal hernia Pulmonary hypertension Echo 2020: Estimated PASP is 58 mmHg Hypothyroidism Hx pulmonary embolism 2020 (after COVID infection) Taking Xarelto GI bleed 2021, evaluated by GI at the time and was "cleared" No issues since Atrial fibrillation Episode 2017 (during [facility] hospitalization), no known issues since, NSR on most recent EKG 07/19/23 Sleep apnea CPAP Pulmonary fibrosis R/t previous fungal infection (2017) Follows with Dr Bernal ([facility]) Takes Zithromax 3 times a week History of COVID-19 2020- hospitalized [facility], DVT/PE Surgical History Status post right knee replacement (07/2023) History of colonoscopy History of bronchoscopy Family History Other No family history of adverse response to anesthesia Social History Smoking Status: Never smoker Second Hand Exposure: No; Do You Dip or Chew Tobacco: No; Tobacco Cessation Education Requested by Patient: No Hx Alcohol Use: No Hx Substance Use: No Preferred Language: Burundian Communication Ability: Effective Director Home Required: No Beliefs That Will Affect Care: None Current Living Situation: Alone Current Living Situation Comment: Alone in own home Other Information That Helps Us Care for You: No Feels Safe at Home: Yes Safety Concerns: Feels Safe At This Time Assistive Devices: CPAP, Denture - Upper, Glasses and Nebulizer Review of Systems All systems reviewed & are unremarkable except as noted in HPI & below. Physical Exam Physical examination of the left knee, she has severe varus deformity. Tenderness palpation of the distal medial femoral condyle and over the medial joint line.. Constitutional WD/WN, vitals as above Eyes PERRL, conjunctivae normal, anicteric sclerae ENMT external ear and nose normal, oropharynx normal Neck trachea midline, no thyromegaly Respiratory normal respiratory effort Cardiovascular RRR, no murmur, no edema Gastrointestinal (Abdomen) normal bowel sounds, soft, nontender, no hepatosplenomegaly Psychiatric A+Ox3, euthymic affect Results & Data Results & Data Laboratory Results . Diagnostic Findings X-rays of the left knee show advanced osteoarthritis with joint space narrowing, osteophyte formation, and [id number] tubulation. PG Care Time/CCT Total # of Minutes Spent Total Time Spent with Patient: Total time spent is greater than 50% in coordination of care (as documented) at patient's floor/unit and/or counseling patient: Coding Level of Care Code None Diagnoses Osteoarthritis of left knee M17.12
[~2023-11-19 09:14] MED LIST changes: -ACETAMINOPHEN 500 MG TAB PO SCH; -BUPIVACAINE 0.25% PF 30 ML VIAL ONE; -DEXAMETHASONE SOD INJ 4 MG/ML VIAL ONE; -EPINEPHrine INJ 1 MG/ML AMP ONE; -FAMOTIDINE 20 MG TAB PO SCH; -GABAPENTIN 300 MG CAP PO SCH; -LR 500ML BOLUS, THEN 15ML/HR IV SCH; -LR 60ML/HR IV SCH; -ORTHO JOINT MIX INFIL SCH; +ROPIVACAINE 0.5% 5 MG/ML 30 ML VIAL ONE; -TRANEXAMIC ACID 1,000 MG **IV Intra-op IV SCH; -TRANEXAMIC ACID 1,000 MG **IV Pre-op IV SCH; -ceFAZolin 2000MG 2,000 MG/15 ML SYR IV SCH; -dexAMETHasone 4 MG TAB PO SCH
--- NOTE | 2023-11-19 10:04 | History & Physical Bridge Note ---
Date of Service November 19, 2023 History & Physical Bridge Note I have examined the patient, reviewed the History & Physical and in the interval since the performance of the History & Physical I have noted the following changes of clinical significance: no changes noted
[2023-11-19] MEDS: LR 500ML BOLUS, THEN 15ML/HR IV SCH (10:05)
[2023-11-19] MEDS: LR 60ML/HR IV SCH (10:05)
[2023-11-19] MEDS: GABAPENTIN 300 MG CAP PO SCH (10:07)
[2023-11-19] MEDS: FAMOTIDINE 20 MG TAB PO SCH ×2 (10:08→20:53)
[2023-11-19] MEDS: ACETAMINOPHEN 500 MG TAB PO SCH ×2 (10:08→17:20)
[2023-11-19] MEDS: dexAMETHasone**PF** 10 MG/ML VIAL IV SCH (10:09)
[2023-11-19] MEDS ORDERED: ATROPINE SULFATE 0.1 MG/ML 10ML SYR IV PRN (10:14)
[2023-11-19] MEDS ORDERED: fentaNYL citrate PF 100 MCG/2 ML VIAL IV PRN (10:14)
[2023-11-19] MEDS ORDERED: ePHEDrine sulfate 50 MG/ML AMP IV PRN (10:14)
[2023-11-19] MEDS ORDERED: ONDANSETRON INJ 2 MG/ML 2 ML VIAL IV PRN ×2 (10:14→17:03)
[2023-11-19] MEDS ORDERED: MIDAZOLAM HCL 1 MG/ML 2ML VIAL ONE (10:34)
[2023-11-19] MEDS: TRANEXAMIC ACID 1,000 MG **IV Pre-op IV SCH (10:49)
[2023-11-19] MEDS: ceFAZolin 2000MG 2,000 MG/15 ML SYR IV SCH ×2 (11:09→20:54)
[2023-11-19] MEDS ORDERED: PROPOFOL IV EMULSION 10 MG/ML 20 ML VIAL IV ONE ×2 (11:37→12:45)
[2023-11-19] MEDS ORDERED: LIDOCAINE 2% 2 ML VIAL/AMP(20MG/ML) INFIL ONE (11:37)
[2023-11-19] MEDS ORDERED: ONDANSETRON INJ 2 MG/ML 2 ML VIAL ONE (11:37)
[2023-11-19] MEDS: ROPIV 0.5% 246mg, Ketorolac 30mg, EPINEPHrine 0.5mg in NSS INFIL SCH (11:49)
[2023-11-19] MEDS: ORTHO JOINT ANESTHETIC ONE (11:49)
[2023-11-19] MEDS: TRANEXAMIC ACID 1,000 MG **IV Intra-op IV SCH (12:21)
--- OUTSIDE RECORDS SUMMARY | 2023-11-19 12:26 | External Medical Summary | Summary of Care ---
Author Name Unknown Organization [facility] Address [address] [place] [address] Phone [phone] Care Team Providers Care Medicine Technologist Name Role Phone Candie Rey PA-C Primary Care Provider [phone]- [phone] Reason for Visit * Reason Onset Date Comments Medication Problem 10/30/2023 Symbicort no longer formulary Encounter Details Date Type Department Care Team (Late st Contact Info) Description 10/30/2023 Telephone Pulmonary Medicine James Lyles [address] [place] [phone] Camilo Bernal MD [address] [address] Medication Problem (Symbicort no longer fo... Allergies Active Allergy Reactions Criticality Noted Date Comments Iodinated Contrast Media 01/26/2022 Will need premedicated for any Contrast Studies Enoxaparin Rash High 05/16/2021 documented as of this encounter (statuses as of 10/30/2023) Medications Medication Sig Dispensed Refills Start Date End Date Status acetaminophen (TYLENOL) 325 MG Tablet Take 1 Tablet by mouth every 4 hours as needed for Pain. 0 Active Ascorbic Acid (VITAMIN C) 500 MG CAPSIndications:Iro n deficiency anemia, unspecified iron deficiency anemia type Take 1 Cap by mouth 2 times a day. With iron 180 Cap 3 01/31/2020 Active Ventolin HFA 108 (90 Base) MCG/ACT Inhalation Aerosol Solution Inhale 2 Puffs by mouth every 4 hours as needed for Shortness of Breath. 18 g 6 07/28/2020 Active Spacer/Aero-Holding Chambers Device Use as directed with Symbicort. 1 Each 0 08/11/2020 Active CAM MISCELLANEOUS MEDICATION Take 2 Caps by mouth daily. Factor five herbal supplement from apothecary - Take 2 capsules by mouth daily for inflammation 0 Active CPAP every night at bedtime. Auto 6-15 cm 0 Active Ipratropium-Albuter ol 0.5-2.5 (3) MG/3ML Inhalation Solution (Duoneb)Indications :ILD (interstitial lung disease) ([facility]),Pulmonary hypertension ([facility]) INHALE THE CONTENTS OF 1 VIAL VIA NEBULIZER 3 TIMES A DAY NEEDED 810 mL 3 04/25/2021 Active Symbicort 80-4.5 MCG/ACT Inhalation Aerosol (Budesonide-Formote rol)Indications:Int erstitial lung disease ([facility]) INHALE 2 PUFFS IN THE MORNING AND 2 PUFFS BEFORE BEDTIME 30.6 g 3 11/24/2022 Active Famotidine 20 MG Oral Tablet (Pepcid)Indications :Gastroesophageal reflux disease without esophagitis TAKE 1 TABLET EVERY 12 HOURS 180 Tablet 2 01/03/2023 Active Omeprazole 20 MG Oral Capsule Delayed Release (PriLOSEC)Indicatio ns:Gastroesophageal reflux disease without esophagitis TAKE 1 CAPSULE EVERY DAY 90 Capsule 2 01/03/2023 Active Levothyroxine Sodium 50 MCG Oral Tablet (Levoxyl)Indication s:Hypothyroidism, unspecified type TAKE 1 TABLET EVERY DAY FIRST THING IN THE MORNING 90 Tablet 1 03/08/2023 Active Furosemide 20 MG Oral Tablet (Lasix) TAKE 2 TABLETS IN THE MORNING 180 Tablet 1 03/08/2023 Active FeroSul 325 (65 Fe) MG Oral Tablet (Ferrous Sulfate)Indications :Iron deficiency anemia, unspecified iron deficiency anemia type TAKE 1 TABLET THREE TIMES DAILY (MORNING, NOON, AND BEFORE BEDTIME) 270 Tablet 2 04/10/2023 Active Rivaroxaban 10 MG Oral Tablet (Xarelto)Indication s:History of GI bleed,History of DVT (deep vein thrombosis),Other acute pulmonary embolism without acute cor pulmonale (HCC) Take 1 Tablet by mouth in the morning. 90 Tablet 3 04/12/2023 Active Pregabalin 50 MG Oral Capsule (Lyrica)Indications :Neuropathy Take 2 Capsules by mouth at bedtime. 180 Capsule 1 07/25/2023 Active Azithromycin 250 MG Oral Tablet (Zithromax)Indicati ons:Interstitial lung disease (HCC) TAKE 1 TABLET ON MON, WED AND SUN 39 Tablet 3 08/02/2023 Active Fluticasone Furoate-Vilanterol 100-25 MCG/ACT Inhalation Aerosol Powder Breath Activated (BREO ellipta) Inhale 1 Puff by mouth in the morning. 180 Blister Dosing Unit 4 10/30/2023 Active Hospital, Clinic, or Other Facility Administered Medication [...] as of this encounter (statuses as of 10/30/2023) Active Problems Problem Noted Date Diagnosed Date [...] as of this encounter (statuses as of 10/30/2023) Resolved Problems Problem Noted Date Diagnosed Date [...] as of this encounter (statuses as of 10/30/2023) Immunizations No known immunizationsdocumented as of this [...] encounter Miscellaneous Notes * Telephone Encounter - Lorraine Don LPN - 10/30/2023 2:16 PM EDT Pt aware of the change to Breo. Dosing instructions and how to use the inhaler were reviewed with her. She states that she still has almost 2 full Symbicorts, so she plans to finish those before switching to the Breo. She will call the office back with any questions once she starts using it. * Telephone Encounter - Camilo Bernal MD - 10/30/2023 1:23 PM EDT Rah ordered Thank you * Telephone Encounter - Lorraine Don LPN - 10/30/2023 10:02 AM EDT Shraddha called the office because her Symbicort inhaler is no longer formulary. The preferred alternatives that she was given were Dulera or Breo. Please send one of these alternatives to [facility] pharmacy for a 3 month supply. documented in this encounter Plan of Treatment Upcoming Encounters Date Type Department Care Team (Late st Contact Info) Description 01/22/2024 9:00 AM EDT Nurse Only Ancillary, [place] [address] [place] [address] [place], Nurse Annual Wellness [address] [place] [address] [place] [address] 03/27/2024 8:40 AM EDT Office Visit Family Practice, [place] [address] [place] [address] Candie Rey PAHalleyC [address] [facility] [address] [place] [address] 07/11/2024 11:00 AM EST PulmDiagnostic Pulmonary Function Lab, [address] [address] [facility], Pulm Function [facility] [address] [facility] [address] 07/11/2024 11:30 AM EST Appointment Radiology, [facility] [address] [facility] [phone] 10/10/2024 1:00 PM EST Appointment Radiology[address] [address] Scheduled Procedures Name Priority Associated Diagnoses Date/Ti me COLONOSCOPY FLEXIBLE PROXIMAL DIAGNOSTIC Recall Diverticulosis Health Maintenance Due Date Last Done Comments Pneumococcal Vaccine: 65+ Years (1 of 2 - PCV) 1962 DTaP,Tdap,and Td Vaccines (1 - Tdap) 1975 Zoster Vaccines (1 of 2) 2006 COVID-19 Vaccine (1 - 2023-24 season) 2023 Influenza Vaccine (FLU shot) (#1) 2023 Depression Screening 06/19/2023 06/19/2022 TSH 09/27/2024 09/27/2023, 08/13, 08/17/2021, Additional history exists Mammogram 10/05/2024 10/05/2023, 08/14, 09/01/2021, Additional history exists COLONOSCOPY-EVERY 5 YRS AGES 18-100 01/06/2026 01/06/2021, 01/06/2021, 03/05/2020, Additional history exists Diabetes Screening 09/27/2026 09/27/2023, 0 08/24/2022, 08/24/2022, Additional history exists Lipid Panel 08/24/2027 08/24/2022, [...] this encounter Medical Devices Implanted Type Area Concrete Pipe Machine Operator Device Identifier Shelf Expiration Date Model / Serial / Lot Clip Quick 2.8mm 230cm - [id number] Implanted:Qty: 5 on 03/05/2020 by Brent Barrow MD at OR [facility] [employer] [facility] 05/12/2022 [id number] / / [id number] Description:Sigmoid colon = site placed documented as of this encounter Advance Directives Documents on File Type Date Recorded Patient Manager Sales Expl anation Advance Directives and Living Will 12/27/2022 ADVANCE DIRECTIVE / LIVING WILL Power of Electrical Journeyman 12/27/2022 POWER OF A TTORNEY - DURABLE [...] the patient have Health Care Power of Electrical Journeyman? No Full Code 03/03/2020 4:23 PM 03/03/2020 9:41 PM This order reflects the patients wishes and were consensually agreed upon. Question Answer Comments Discussion of Advance Directives occurred with: Patient Full Code 06/28/2018 9:42 AM 07/18/2018 6:19 PM This order reflects the patients wishes and were consensually agreed upon. Question Answer Comments Discussion of Advance Directives occurred with: Patient/Family Care Teams Medicine Technologist Relationship Specialty Start Date End Date Candie Rey PA-C [address] [facility] [address] [place] [address] PCP - General Physician Renewable Energy Broker 08/30/20 documented as of this encounter
--- OUTSIDE RECORDS SUMMARY | 2023-11-19 12:26 | External Medical Summary ---
Author Name Unknown Address Unknown Organization K01:[facility] [address] [facility] [address] Laboratory Report Ordering Provider Test Date Status NIK WEINBERG 09/27/2023 11:18:10 Correction Observation Date Value Abnormality Reference (Units ) Status BUN 09/27/2023 11:18:10 14 6-20 (mg/dL) Final Creatinine 09/27/2023 11:18:10 0.8 0.5-1.0 (mg/dL) Final Glomerular filtration rate/1.73 sq M.predicted [Volume Rate/Area] in Serum, Plasma or Blood by Creatinine-based formula (CKD-EPI) 09/27/2023 11:18:10 77 >=60 (mL/min) Final eGFR is calculated based on the CKD-EPI 2020 equation SODIUM 09/27/2023 11:18:10 144 135-146 (m mol/L) Correction Changed result: Previously r eported as 139 mmol/L on 09/28/2023 at 0159 EST. Potassium 09/27/2023 11:18:10 3.8 3.5-5.1 (m mol/L) Final Cl 09/27/2023 11:18:10 104 98-107 (mm ol/L) Correction Changed result: Previously r eported as 101 mmol/L on 09/28/2023 at 0159 EST. CO2 09/27/2023 11:18:10 23 22-32 (mmo l/L) Final Anion gap 09/27/2023 11:18:10 17 Above high normal 7- 15 (mmol/L) Correction Changed result: Previously r eported as 15 mmol/L on 09/28/2023 at 0159 EST. Glucose 09/27/2023 11:18:10 86 70-120 (mg /dL) Final Albumin 09/27/2023 11:18:10 4.4 3.8-5.0 (g /dL) Final AST (Aspartate aminotransferase) 09/27/2023 11:18:10 15 10-35 (U/L) Merrick marie Alk Phos 09/27/2023 11:18:10 133 Above high normal 35 -130 (U/L) Final Bilirubin, Total 09/27/2023 11:18:10 1.0 <=1 .2 (mg/dL) Final Calcium 09/27/2023 11:18:10 8.6 8.4-10.2 ( mg/dL) Final Protein 09/27/2023 11:18:10 6.6 6.0-8.3 (g /dL) Final ALT (Alanine aminotransferase) 09/27/2023 11:18:10 19 10-35 (U/L) Merrick marie Performing Location [facility] [address] [facility] [address]. [facility] [address]
--- OUTSIDE RECORDS SUMMARY | 2023-11-19 12:26 | External Medical Summary | Summary of Care ---
Author Name Unknown Organization [facility] Address [address] [place] [address] Phone [phone] Care Team Providers Care Lap Cutter Name Role Phone Candie Rey PA-C Primary Care Provider +1- [phone] Reason for Visit * Reason Onset Date Comments Test Results 10/10/2023 Order Request 10/10/2023 Encounter Details Date Type Department Care Team (Late st Contact Info) Description 10/10/2023 Telephone [facility] [address] [place] [address] Susana Ansari RN Test Results; Order Request Allergies Active Allergy Reactions Criticality Noted Date Comments Iodinated Contrast Media 01/26/2022 Will need premedicated for any Contrast Studies Enoxaparin Rash High 05/16/2021 documented as of this encounter (statuses as of 10/10/2023) Medications Medication Sig Dispensed Refills Start Date [...] Inhalation Solution (Duoneb)Indications :ILD (interstitial lung disease) ([facility]),Pulmonary hypertension ([facility]) INHALE THE CONTENTS OF 1 VIAL VIA NEBULIZER 3 TIMES A DAY NEEDED 810 mL 3 04/25/2021 Active Symbicort 80-4.5 MCG/ACT Inhalation Aerosol (Budesonide-Formote rol)Indications:Int erstitial lung disease ([facility]) INHALE 2 PUFFS IN THE MORNING AND [...] acute pulmonary embolism without acute cor pulmonale ([facility]) Take 1 Tablet by mouth in the morning. 90 Tablet 3 04/12/2023 Active Pregabalin 50 MG Oral Capsule (Lyrica)Indications :Neuropathy Take 2 Capsules by mouth at bedtime. 180 Capsule 1 07/25/2023 Active Azithromycin 250 MG Oral Tablet (Zithromax)Indicati ons:Interstitial lung disease (HCC) TAKE 1 TABLET ON MON, SUN AND SUN 39 Tablet 3 08/02/2023 Active Hospital, Clinic, or Other Facility Administered [...] as of this encounter (statuses as of 10/10/2023) Active Problems Problem Noted Date Diagnosed Date [...] as of this encounter (statuses as of 10/10/2023) Resolved Problems Problem Noted Date Diagnosed Date [...] as of this encounter (statuses as of 10/10/2023) Immunizations No known immunizationsdocumented as of this [...] encounter Miscellaneous Notes * Telephone Encounter - Felecia Ashford OSA - 10/10/2023 3:47 PM EST Appt made and letter sent. * Telephone Encounter - Susana Ansari RN - 10/10/2023 2:08 PM EST Please help schedule one year mammogram. Thank you! Reason for Call: Test Results and Order Request Contact: [facility] Contact Type: Care Coordination Outcome: MyG sent. Order placed. Face to face time spent with Patient (minutes): 0 Total Time including non face to face (minutes): 10 documented in this encounter Plan of Treatment Upcoming Encounters Date Type Department Care Team (Late st Contact Info) Description 03/27/2024 8:40 AM EDT Office Visit [place] [address] [address] [place] [address] Candie Rey PA-C [facility] [address] [place] [address] [place] [address] 07/11/2024 11:00 AM EST PulmDiagnostic Pulmonary Function Lab, [facility] [address] [facility] [address] [id number] [facility], Pulm Function Room 2 [address] [address] 07/11/2024 11:30 AM EST Appointment Radiology, [facility] [address] [place] [phone] 10/10/2024 1:00 PM EST Appointment Radiology[address] [place] [address] Scheduled Orders Name Type Priority Associated Diagnoses Orde r Schedule MAMMOGRAM SCREENING HEMANTH BILATERAL Medical Imaging Routine Encounter for screening mammogram for breast cancer Expected: 10/10/2024, Expires: 11/07/2024 Scheduled Procedures Name Priority Associated Diagnoses Date/Ti me COLONOSCOPY FLEXIBLE PROXIMAL DIAGNOSTIC Recall Diverticulosis Health Maintenance Due Date Last Done Comments Pneumococcal Vaccine: 65+ Years (1 of 2 - PCV) 1962 DTaP,Tdap,and Td Vaccines (1 - Tdap) 1975 Zoster Vaccines (1 of 2) 2006 COVID-19 Vaccine (1 - 2022- season) 2023 Influenza Vaccine (FLU shot) (#1) [...] this encounter Medical Devices Implanted Type Area Can Sterilizer Device Identifier Shelf Expiration Date Model / Serial / Lot Clip Quick 2.8mm 230cm - [id number] Implanted:Qty: 5 on 03/05/2020 by Brent Barrow MD at OR [facility] [employer] [facility] 05/12/2022 [id number] / [id number] Description:Sigmoid colon = site placed documented as of this encounter Visit Diagnoses Diagnosis Encounter for screening mammogram for breast cancer- Primary documented in this encounter Advance Directives Documents on File Type Date Recorded Patient Protocol Manager Expl anation Advance Directives and Living Will 12/27/2022 ADVANCE DIRECTIVE / LIVING WILL Power of Forest Fire Control Officer 12/27/2022 POWER OF A TTORNEY - DURABLE [...] the patient have Health Care Power of Forest Fire Control Officer? No Full Code 03/03/2020 4:23 PM 03/03/2020 9:41 PM This order reflects the patients wishes and were consensually agreed upon. Question Answer Comments Discussion of Advance Directives occurred with: Patient Full Code 06/28/2018 9:42 AM 07/18/2018 6:19 PM This order reflects the patients wishes and were consensually agreed upon. Question Answer Comments Discussion of Advance Directives occurred with: Patient/Family Care Teams Lap Cutter Relationship Specialty Start Date End Date Candie Rey PA-C [address] [facility] [address] [facility] [place] [phone] PCP - General Physician Cooperative Manager 08/30/20 documented as of this encounter
--- OUTSIDE RECORDS SUMMARY | 2023-11-19 12:26 | External Medical Summary | Summary of Care ---
Author Name Unknown Organization [facility] Address [address] [place] [address] Phone [phone] Care Team Providers Care Welcome Wagon Host/Hostess Name Role Phone Candie Rey PA-C Primary Care Provider +1- [phone] Encounter Details Date Type Department Care Team (Latest Contact Info) Description 10/05/2023 1:38 PM EST - 10/05/2023 11:59 PM EST Hospital Encounter Radiology, [address] [address] Arrived Discharge Disposition: Home - Self Care Allergies Active Allergy Reactions Criticality Noted Date Comments Iodinated Contrast Media 01/26/2022 Will need premedicated for any Contrast Studies Enoxaparin Rash High 05/16/2021 documented as of this encounter (statuses as of 10/06/2023) Medications Medication Sig Dispensed Refills Start Date [...] Inhalation Solution (Duoneb)Indications :ILD (interstitial lung disease) ([facility]),Pulmonary hypertension ([facility]) INHALE THE CONTENTS OF 1 VIAL VIA NEBULIZER 3 TIMES A DAY NEEDED 810 mL 3 04/25/2021 Active Symbicort 80-4.5 MCG/ACT Inhalation Aerosol (Budesonide-Formote rol)Indications:Int erstitial lung disease ([facility]) INHALE 2 PUFFS IN THE MORNING AND [...] acute pulmonary embolism without acute cor pulmonale ([facility]) Take 1 Tablet by mouth in the [...] as of this encounter (statuses as of 10/06/2023) Active Problems Problem Noted Date Diagnosed Date [...] as of this encounter (statuses as of 10/06/2023) Resolved Problems Problem Noted Date Diagnosed Date [...] as of this encounter (statuses as of 10/06/2023) Immunizations No known immunizationsdocumented as of this [...] No 05/06/2021 documented as of this encounter Plan of Treatment Upcoming Encounters Date Type Department Care Team (Late st Contact Info) Description 03/27/2024 8:40 AM EDT Office Visit [place] [address] [place] [address] Candie Rey PA-C [facility] [address] [place] [address] 07/11/2024 11:00 AM EST PulmDiagnostic Pulmonary Function Lab, [address] [address] [facility], Pulm Function Room [address] [place] [address] 07/11/2024 11:30 AM EST Appointment Radiology, [address] [phone] Scheduled Procedures Name Priority Associated Diagnoses Date/Ti me COLONOSCOPY FLEXIBLE PROXIMAL DIAGNOSTIC Recall Diverticulosis Health Maintenance Due Date Last Done Comments Pneumococcal Vaccine: 65+ Years (1 of 2 - PCV) 1962 DTaP,Tdap,and Td Vaccines (1 - Tdap) 1975 Zoster Vaccines (1 of 2) 2006 COVID-19 Vaccine (1 - 2022-24 season) 2023 Influenza Vaccine (FLU shot) (#1) [...] this encounter Medical Devices Implanted Type Area Beater And Pulper Feeder Device Identifier Shelf Expiration Date Model / Serial / Lot Clip Quick 2.8mm 230cm - [id number] Implanted:Qty: 5 on 03/05/2020 by Brent Barrow MD at OR [facility] [employer] [facility] 05/12/2022 [id number]-202UR.A / / [id number] Description:Sigmoid colon = site placed documented as of this encounter Procedures Procedure Name Priority Date/Time Associated Diagnosis Comments MAMMOGRAM SCREENING HEMANTH BILATERAL Routine 10/05/2023 1:56 PM EST Encounter for screening mammogram for breast cancer documented in this encounter Results * MAMMOGRAM SCREENING HEMANTH BILATERAL (10/05/2023 1:56 PM EST) Anatomical Region Laterality Modality Breast Bilateral Mammography Narrative 10/05/2023 6:42 PM EST Result MAMMOGRAM SCREENING HEMANTH BILATERAL History Encounter for screening mammogram for breast cancer The patient has no documented relevant family history. Films Compared 09/04/2022 MAMMOGRAM SCREENING HEMANTH BILATERAL, 09/01/2021 MAMMOGRAM DIAGNOSTIC HEMANTH BILATERAL, 03/04/2021 MAMMOGRAM DIAGNOSTIC HEMANTH RIGHT, 08/24/2020 MAMMOGRAM DIAGNOSTIC HEMANTH RIGHT, 08/16/2020 MAMMOGRAM SCREENING HEMANTH BILATERAL, and 08/11/2019 MAMMOGRAM SCREENING HEMANTH BILATERAL Findings The breasts have scattered areas of fibroglandular density. There is no evidence of suspicious masses, calcifications, or other abnormal findings. Impression Bilateral No mammographic evidence of malignancy. BI-RADS Category: 1 - Negative. Recommendation Screening mammogram in 1 year is recommended for both breasts. Digital breast tomosynthesis was performed. This digital mammogram has been analyzed with the computer aided detection system. This notice contains the results of your recent mammogram, including information about breast density. If your mammogram shows that your breast tissue is dense, you should know that dense breast tissue is a common finding and is not abnormal. Statistics show many women could have dense or highly dense breasts. Dense breast tissue can make it harder to find cancer on a mammogram and may be associated with an increased risk of cancer. This information about the result of your mammogram is given to you to raise your awareness and to inform your conversations with your physician. Together, you can decide which screening options are right for you, based on your mammogram results, individual risk factors or physical examination. A report of your results was sent to your physician. Your mammographic breast density on today's study is described above. There are four categories of breast density on mammography. Fatty breasts and those with scattered fibroglandular tissue are not considered dense. Heterogeneously dense or extremely dense tissue is considered "dense". Please understand that assessment of breast density may vary from year to year. This examination was performed at [facility], [address] [place] [address], [place] [address]. Candie Rey PA-C RAD MAMMOGRAPHY documented in this encounter Visit Diagnoses Diagnosis Encounter for screening mammogram for breast cancer documented in this encounter Advance Directives Documents on File Type Date Recorded Patient Sagger Maker Expl anation Advance Directives and Living Will 12/27/2022 ADVANCE DIRECTIVE / LIVING WILL Power of Jewel Bearing Turner 12/27/2022 POWER OF A TTORNEY - [facility] Latest Code Status on File [...] the patient have Health Care Power of Jewel Bearing Turner? No Full Code 03/03/2020 4:23 PM 03/03/2020 9:41 PM This order reflects the patients wishes and were consensually agreed upon. Question Answer Comments Discussion of Advance Directives occurred with: Patient Full Code 06/28/2018 9:42 AM 07/18/2018 6:19 PM This order reflects the patients wishes and were consensually agreed upon. Question Answer Comments Discussion of Advance Directives occurred with: Patient/Family Care Teams Welcome Wagon Host/Hostess Relationship Specialty Start Date End Date Candie Rey PA-C [address] [facility] [address] [place] [address] PCP - General Physician Staker Surveying 08/30/20 documented as of this encounter
--- OUTSIDE RECORDS SUMMARY | 2023-11-19 12:26 | External Medical Summary ---
Author Name Unknown Address Unknown Organization K01:[facility] - [address] [place] [address] Laboratory Report Ordering Provider Test Date Status LENARDNIK 09/27/2023 11:18:10 Final Observation Date Value Abnormality Reference (Units ) Status Magnesium 09/27/2023 11:18:10 2.2 1.5-2.6 (m g/dL) Final Performing Location [facility] - [address] [place] [address]
--- OUTSIDE RECORDS SUMMARY | 2023-11-19 12:26 | External Medical Summary | Summary of Care ---
Author Name Unknown Organization [facility] Address [address] [place] [address] Phone [phone] Care Team Providers Care Hull Line Crew Member Name Role Phone Candie Rey PA-C Primary Care Provider +1- [phone] Reason for Visit * Reason Onset Date Comments Test Results 10/10/2023 Order Request 10/10/2023 Encounter Details Date Type Department Care Team (Late st Contact Info) Description 10/10/2023 Telephone [facility] [address] [place] [address] Susana Ansari RN Test Results; Order [...] Inhalation Solution (Duoneb)Indications :ILD (interstitial lung disease) ([facility]),Pulmonary hypertension ([facility]) INHALE THE CONTENTS OF 1 VIAL VIA NEBULIZER 3 TIMES A DAY NEEDED 810 mL 3 04/25/2021 Active Symbicort 80-4.5 MCG/ACT Inhalation Aerosol (Budesonide-Formote rol)Indications:Int erstitial lung disease ([facility]) INHALE 2 PUFFS IN THE [...] acute pulmonary embolism without acute cor pulmonale ([facility]) Take 1 Tablet by mouth [...] encounter Miscellaneous Notes * Telephone Encounter - Susana Ansari RN - 10/10/2023 2:08 PM EST Please help schedule one year mammogram. Thank you! Reason for Call: Test Results and Order Request Contact: [facility] Contact Type: Care Coordination Outcome: MyG sent. Order placed. Face to face time spent with Patient (minutes): 0 Total Time including non face to face (minutes): 10 documented in this encounter Plan of Treatment Upcoming Encounters Date Type Department Care Team (Late st Contact Info) Description 03/27/2024 8:40 AM EDT Office Visit [place] [address] [place] [address] Candie Rey, PARiaz [address] [place] [address] [place] [address] 07/11/2024 11:00 AM EST PulmDiagnostic Pulmonary Function Lab, [facility] [address] [facility] [address] [address], Pulm Function Room 2 [address] [facility] [address] 07/11/2024 11:30 AM EST Appointment Radiology, [facility] [place] [phone] Scheduled Orders Name Type Priority Associated Diagnoses [...] this encounter Medical Devices Implanted Type Area Photogrammetric Technician Device Identifier Shelf Expiration Date Model / Serial / Lot Clip Quick 2.8mm 230cm - [id number] Implanted:Qty: 5 on 03/05/2020 by Brent Barrow MD at OR [facility] [employer] 05/12/2022 [id number]-202UR.A / / [id number] Description:Sigmoid colon = site placed documented as of this encounter Visit Diagnoses Diagnosis Encounter for screening mammogram for breast cancer- Primary documented in this encounter Advance Directives Documents on File Type Date Recorded 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 No Full Code 03/03/2020 4:23 PM 03/03/2020 9:41 PM This order reflects the patients wishes and were consensually agreed upon. Question Answer Comments Discussion of Advance Directives occurred with: Patient Full Code 06/28/2018 9:42 AM 07/18/2018 6:19 PM This order reflects the patients wishes and were consensually agreed upon. Question Answer Comments Discussion of Advance Directives occurred with: Patient/Family Care Teams Hull Line Crew Member Relationship Specialty Start Date End Date Candie Rey PA-C [address] [facility] [address] [place] [address] PCP - General Physician County Nurse 08/30/20 documented as of this encounter
--- OUTSIDE RECORDS SUMMARY | 2023-11-19 12:26 | External Medical Summary ---
Author Name Unknown Address Unknown Organization K01:LABORATORY [facility] - [address] [place] [address] Laboratory Report Ordering Provider Test Date Status NIK WEINBERG 09/27/2023 11:18:10 Final Observation Date Value Abnormality Reference (Units ) Status TSH 09/27/2023 11:18:10 1.92 0.27-4.20 (uIU/mL) Final Performing Location LABORATORY C - [address] [place] [address]
--- OUTSIDE RECORDS SUMMARY | 2023-11-19 12:26 | External Medical Summary | Summary of Care ---
Author Name Unknown Organization [facility] Address [address] [place] [address] Phone [phone] Care Team Providers Care Plate Inspector Name Role Phone Candie Rey PA-C Primary Care Provider +1- [phone] Reason for Visit * Reason Comments Outpatient Testing Encounter Details Date Type Department Care Team (Late st Contact Info) Description 09/27/2023 11:40 AM [facility] Laboratory Laboratory Patient Service [address] [phone] [id number] Acquired hypothyroidism; Encounter for long-term (current) use of medications Allergies Active Allergy Reactions Criticality Noted Date Comments Iodinated Contrast Media 01/26/2022 Will need premedicated for any Contrast Studies Enoxaparin Rash High 05/16/2021 documented as of this encounter (statuses as of 09/27/2023) Medications Medication Sig Dispensed Refills Start Date [...] Inhalation Solution (Duoneb)Indications :ILD (interstitial lung disease) ([facility]),Pulmonary hypertension ([facility]) INHALE THE CONTENTS OF 1 VIAL VIA NEBULIZER 3 TIMES A DAY NEEDED 810 mL 3 04/25/2021 Active Symbicort 80-4.5 MCG/ACT Inhalation Aerosol (Budesonide-Formote rol)Indications:Int erstitial lung disease ([facility]) INHALE 2 PUFFS IN THE MORNING AND [...] acute pulmonary embolism without acute cor pulmonale ([facility]) Take 1 Tablet by mouth in the morning. 90 Tablet 3 04/12/2023 Active Pregabalin 50 MG Oral Capsule (Lyrica)Indications :Neuropathy Take 2 Capsules by mouth at bedtime. 180 Capsule 1 07/25/2023 Active Azithromycin 250 MG Oral Tablet (Zithromax)Indicati ons:Interstitial lung disease ([facility]) TAKE 1 TABLET ON MON, WED AND FRI 39 Tablet 3 08/02/2023 Active Fluconazole 150 MG Oral Tablet (Diflucan)Indicatio ns:Vagina, candidiasis Take 1 Tablet by mouth once for 1 dose. Repeat if symptoms are still present in 3 days. 2 Tablet 0 09/27/2023 4 Active Hospital, Clinic, or Other Facility Administered [...] as of this encounter (statuses as of 09/27/2023) Active Problems Problem Noted Date Diagnosed Date [...] as of this encounter (statuses as of 09/27/2023) Resolved Problems Problem Noted Date Diagnosed Date [...] as of this encounter (statuses as of 09/27/2023) Immunizations No known immunizationsdocumented as of this [...] Care Team (Late st Contact Info) Description 10/05/2023 2:00 PM EST Appointment Radiology, [place] [address] [place] [address] 03/27/2024 8:40 AM EDT Office Visit [place] [address] [place] [address] Candie Rey PA-C [address] [place] [address] 07/11/2024 11:00 AM EST PulmDiagnostic Pulmonary Function Lab, [facility] [address] [place] [address] Glh, Pulm Function Room 2 [address] [facility] [place] [address] 07/11/2024 11:30 AM EST Appointment Radiology, [facility] [address] [place] [phone] Pending Results Name Type Priority Associated Diagnoses Date /Time TSH WITH FREE T4 IF INDICATED Lab Routine Acquired hypothyroidism 09/27/2023 11:18 AM EST CBC Lab Routine Encounter for long-term (current) use of medications 09/27/2023 11:18 AM EST COMPREHENSIVE METABOLIC PANEL Lab Routine Encounter for long-term (current) use of medications 09/27/2023 11:18 AM EST VITAMIN B12 Lab Routine Encounter for long-term (current) use of medications 09/27/2023 11:18 AM EST MAGNESIUM Lab Routine Encounter for long-term (current) use of medications 09/27/2023 11:18 AM EST Scheduled Procedures Name Priority Associated Diagnoses Date/Ti [...] this encounter Medical Devices Implanted Type Area Drugless Physician Device Identifier Shelf Expiration Date Model / Serial / Lot Clip Quick 2.8mm 230cm - [id number] Implanted:Qty: 5 on 03/05/2020 by Brent Barrow MD at OR [facility] [employer] [facility] 05/12/2022 [id number]-202UR.A / / [id number] Description:Sigmoid colon = site placed documented as of this encounter Visit Diagnoses Diagnosis Acquired hypothyroidism Unspecified hypothyroidism Encounter for long-term (current) use of medications Encounter for long-term (current) use of other medications documented in this encounter Advance Directives Documents on File Type Date Recorded 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 No Full Code 03/03/2020 4:23 PM 03/03/2020 9:41 PM This order reflects the patients wishes and were consensually agreed upon. Question Answer Comments Discussion of Advance Directives occurred with: Patient Full Code 06/28/2018 9:42 AM 07/18/2018 6:19 PM This order reflects the patients wishes and were consensually agreed upon. Question Answer Comments Discussion of Advance Directives occurred with: Patient/Family Care Teams Plate Inspector Relationship Specialty Start Date End Date Candie Rey PA-C [address] [place] [address] [place] [address] PCP - General Physician Dry Sand Molder 08/30/20 documented as of this encounter
--- OUTSIDE RECORDS SUMMARY | 2023-11-19 12:26 | External Medical Summary | Summary of Care ---
Author Name Unknown Organization [facility] Address [address] [place] [address] Phone [phone] Care Team Providers Care Doctor Of Pharmacy Name Role Phone Candie Rey PA-C Primary Care Provider +1- [phone] Reason for Visit * Reason Onset Date Comments Health Maintenance 10/19/2023 Encounter Details Date Type Department Care Team (Late st Contact Info) Description 10/19/2023 Telephone [place] [address] [place], [place] [phone] Candie Rey PA-C [facility] [place], [place] [phone] Health Maintenance Allergies Active Allergy Reactions Criticality Noted Date Comments Iodinated Contrast Media 01/26/2022 Will need premedicated for any Contrast Studies Enoxaparin Rash High 05/16/2021 documented as of this encounter (statuses as of 10/19/2023) Medications Medication Sig Dispensed Refills Start Date [...] Inhalation Solution (Duoneb)Indications :ILD (interstitial lung disease) ([facility]),Pulmonary hypertension ([facility]) INHALE THE CONTENTS OF 1 VIAL VIA NEBULIZER 3 TIMES A DAY NEEDED 810 mL 3 04/25/2021 Active Symbicort 80-4.5 MCG/ACT Inhalation Aerosol (Budesonide-Formote rol)Indications:Int erstitial lung disease ([facility]) INHALE 2 PUFFS IN THE [...] acute pulmonary embolism without acute cor pulmonale ([facility]) Take 1 Tablet by mouth in the morning. 90 Tablet 3 04/12/2023 Active Pregabalin 50 MG Oral Capsule (Lyrica)Indications :Neuropathy Take 2 Capsules by mouth at bedtime. 180 Capsule 1 07/25/2023 Active Azithromycin 250 MG Oral Tablet (Zithromax)Indicati ons:Interstitial lung disease ([facility]CC) TAKE 1 TABLET ON MON, WED AND FRI 39 Tablet 3 08/02/2023 Active Hospital, Clinic, [...] as of this encounter (statuses as of 10/19/2023) Active Problems Problem Noted Date Diagnosed Date [...] as of this encounter (statuses as of 10/19/2023) Resolved Problems Problem Noted Date Diagnosed Date [...] as of this encounter (statuses as of 10/19/2023) Immunizations No known immunizationsdocumented as of this [...] encounter Miscellaneous Notes * Telephone Encounter - Martha Holliday LPN - 10/19/2023 12:04 PM EST Care Gaps Comprehensive Care Outreach Last Office/Telemedicine Visit: 09/27/2023 (in office), Visit date not found (telemedicine) Next Office Visit: 03/27/2024 Hemoglobin AIC Results: Lab Results Component Value Date/Time HEMOGLOBIN A1C - MARCEL 5.3 08/24/2022 07:22 AM BP Readings from Last 1 Encounters: 09/27/23 122/74 Reviewed Health Maintenance below: Health Maintenance Topic Date Due COVID-19 Vaccine ( season) Never done Depression Screening 06/19/2023 Care Gap Outreach Action Taken: Left message AWV documented in this encounter Plan of Treatment Upcoming Encounters Date Type Department Care Team (Late st Contact Info) Description 03/27/2024 8:40 AM EDT Office Visit [place] [address] [place] [address] Candie Rey PA-C [address] [place] [address] 07/11/2024 11:00 AM EST PulmDiagnostic Pulmonary Function Lab, [facility] [address] [place] [address] Gl, Pulm Function Room 2 [address] [place] [address] 07/11/2024 11:30 AM EST Appointment Radiology, [facility] [address] [place] [phone] 10/10/2024 1:00 PM EST Appointment Radiology, [place] [address] [facility] [place] [address] Scheduled Procedures Name Priority Associated Diagnoses Date/Ti [...] this encounter Medical Devices Implanted Type Area Metal Furniture Glazier Device Identifier Shelf Expiration Date Model / Serial / Lot Clip Quick 2.8mm 230cm - [id number] Implanted:Qty: 5 on 03/05/2020 by Brent Barrow MD at OR 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 No Full Code 03/03/2020 4:23 PM 03/03/2020 9:41 PM This order reflects the patients wishes and were consensually agreed upon. Question Answer Comments Discussion of Advance Directives occurred with: Patient Full Code 06/28/2018 9:42 AM 07/18/2018 6:19 PM This order reflects the patients wishes and were consensually agreed upon. Question Answer Comments Discussion of Advance Directives occurred with: Patient/Family Care Teams Doctor Of Pharmacy Relationship Specialty Start Date End Date Candie Rey PA-C [address] [facility] [address] [place] [address] PCP - General Physician Refined Syrup Operator 08/30/20 documented as of this encounter
--- OUTSIDE RECORDS SUMMARY | 2023-11-19 12:26 | External Medical Summary | Summary of Care ---
Author Name Unknown Organization [facility] Address [address] [place] [address] Phone [phone] Care Team Providers Care Diesel Technician Name Role Phone Candie Rey PA-C Primary Care Provider +1- [phone] Reason for Visit * Reason Onset Date Comments Health Maintenance 10/19/2023 Encounter Details Date Type Department Care Team (Late st Contact Info) Description 10/19/2023 Telephone [place] [address] [place], [place] [phone] Candie Rey PA-C [facility] [place], [place] [phone] Health Maintenance Allergies Active Allergy Reactions Criticality Noted Date Comments Iodinated Contrast Media 01/26/2022 Will need premedicated for any Contrast Studies Enoxaparin Rash High 05/16/2021 documented as of this encounter (statuses as of 10/22/2023) Medications Medication Sig Dispensed Refills Start Date [...] (Duoneb)Indications :ILD (interstitial lung disease) ([facility]),Pulmonary hypertension ([facility]) INHALE THE CONTENTS OF 1 VIAL VIA NEBULIZER 3 TIMES A DAY NEEDED 810 mL 3 04/25/2021 Active Symbicort 80-4.5 MCG/ACT Inhalation Aerosol (Budesonide-Formote rol)Indications:Int erstitial lung disease ([facility]) INHALE 2 PUFFS IN THE MORNING [...] embolism without acute cor pulmonale ([facility]) Take 1 Tablet by mouth in [...] as of this encounter (statuses as of 10/22/2023) Active Problems Problem Noted Date Diagnosed Date [...] as of this encounter (statuses as of 10/22/2023) Resolved Problems Problem Noted Date Diagnosed Date [...] as of this encounter (statuses as of 10/22/2023) Immunizations No known immunizationsdocumented as of this [...] Telephone Encounter - Martha Holliday LPN - 10/22/2023 4:24 PM EDT Awv scheduled * Telephone Encounter - Martha Holliday LPN - 10/19/2023 12:04 PM EST Care Gaps Comprehensive Care Outreach Last Office/Telemedicine Visit: 09/27/2023 (in office), Visit date not found (telemedicine) Next Office Visit: 03/27/2024 Hemoglobin AIC Results: Lab Results Component Value Date/Time HEMOGLOBIN A1C - HERNANER 5.3 08/24/2022 07:22 AM BP Readings from Last 1 Encounters: 09/27/23 122/74 Reviewed Health Maintenance below: Health Maintenance Topic Date Due COVID-19 Vaccine ( season) Never done Depression Screening 06/19/2023 Care Gap Outreach Action Taken: Left message AWV documented in this encounter Plan of Treatment Upcoming Encounters Date Type Department Care Team (Late st Contact Info) Description 01/22/2024 9:00 AM EDT Nurse [address] [facility] [address] [place] [address] [place], Nurse [facility] [address] [place] [address] 03/27/2024 8:40 AM EDT Office Visit [facility] [place] [address] [place] [address] Candie Rey, PA-C [address] [facility] [address] [place] [address] 07/11/2024 11:00 AM EST PulmDiagnostic Pulmonary Function Lab, [address] [address] [facility], [facility] [address] [facility] [address] 07/11/2024 11:30 AM EST Appointment Radiology, [address] [id number] 10/10/2024 1:00 PM EST [address]oint[address] [address] Scheduled Procedures Name Priority Associated Diagnoses Date/Ti [...] this encounter Medical Devices Implanted Type Area Tumbler Drier Operator Device Identifier Shelf Expiration Date Model / Serial / Lot Clip Quick 2.8mm 230cm - [id number] Implanted:Qty: 5 on 03/05/2020 by Brent Barrow MD at OR [facility] [employer] 05/12/2022 [id number] / [id number] Description:Sigmoid colon = site placed documented as of this encounter Advance Directives Documents on File Type Date Recorded Patient Business Risk Consultant Expl anation Advance Directives and Living Will 12/27/2022 ADVANCE DIRECTIVE / LIVING WILL Power of Lacquer Sprayer 12/27/2022 POWER OF A TTORNEY - DURABLE [...] the patient have Health Care Power of Lacquer Sprayer? No Full Code 03/03/2020 4:23 PM 03/03/2020 9:41 PM This order reflects the patients wishes and were consensually agreed upon. Question Answer Comments Discussion of Advance Directives occurred with: Patient Full Code 06/28/2018 9:42 AM 07/18/2018 6:19 PM This order reflects the patients wishes and were consensually agreed upon. Question Answer Comments Discussion of Advance Directives occurred with: Patient/Family Care Teams Diesel Technician Relationship Specialty Start Date End Date Candie Rey PA-C [address] [address] [place] [address] PCP - General Physician Bank Accountant 08/30/20 documented as of this encounter
--- OUTSIDE RECORDS SUMMARY | 2023-11-19 12:26 | External Medical Summary ---
Author Name Unknown Address Unknown Organization K01:[facility] [place] [address] [place] [address] Laboratory Report Ordering Provider Test Date Status NIK WEINBERG 09/27/2023 11:18:10 Final Observation Date Value Abnormality Reference (Units ) Status Vitamin B12 09/27/2023 11:18:10 [phone] (pg/mL) Final Performing Location LABORATORY [facility] - [address] [place] [address]
--- OUTSIDE RECORDS SUMMARY | 2023-11-19 12:26 | External Medical Summary | Summary of Care ---
Author Name Unknown Organization [facility] Address [address] [place] [address] Phone [phone] Care Team Providers Care Bowling Alley Refinisher Name Role Phone Candie Rey PA-C Primary Care Provider +1- [phone] Reason for Visit * Reason Onset Date Comments Hospital Follow-Up Hospital Follow-Up 09/27/2023 Encounter Details Date Type Department Care Team (Late st Contact Info) Description 09/27/2023 11:00 AM EST Office Visit [place] [address] [place] [phone] Candie Rey PA-C [facility] [address] [place] [phone] Hospital discharge follow-up*; Vagina, candidiasis; Surgical site infection; S/P total knee replacement, right; Chronic hypoxemic respiratory failure (HCC); Pulmonary hypertension (HCC); Interstitial lung disease (HCC); Morbid obesity due to excess calories (HCC) Allergies Active Allergy Reactions Criticality Noted Date Comments Iodinated Contrast Media 01/26/2022 Will need premedicated for any Contrast Studies Enoxaparin Rash High 05/16/2021 documented as of this encounter (statuses as of 10/21/2023) Medications Medication Sig Dispensed Refills Start Date [...] mouth daily. Factor five herbal supplement from [employer] - Take 2 capsules by mouth daily for inflammation 0 Active CPAP every night at bedtime. Auto 6-15 cm 0 Active Ipratropium-Albute rol 0.5-2.5 (3) MG/3ML Inhalation Solution (Duoneb)Indication s:ILD (interstitial lung disease) (HCC),Pulmonary hypertension (HCC) INHALE THE CONTENTS OF 1 [...] MON, WED AND FRI 39 Tablet 3 3 Active Fluconazole 150 MG Oral Tablet (Diflucan) Take 1 Tablet by mouth once for 1 dose. 1 Tablet 0 4 09/27/19 24 Discontinue d(Refill) Fluconazole 150 MG Oral Tablet (Diflucan)Indicati ons:Vagina, candidiasis Take 1 Tablet by mouth once for 1 dose. Repeat if symptoms are still present in 3 days. 2 Tablet 0 4 09/27/19 24 Hospital, Clinic, or Other Facility Administered Medication [...] 07/11/2023 07/10/2024 Ac tive Albuterol Sulfate (Proventil) (2.5 MG/3ML) 0.083% inhalation solution 2.5 mgIndications:Interstit ial lung disease (HCC) 2.5 mg NEBULIZER PRN 10/04/2022 10/04/2023 En ded Albuterol Sulfate (Proventil) (5 MG/ML) 0.5% *conc* inhalation solution 2.5 mgIndications:Interstit ial lung disease (HCC) 2.5 mg NEBULIZER PRN 10/04/2022 10/04/2023 En ded documented as of this encounter (statuses as of 10/21/2023) Active Problems Problem Noted Date Diagnosed Date [...] as of this encounter (statuses as of 10/21/2023) Resolved Problems Problem Noted Date Diagnosed Date [...] 06/30/201808/19 Morbid obesity 06/30/2018 08/19/2018 Chronic anticoagulation 06/28/2018 09/11/2020 documented as of this encounter (statuses as of 10/21/2023) Immunizations No known immunizationsdocumented as of this [...] on file documented as of this encounter Last Filed Vital Signs Vital Sign Reading Time Taken Comments Blood Pressure 122/74 09/27/2023 10:49 AM EST Pulse 60 09/27/2023 10:49 AM EST Temperature 36.4 C (97.6 F) 09/27/2023 1 0:49 AM EST Respiratory Rate 18 09/27/2023 10:4 9 AM EST Oxygen Saturation 99% 09/27/2023 10: 49 AM EST Inhaled Oxygen Concentration - - Weight 104.7 kg (230 lb 14.4 oz) 2023 10:49 AM EST Height - - Body Mass Index 45.09 07/11/2023 9:17 AM EST documented in this encounter Functional Status Functional Status Response [...] No 05/06/2021 documented as of this encounter Progress Notes * Candie Rey PA-C - 09/27/2023 10:52 AM EST Subjective: Shraddha Mendez is a 66 year old female. Nursing Notes: Liliana Khalil LPN 09/27/23 0821 Signed Chief Complaint Patient presents with Hospital Follow-Up Shraddha Mendez is a 68 year old female who presents to clinic today for HFU from [facility]. HPI: Patient presents for hospital follow up. Patient presents for hospital follow up. Admitted to [facility] 09/01-09/05 for surgical site infection. S/P R TKA 08/09/23. Treated with IV antiobiotics and improved. Finished antibiotics 09/18/23. Now dealing with yeast infection. Visit with Dr. Johnston yesterday and was released. Scheduled for L TKA 11/19/23. CHRONIC: Chronic diastolic CHF: Weights are stable. Hx of Atrial Flutter. Cardiology discontinued Cardizem in January. Denies SOB, chest pain, edema, syncope, or palpitations. Wt Readings from Last 4 Encounters: 09/27/23 104.7 kg (230 lb 14.4 oz) 07/11/23 109.8 kg (242 lb) 03/13/23 106.5 kg (234 lb 14.4 oz) 10/18/22 106.4 kg (234 lb 9.6 oz) GERD: Well controlled with omeprazole. Denies side effects. Still has hoarseness, which is felt to be related to her large hiatal hernia. Denies abdominal pain, indigestion, regurgitation, or difficulty swallowing. Hypothyroidism: Stable. Taking levothyroxine as prescribed. Denies side effects. Denies fatigue, hair/skin/nail changes. TSH Results: Lab Results Component Value Date/Time TSH - [facility] 2.62 08/24/2022 07:22 AM TSH - [facility] 3.15 08/17/2021 10:24 AM TSH - [facility] 2.06 01/14/2021 08:29 AM TSH - [facility] 2.24 01/15/2020 08:09 AM TSH - [facility] 3.15 12/05/2018 08:17 AM TSH - [facility] 7.01 (H) 10/24/2018 08:14 AM PMH: Patient Active Problem List Diagnosis Code Chronic hypoxemic respiratory failure ([facility]) J96.11 Large hiatal hernia K44.9 Gastroesophageal reflux disease without esophagitis K21.9 Chronic diastolic congestive heart failure ([facility]) I50.32 Pulmonary hypertension ([facility]) I27.20 Interstitial lung disease ([facility]) J84.9 History of atrial flutter Z86.79 History of DVT (deep vein thrombosis) Z86.718 RBBB (right bundle branch block) I45.10 Acquired hypothyroidism E03.9 Class 3 severe obesity due to excess calories with serious comorbidity and body mass index (BMI) of45.0 to 49.9 in adult ([facility]) E66.01, Z68.42 JANINE (obstructive sleep apnea) G47.33 Cardiac murmur, previously undiagnosed R01.1 History of pulmonary embolism Z86.711 History of 2019 novel coronavirus disease (COVID-19) Z86.16 Current Outpatient Medications Medication Sig Dispense Refill acetaminophen (TYLENOL) 325 MG Tablet Take 1 Tablet by mouth every 4 hours as needed for Pain. Ascorbic Acid (VITAMIN C) 500 MG CAPS Take 1 Cap by mouth 2 times a day. With iron 180 Cap 3 Ventolin HFA 108 (90 Base) MCG/ACT Inhalation Aerosol Solution Inhale 2 Puffs by mouth every 4 hours as needed for Shortness of Breath. 18 g 6 Spacer/Aero-Holding Chambers Device Use as directed with Symbicort. 1 Each 0 CAM MISCELLANEOUS MEDICATION Take 2 Caps by mouth daily. Factor five herbal supplement from apothecary - Take 2 capsules by mouth daily for inflammation CPAP every night at bedtime. Auto 6-15 cm Ipratropium-Albuterol 0.5-2.5 (3) MG/3ML Inhalation Solution (Duoneb) INHALE THE CONTENTS OF 1 VIALVIA NEBULIZER 3 TIMES A DAY NEEDED 810 mL 3 Symbicort 80-4.5 MCG/ACT Inhalation Aerosol (Budesonide-Formoterol) INHALE 2 PUFFS IN THE MORNING AND 2 PUFFS BEFORE BEDTIME 30.6 g 3 Famotidine 20 MG Oral Tablet (Pepcid) TAKE 1 TABLET EVERY 12 HOURS 180 Tablet 2 Omeprazole 20 MG Oral Capsule Delayed Release (PriLOSEC) TAKE 1 CAPSULE EVERY DAY 90 Capsule 2 Levothyroxine Sodium 50 MCG Oral Tablet (Levoxyl) TAKE 1 TABLET EVERY DAY FIRST THING IN THE MORNING 90 Tablet 1 Furosemide 20 MG Oral Tablet (Lasix) TAKE 2 TABLETS IN THE MORNING 180 Tablet 1 FeroSul 325 (65 Fe) MG Oral Tablet (Ferrous Sulfate) TAKE 1 TABLET THREE TIMES DAILY (MORNING, NOON, AND BEFORE BEDTIME) 270 Tablet 2 Rivaroxaban 10 MG Oral Tablet (Xarelto) Take 1 Tablet by mouth in the morning. 90 Tablet 3 Pregabalin 50 MG Oral Capsule (Lyrica) Take 2 Capsules by mouth at bedtime. 180 Capsule 1 Azithromycin 250 MG Oral Tablet (Zithromax) TAKE 1 TABLET ON MON, SUN AND FRI 39 Tablet 3 Current Facility-Administered Medications Medication Dose Route Frequency Provider Last Rate Last Admin Albuterol Sulfate (Proventil) (2.5 MG/3ML) 0.083% inhalation solution 2.5 mg 2.5 mg Nebulizer Camilo Wilkerson MD Albuterol Sulfate (Proventil) (5 MG/ML) 0.5% *conc* inhalation solution 2.5 mg 2.5 mg Nebulizer Camilo Valle MD Albuterol Sulfate (Proventil) (2.5 MG/3ML) 0.083% inhalation solution 2.5 mg 2.5 mg Nebulizer Camilo Wilkerson MD Albuterol Sulfate (Proventil) (5 MG/ML) 0.5% *conc* inhalation solution 2.5 mg 2.5 mg Nebulizer Camilo Valle MD Past Medical History: Diagnosis Date Asthma DVT (deep vein thrombosis) in 2014 GERD (gastroesophageal reflux disease) ILD (interstitial lung disease) (HCC) Pulmonary arterial hypertension (HCC) Pulmonary HTN (HCC) Respiratory failure with hypoxia (HCC) Past Surgical History: Procedure Laterality Date COLONOSCOPY, DIAGNOSTIC (RECTUM) N/A 03/05/2020 poor prep/active diverticular bleed/hemostasis with epi injection and clips/COLONOSCOPY FLEXIBLE PROXIMAL DIAGNOSTIC performed by Brent Barrow MD at OR [facility] COLONOSCOPY, DIAGNOSTIC (RECTUM) N/A 01/06/2021 diverticulosis/non-bleeding internal hemorrhoids/recall 5-10 years/COLONOSCOPY FLEXIBLE PROXIMAL DIAGNOSTIC performed by Concepción Mcduffie MD at OR [facility] EGD, FLEXIBLE, DIAGNOSTIC 03/05/2020 large hiatal hernia/biopsies normal/ESOPHAGOGASTRODUODENOSCOPY (EGD), FLEXIBLE, TRANSORAL, DIAGNOSTIC performed by Brent Barrow MD at OR [facility] NONE Review of patient's allergies indicates: Allergen Reactions Lovenox [Enoxaparin] Rash Iodinated Contrast Media Will need premedicated for any Contrast Studies Family History Problem Relation Age of Onset Heart failure Mother CHF Diabetes Mother Hypertension Mother Hyperlipidemia Mother Other (COVID) Mother Diabetes Father Parkinsonism Father Heart Disorder Father s/p pacemaker No Known Problems Sister No Known Problems Sister No Known Problems Sister Arthritis Brother Hypertension Brother Family Status Relation Status Mo Alive Fa Sis Alive Bro Alive Bro Alive Sis Alive Sis Alive Social History Tobacco Use Smoking status: Never Smoker Smokeless tobacco: Never Used Substance Use Topics Alcohol use: No Frequency: Never Review of Systems: All reviewed and negative unless mentioned in HPI. Objective: BP 122/74 | Pulse 60 | Temp 36.4 C (97.6 F) | Resp 18 | Wt 104.7 kg (230 lb 14.4 oz) | LMP (LMPUnknown) | SpO2 99% | BMI 45.09 kg/m | BSA 2.11 m Physical Exam: General: alert and no distress Neck: supple, no adenopathy, no bruits, thyroid normal size, non-tender, without nodularity Heart: regular rate & rhythm, no murmurs and no gallops Lungs: faint wheezing throughout Pulses: radial=2/4, posterior tibial=2/4 Abdomen: abdomen soft, non-tender, normal bowel sounds and no masses or organomegaly Extremities: no clubbing, no cyanosis, no edema Neuro Exam: alert & oriented x 3 with fluent speech, no focal motor/sensory deficits Gait: using wheelchair for ambulation Skin: skin color, texture, turgor are normal, no rashes or significant lesions ASSESSMENT/PLAN: Hospital discharge follow-up (Primary) - DISCH MED RECON CUR MED LIS Vagina, candidiasis - Fluconazole 150 MG Oral Tablet (Diflucan); Take 1 Tablet by mouth once for 1 dose. Repeat if symptoms are still present in 3 days. Surgical site infection S/P total knee replacement, right Chronic hypoxemic respiratory failure (HCC) Pulmonary hypertension (HCC) Interstitial lung disease (HCC) Morbid obesity due to excess calories (HCC) Follow Up: Return in about 6 months (around 03/27/2024). Candie Rey PA-C I spent a total of 40-54 minutes (exact time 45 mins) on the date of service in preparation, delivery, and documentation of the care provided to Shraddha Mendez excluding any time spent in the performance of separately billed services. documented in this encounter Nursing Notes * Liliana Khalil LPN - 09/27/2023 8:17 AM EST Chief Complaint Patient presents with Hospital Follow-Up Shraddha Mendez is a 68 year old female who presents to clinic today for HFU from [facility]. documented in this encounter Plan of Treatment Upcoming Encounters Date Type Department Care Team (Late st Contact Info) Description 03/27/2024 8:40 AM EDT Office Visit [place] [address] [place] [address] Candie Rey PA-C [address] [place] [address] [place] [address] 07/11/2024 11:00 AM EST PulmDiagnostic Pulmonary Function Lab, [facility] [address] [facility] [place] [address] [facility], Pulm Function Room 2 [address] [facility] [place] [address] 07/11/2024 11:30 AM EST Appointment Radiology, [facility] [address] [place] [phone] 10/10/2024 1:00 PM EST Appointment Radiology, [address] [place] [address] Scheduled Procedures Name Priority Associated Diagnoses Date/Ti [...] this encounter Medical Devices Implanted Type Area Image Editor Device Identifier Shelf Expiration Date Model / Serial / Lot Clip Quick 2.8mm 230cm - [id number] Implanted:Qty: 5 on 03/05/2020 by Brent Barrow MD at OR [facility] [email or web address] 05/12/2022 [id number] Description:Sigmoid colon = site placed documented as of this encounter Visit Diagnoses Diagnosis Hospital discharge follow-up- Primary Other follow-up examination Vagina, candidiasis Candidiasis of vulva and vagina Surgical site infection S/P total knee replacement, right Chronic hypoxemic respiratory failure (HCC) Chronic respiratory failure Pulmonary hypertension (HCC) Other chronic pulmonary heart diseases Interstitial lung disease (HCC) Postinflammatory pulmonary fibrosis Morbid obesity due to excess calories (HCC) documented in this encounter Advance Directives Documents on File Type Date Recorded Patient Community Aide Expl anation Advance Directives and Living Will 12/27/2022 ADVANCE DIRECTIVE / LIVING WILL Power of Airplane Cleaner 12/27/2022 POWER OF A TTORNEY - DURABLE [...] the patient have Health Care Power of Airplane Cleaner? No Full Code 03/03/2020 4:23 PM 03/03/2020 9:41 PM This order reflects the patients wishes and were consensually agreed upon. Question Answer Comments Discussion of Advance Directives occurred with: Patient Full Code 06/28/2018 9:42 AM 07/18/2018 6:19 PM This order reflects the patients wishes and were consensually agreed upon. Question Answer Comments Discussion of Advance Directives occurred with: Patient/Family Care Teams Bowling Alley Refinisher Relationship Specialty Start Date End Date Candie Rey PA-C [address] [facility] [address] [place] [address] PCP - General Physician Analytical Technician 08/30/20 documented as of this encounter"
--- NOTE | 2023-11-19 12:37 | Operative Report ---
PG Post Operative Report Pre & Post Diagnosis Operation Date: 11/19/23 11:00 Pre-Op Diagnosis: Left Knee Degenerative Joint Disease Post-Op Diagnosis: Left Knee Degenerative Joint Disease I identified the patient and participated in the time-out.: Yes Procedure Operation Date: 11/19/23 11:00 Actual Procedures p Left Total Knee Arthroplasty(Left) - Amilcar Johnston DO Surgeon Amilcar Johnston DO Bruise Trimmer Amilcar Vaca PA-C Estimated Blood Loss 30 Findings Consistent with Post-Op Diagnosis Specimens Left femoral tibial bone Description of Procedure Implants used: I used a Zeina Persona total knee arthroplasty system with a size 7 standard PRK femur, D tibia, 31 oval patella, and a size 14 CCK polyethylene bearing. All components were cemented in place with Biomet cement. Shraddha arrived [facility] for the above procedure. She was seen in the preoperative holding area and the operative extremity was identified and signed. She was given a preoperative antibiotic, TXA, a spinal anesthetic and an adductor nerve block. She was taken back to the operating room and laid on the table in supine position. She was given basic sedation. The operative knee was then prepped and draped in sterile fashion. A timeout was done, and the patient and the operative extremity was properly identified. A midline incision was made directly over the patella. Dissection was taken down to the extensor mechanism. A medial parapatellar arthrotomy was used. The medial retinaculum was released and the fat pad was mostly excised. The knee was flexed and the ACL, PCL, and meniscus were removed. A drill was sent down the center of the femoral canal followed by an intramedullary blake. Off that blake a distal femoral cutting block was placed. 9 mm was resected off the distal femur at 5 of valgus. A posterior referencing AP sizing guide was then placed on the distal femur. The femur measured to be a size 7. 2 drill holes were placed in 3 of external rotation. A 4-in-1 cutting block was then impacted into place. Anterior, posterior, and chamfer cuts were then made. The proximal tibia was then exposed. An external tibial alignment guide was placed. A tibial cut guide was then anchored in place and the proximal tibia was then resected. The posterior aspect of the knee was then opened up and any additional meniscus fragments and osteophytes were removed. The tibia measured to be a size D. The tibial plate was then placed in the appropriate rotation and the tibia was drilled and punched. Trial components were then placed. I used a size 14 CCK polyethylene insert. The knee was brought through a full range of motion and felt to be stable. The peg holes for the femoral component were then drilled. The patella was then everted and 9 mm was resected off the posterior aspect of the patella. The patella measured to be a size 31 oval. 3 peg holes were then drilled. A trial patella was placed. The knee was once again brought through a full range of motion and felt to be stable. Trial components were then removed. The surrounding soft tissues were injected with 100 cc of an orthopedic pain control cocktail. All components were then cemented into place with Biomet cement. The final polyethylene insert was then snapped into place. Once cement was dry the tourniquet was deflated. Hemostasis was obtained. A dilute betadyne lavage was then done for 3 minutes. The joint was then irrigated with normal saline solution. The medial parapatellar arthrotomy was then closed with #1 Vicryl suture. The skin was closed with 2-0 Vicryl, 3-0V lock suture, and emy. A soft compressive dressing was placed. She was then transferred to a hospital bed and taken to the postanesthesia care unit in stable condition. She tolerated the procedure well. Amilcar Vaca PA-C, was present for the entire procedure. He was critical for patient positioning, prepping, draping, retraction exposure, wound closure and application of sterile dressing. I attest to the content of the Intraoperative Record and any orders documented therein. Any exceptions are noted below. I attest to the content of the Intraoperative Record and any orders documented therein. Any exceptions are noted below.
--- NOTE | 2023-11-19 13:49 | XRay Report ---
XR knee LT 1 or 2V routine CLINICAL HISTORY: Surgical Post Op TECHNIQUE: 2 views of the left knee were obtained. Comparison: Comparison is made to knee radiographs 09/26/2023 FINDINGS: Patient is status post total knee arthroplasty with expected postsurgical changes including soft tiss ue swelling and subcutaneous emphysema. No periarticular lucency or hardware fracture is seen. IMPRESSION: Expected postoperative appearance status post placement of total knee arthroplasty. ACT 112: Negative or not required by law. Electronically signed by: Sandip Castillo M.D. 11/19/2023 1:48 PM
--- NOTE | 2023-11-19 14:30 | Anesthesiology Progress Note ---
Date of Service November 19, 2023 Anesthesia Post Procedure Vital Signs Vital Signs: Temp Pulse Pulse Resp BP Pulse Ox O2 Del Method 11/19/23 14:20 36.2 C L 58 L 13 128/71 96 Room Air 11/19/23 14:10 59 L 14 128/74 94 Room Air 11/19/23 14:00 59 L 13 134/77 93 Room Air 11/19/23 13:50 58 L 19 125/74 93 Room Air 11/19/23 13:40 60 20 131/72 93 Room Air 11/19/23 13:30 60 14 126/73 93 Room Air 11/19/23 13:20 61 13 133/73 96 Room Air 11/19/23 13:10 63 16 124/75 100 Oxymask 11/19/23 13:04 36.0 C L 58 L 20 128/78 100 Oxymask 11/19/23 09:43 36.5 C 61 20 124/84 98 Room Air O2 Flow Rate 11/19/23 14:20 0 11/19/23 14:10 0 11/19/23 14:00 0 11/19/23 13:50 0 11/19/23 13:40 0 11/19/23 13:30 0 11/19/23 13:20 0 11/19/23 13:10 4 11/19/23 13:04 6 11/19/23 09:43 Transfer of Care Handoff Completed per policy Notes Mental Status: alert / awake / arousable Patient Amnestic to Procedure: Yes Nausea / Vomiting: adequately controlled Pain: adequately controlled Airway Patency, RR, SpO2: stable & adequate BP & HR: stable & adequate Hydration State: stable & adequate Neuraxial Anesthesia: was administered and sensory block is resolving Anesthetic Complications: no major complications apparent
--- NOTE | 2023-11-19 14:46 | Anesthesiology Progress Note ---
Date of Service November 19, 2023 Anesthesia Post Procedure Vital Signs Vital Signs: Temp Pulse Pulse Resp BP Pulse Ox O2 Del Method 11/19/23 14:35 58 L 12 121/68 91 Room Air 11/19/23 14:20 36.2 C L 58 L 13 128/71 96 Room Air 11/19/23 14:10 59 L 14 128/74 94 Room Air 11/19/23 14:00 59 L 13 134/77 93 Room Air 11/19/23 13:50 58 L 19 125/74 93 Room Air 11/19/23 13:40 60 20 131/72 93 Room Air 11/19/23 13:30 60 14 126/73 93 Room Air 11/19/23 13:20 61 13 133/73 96 Room Air 11/19/23 13:10 63 16 124/75 100 Oxymask 11/19/23 13:04 36.0 C L 58 L 20 128/78 100 Oxymask 11/19/23 09:43 36.5 C 61 20 124/84 98 Room Air O2 Flow Rate 11/19/23 14:35 0 11/19/23 14:20 0 11/19/23 14:10 0 11/19/23 14:00 0 11/19/23 13:50 0 11/19/23 13:40 0 11/19/23 13:30 0 11/19/23 13:20 0 11/19/23 13:10 4 11/19/23 13:04 6 11/19/23 09:43 Transfer of Care Handoff Completed per policy Notes Mental Status: alert / awake / arousable Patient Amnestic to Procedure: Yes Nausea / Vomiting: adequately controlled Pain: adequately controlled Airway Patency, RR, SpO2: stable & adequate BP & HR: stable & adequate Hydration State: stable & adequate Neuraxial Anesthesia: was administered and sensory block is resolving Anesthetic Complications: no major complications apparent and Pt Satisfied with anesthetic care
[2023-11-19] MEDS ORDERED: bisacodyL 10 MG SUPP PR PRN (17:03)
[2023-11-19] MEDS ORDERED: NALOXONE HCL 0.4 MG/1 ML VIAL/CARP IV PRN (17:03)
[2023-11-19] MEDS ORDERED: METOCLOPRAMIDE HCL INJ 5 MG/ML 2 ML VIAL IV PRN (17:03)
[2023-11-19] MEDS ORDERED: HYDROmorphone INJ 0.5 MG/0.5 ML SYR IV PRN (17:03)
[2023-11-19] MEDS ORDERED: MAGNESIUM HYDROXIDE SUSP 30 ML UDC PO PRN (17:03)
[2023-11-19] MEDS: ACETAMINOPHEN 500 MG TAB ONE (17:21)
[2023-11-19] MEDS: KETOROLAC 30 MG/ML VIAL ONE (17:22)
[2023-11-19] MEDS: KETOROLAC TROMETHAMINE 15 MG/ML VIAL IV SCH (17:23)
[2023-11-19] MEDS: SODIUM CHLORIDE 0.9% 1,000 ML IV SCH (17:28)
[2023-11-19] MEDS: oxyCODONE HCL IR 5 MG TAB (IMMEDIATE RELEASE) PO PRN (18:03)
[2023-11-19] MEDS: PREGABALIN 100 MG CAP PO SCH (20:53)
[2023-11-19] MEDS: DOCUSATE SODIUM 100 MG CAP PO SCH (20:53)
[2023-11-19] MEDS: SENNA 8.6 MG TAB PO SCH (20:53)
[2023-11-19] MEDS: traMADol HCL 50 MG TABLET PO PRN (20:53)
[2023-11-19] MEDS: FLUTICASONE/VILANTEROL 100/25MCG 14 PUFFS/INHALER INH SCH (20:54)
[2023-11-20 02:55] VITALS: O2SAT 98
[2023-11-20] MEDS: LEVOTHYROXINE SODIUM 50 MCG TABLET PO SCH (05:38)
[2023-11-20 06:33] VITALS: BP 104/78; RESP 18; TEMP 98.1
[2023-11-20] MEDS: PANTOprazole 40 MG TAB PO SCH (07:47)
[2023-11-20] MEDS: dexAMETHasone 4 MG TAB PO SCH (07:47)
[2023-11-20] MEDS: MULTIVITAMIN TAB PO SCH (07:47)
[2023-11-20] MEDS: FUROSEMIDE 40 MG TAB PO SCH (07:47)
[2023-11-20 10:01] VITALS: PULSE 82
--- NOTE | 2023-11-20 10:07 | Orthopedic Progress Note ---
Date of Service November 20, 2023 Assessment & Plan (1) Status post left knee replacement: Overall, she is doing quite well today with good pain control to the left knee. She will work with physical therapy later this morning to work on ambulation and range of motion exercises. She is currently on Xarelto for DVT prophylaxis. She can be discharged home later this morning pending physical therapy evaluation and recommendation. She will follow-up with orthopedics in 2 weeks for postoperative management. Subjective . Shraddha was seen and evaluated this morning resting comfortably in bed in no apparent distress. She notes that her pain is well-controlled to the left knee. She has been up and out of bed with no significant issues. She has yet to work with physical therapy this morning. She denies any other concerns today. Review of Systems All systems reviewed & are unremarkable except as noted in HPI & below. Physical Exam . On physical examination of the left knee, dressings are clean, dry, intact. Her leg is out in full extension. She has active plantarflexion dorsiflexion of the left ankle. +2 DP and PT pulses. Less than 2-second capillary refill. Normal sensation. Neurovascular intact. Results & Data Results & Data Laboratory Results . Diagnostic Findings . Postoperative x-rays of the left knee show prosthesis to be in anatomical alignment with no signs of fracture complication or loosening. PG Care Time/CCT Total # of Minutes Spent Total Time Spent with Patient: Total time spent is greater than 50% in coordination of care (as documented) at patient's floor/unit and/or counseling patient: Coding Level of Care Code 81227 Post Operative Follow-Up Diagnoses Status post left knee replacement Z96.652
--- NOTE | 2023-11-20 10:09 | Discharge Summary ---
Date of Service November 20, 2023 Admission HPI (Per Admitting) Shraddha is a pleasant 68-year-old female who is now 7 weeks status post right total knee arthroplasty. Postoperative course has been complicated by a postoperative cellulitis. She was placed on oral antibiotics. She is doing much better and the cellulitis has completely resolved. She has been off the antibiotics for the last week. It has not returned. She has no pain in her right knee. Unfortunately, she is dealing with a lot of left knee pain and she has known osteoarthritis of her left knee. After failing extensive conservative treatment with the left knee, she has elected proceed with a left total knee arthroplasty. Admission Exam (Per Admitting) Physical examination of the left knee, she has severe varus deformity. Tenderness palpation of the distal medial femoral condyle and over the medial joint line.. Principal Diagnosis Same as "Discharge Diagnosis" noted below under Discharge Instructions. Discharge Exam . On physical examination of the left knee, dressings are clean, dry, intact. Her leg is out in full extension. She has active plantarflexion dorsiflexion of the left ankle. +2 DP and PT pulses. Less than 2-second capillary refill. Normal sensation. Neurovascular intact. Discharge Data Procedures Performed Operation Date: 11/19/23 11:00 Actual Procedures p Left Total Knee Arthroplasty(Left) - Amilcar Johnston DO Ordered Studies 11/19/23 05:00 US - OR guided needle placemen Routine Hospital Course (1) Status post left knee replacement: On November 19, 2023 Shraddha arrived at [facility] and underwent a left total knee arthroplasty without complications performed by Dr. Johnston. She had a spinal anesthetic. Postoperatively, she was transferred to the PACU for immediate postoperative management and then transferred to the general orthopedic floor in stable condition. Her hospital course was uneventful. On postoperative day #1, her vital signs were stable and her pain was well- controlled. She was restarted on her Xarelto for DVT prophylaxis. She participated well with physical therapy working on ambulation and range of motion exercises. She was then discharged home in stable condition. She will follow-up orthopedics in 2 weeks for postoperative management. PG Care Time/CCT Total # of Minutes Spent Total Time Spent with Patient: Total time spent is greater than 50% in coordination of care (as documented) at patient's floor/unit and/or counseling patient: Discharge Plan Discharge Items Patient Disposition: Home - Home Health Services Reason For Visit: Left Knee Degenerative Joint Disease Discharge Diagnosis: Same Activity: Per Instructions section Non-emergency contact: Surgeon Call non-emergency contact if: your temperature is above 101.5, your wound has increased redness and your wound has increased drainage Follow-up/Referrals: Candie Rey PA-C [Primary Care Provider] - Diet: Regular Addtl Attending Provider Instructions: Activity and Therapy Recommendations: * If you are using [facility] then therapy will be provided at your home until they feel you have accomplished all of your goals. * If you are using [facility] then Physical Therapy will be provided until they feel you are ready to start Outpatient Physical Therapy. * If you are not using home therapy then Outpatient Physical Therapy should start about 3-5 days from your day of surgery. Therapy will last about 6-10 weeks * It is important not to put a pillow under your knee when you are relaxing or sleeping. It is just as important to make sure you are getting your knee perfectly straight as it is to regain your knee bend. * You were shown a series of exercises in the hospital. Do these exercises three times each day including the exercises you were shown in physical therapy. * Get up and walk several times each day. For the first four weeks, try not to stand or walk for more than one hour at a time. If you do stand or walk for more than one hour, you will not hurt anything, but your leg will likely swell. * As you feel comfortable, you may change from the walker or crutches to a cane and then to independent walking. Medications: * Narcotic You will likely be sent home from the hospital with a prescription for the narcotic pain medication that worked best throughout your stay. * * Cefadroxil -take the antibiotic twice a day for 10 days to help with infection * Xarelto -continue taking your Xarelto as prescribed. * Other medications may be prescribed for specific circumstances. If you have any questions, please call the office at . * Resume previous home medications unless otherwise instructed TEDs/Elastic Stockings: The white elastic stockings help limit swelling and prevent blood clots from forming in your legs.~ The more you wear them, the more they work. Wear them for six weeks. Dressing Care: The dressing can be changed after physical therapy on postop day #1. Daily dry dressing changes for a few days, especially if the incision is still draining some. If the incision is not draining then you may leave the emy open to air. If there is a little bit of drainage or if the emy are getting stuck on your clothing then cover the incision with a dry dressing. The emy will be removed at your 2 week follow-up appointment. Showering: You may shower 5 days from the day of surgery as long as the incision is no longer draining. You may shower with the emy exposed. Let soapy water run over the emy and pat them dry. Do not scrub or soak the incision. Things To Watch For: * Drainage from the incision site that occurs more than one week after your surgery. * Increased redness at the incision site. * Fever above 102 degrees Fahrenheit. * Unusual chest pain or shortness of breath. * Call [facility] at with any of the above problems Follow-Up Visit: Follow-up with Dr. Johnston's PA (Amilcar Vaca) 2-3 weeks after your day of surgery. He will remove your emy and answer any questions. If you have any additional questions or concerns, Dr Johnston is usually in the office at the same time and will be available An appointment was probably scheduled when you signed-up for surgery in the office. If you have any questions call Office Instructions: More detailed instructions as well as Frequently Asked Questions were provided in a folder by our office when you signed-up for surgery. Please review these instructions when you get home. If you have any further questions or concerns, please feel free to call the office at [phone] Pending Studies at Discharge: No Stand-Alone Forms: [facility] - Opioid Pain Management, Smoking Cessation Medications and DC Order Prescriptions: New oxycodone 5 mg Tablet 5 mg PO Q6 PRN (Reason: pain) Qty: 30 0RF cefadroxil 500 mg capsule 500 mg PO BID 10 Days Qty: 20 0RF Continued acetaminophen 325 mg capsule 325 mg PO QID PRN (Reason: prn) ipratropium-albuterol 0.5 mg-3 mg(2.5 mg base)/3 mL solution for nebulization 3 ml inhalation Q6H PRN (Reason: Shortness Of Breath) famotidine 20 mg tablet 20 mg PO BID ferrous sulfate 325 mg (65 mg iron) tablet 325 mg PO TID furosemide 20 mg tablet 40 mg PO QAM levothyroxine 50 mcg capsule 50 mcg PO QAM omeprazole 20 mg capsule,delayed release(DR/EC) 20 mg PO QAM pregabalin 50 mg capsule 100 mg PO HS Xarelto 10 mg tablet 10 mg PO QPM budesonide-formoterol [Symbicort] 80-4.5 mcg/actuation HFA aerosol inhaler 2 puff inhalation BID albuterol sulfate [Ventolin HFA] 90 mcg/actuation HFA aerosol inhaler 2 puff inhalation Q6H PRN (Reason: Shortness Of Breath) ascorbic acid (vitamin C) 500 mg capsule 500 mg PO TID psyllium husk 1 tbsp PO DAILY azithromycin [Zithromax] 250 mg Tablet 250 mg PO [id number] Patient Comments: takes sun/sun/sun in am Krames/Other Patient Handouts: DVT Post Op Prevention Admission Data Admit Date/Time: 11/19/23 11:53 Attending Provider: Amilcar Johnston Admit Provider: Amilcar Johnston Primary Care Provider: Candie Rey Other Interventions: Discharge Summary Assessment (RN) Last Done: 11/20/23 10:00
[2023-11-20] MEDS ORDERED: RIVAROXABAN 10 MG TABLET PO SCH (21:00)
== END 2023-11-20 11:23 | disposition home or self-care (01) ==
LOC: ASU 09:14 → PACUINP 09:14 → 3W 19:36 → UNDODISOB 11-20 10:50
DX: M65.9 Synovitis and tenosynovitis, unspecified; G47.33 Obstructive sleep apnea (adult) (pediatric); Z79.51 Long term (current) use of inhaled steroids; Z86.718 Personal history of other venous thrombosis and embolism; I27.20 Pulmonary hypertension, unspecified; Z86.711 Personal history of pulmonary embolism; Z88.8 Allergy status to other drugs, medicaments and biological substances; M25.762 Osteophyte, left knee; Z91.041 Radiographic dye allergy status; Z79.890 Hormone replacement therapy; J84.10 Pulmonary fibrosis, unspecified; I48.91 Unspecified atrial fibrillation; M17.12 Unilateral primary osteoarthritis, left knee; Z88.1 Allergy status to other antibiotic agents; Z79.899 Other long term (current) drug therapy; Z79.01 Long term (current) use of anticoagulants